=== PATIENT | male | born 1965 | race Caucasian/White ===

== ENCOUNTER → 2020-09-08 09:09 | Outpatient (BNVA) | payer OTHER, SELFPAY | PROVIDERS: PCP Family Medicine; Visit Provider Internal Medicine Cardiovascular Disease | DX: I95.9 Hypotension, unspecified (principal); I10 Essential (primary) hypertension; I25.118 Atherosclerotic heart disease of native coronary artery with other forms of angina pectoris | CPT/HCPCS: 93005; 99212 ==

== ENCOUNTER 2020-10-20 12:34 | Outpatient (REF) | payer OTHER, SELFPAY ==
--- NOTE | ~2020-10-20 | CT_ITS ---
EXAMINATION: CT LUMBAR SPINE WITHOUT CONTRAST CLINICAL INFORMATION: Low back pain. COMPARISON: Plain films of the lumbar spine 02/07/2018. MRI scan of the lumbar spine 10/19/2016. TECHNIQUE: A noncontrast axial CT scan of the lumbar spine was obtained. Coronal and sagittal reformatted images were generated at the acquisition workstation. This CT examination was performed using dose optimization techniques as appropriate, variously including the following: *Automated exposure control *Adjustment of mA and/or kV according to patient size (this includes techniques or standardized protocols for targeted exams where dose is matched to indication/reason for exam; i.e. extremities or head) *Use of iterative reconstruction technique DLP; 566 mGy-cm FINDINGS: There is a mild levoscoliosis. There has been interval decrease in the mild dextroscoliosis of L4 on L5. There are bilateral pedicular screws joined by vertical rods in L4 and L5 and there is an interbody device. These findings are new compared to the prior MRI scan, but were seen on the more recent plain films. There is sclerosis of the endplates of L4-L5 and there is suggestion of mild subsidence of the interbody device. Intervertebral disc heights are maintained at other levels. Vertebral bodies have normal height and contour no fractures are demonstrated. Overall, marrow signal is homogenous. The visualized retroperitoneal and pelvic structures are unremarkable. Spinal levels: T12-L1: The facet joints appear normal bilaterally. Disc contour is normal. There is no central stenosis or foraminal narrowing. L1-L2: There is moderate to severe bilateral facet arthropathy. Posterior disc contour is normal. There is no central stenosis or foraminal narrowing. L2-L3: There is moderate bilateral facet arthropathy. Disc contour is normal. There is no central stenosis or foraminal narrowing. L3-L4: There is moderate bilateral facet arthropathy. There is mild annular calcification, and there are small inferior foraminal disc protrusions bilaterally without exiting nerve root impingement. There is no central stenosis. L4-L5: There has been a instrumented posterior decompression and fusion. There is moderate to severe bilateral facet arthropathy. There is an osteophytic ridge off the inferior endplate of L4 centrally and toward the left, but there is no central stenosis. There may be small disc osteophytes in the inferior neural foramina. L5-S1: There is severe bilateral facet arthropathy. There is a left-sided facet osteophyte narrowing the left subarticular recess. There is a prominent posterior disc protrusion, which compresses the thecal sac and impinges on the traversing S1 nerve roots bilaterally. Small protrusions are noted in the inferior neural foramina bilaterally, more prominent on the left. There is mild to moderate central stenosis. CT/CT lumbar spine wo con IMPRESSION: 1. Since the prior MRI scan there has been an instrumented posterior decompression and fusion at L4-L5. The hardware appears intact. 2. There is a large posterior disc protrusion at L5-S1 which compresses the thecal sac and impinges on the traversing S1 nerve roots. There is mild to moderate central stenosis. There are bilateral foraminal protrusions. 3. At L4-L5 there is an osteophytic ridge off the inferior endplate of L4 centrally and toward the left. There may be small disc osteophytes in the inferior neural foramina. There is no central stenosis.
== END 2020-10-20 12:35 | disposition home or self-care (01) ==
LOC: HO.CT 12:34
PROVIDERS: Visit Provider Family Medicine
DX: M54.5 Low back pain (principal)
CPT/HCPCS: 72131

== ENCOUNTER 2021-04-24 10:00 | Outpatient (RCR) | payer OTHER, SELFPAY ==
[2021-04-21 10:07] VITALS: BP 114/69; PULSE 62
== END 2021-05-12 10:41 | disposition home or self-care (01) ==
LOC: HO.PT 10:00
PROVIDERS: PCP Family Medicine; Visit Provider Family Medicine
DX: M54.5 Low back pain (principal)
CPT/HCPCS: 97110; 97162; 97530

== ENCOUNTER → 2021-09-11 08:39 | Outpatient (BNVA) | payer OTHER, SELFPAY | PROVIDERS: PCP Family Medicine; Referring Provider Family Medicine; Visit Provider Internal Medicine Cardiovascular Disease | DX: I25.10 Atherosclerotic heart disease of native coronary artery without angina pectoris (principal); I10 Essential (primary) hypertension | CPT/HCPCS: 93005; 99212 ==

== ENCOUNTER → 2021-10-20 07:29 | Outpatient (REF) | payer OTHER, SELFPAY ==
--- NOTE | 2021-10-20 07:31 | CA_ITS ---
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 Study Quality: Fair ECG Rhythm: Sinus Conclusions: - 1. Normal LV systolic function with mild LVH with grade 1 diastolic dysfunction 2. Normal cardiac valvular Doppler 3. Normal RV systolic pressure 4. No pericardial effusion Findings Left Ventricle Normal left ventricular size and systolic function. There is mildly increased left ventricular wall thickness. The visually estimated ejection fraction is between 60-65%. Spectral Doppler is indicative of an impaired relaxation filling pattern. E/E prime ratio is <8, consistent with normal filling pressures. Evidence suggests grade I (mild) diastolic dysfunction. Right Ventricle Normal right ventricular cavity size and systolic function. Atria The left atrium is normal in size. There is lipomatous hypertrophy of the interatrial septum. There is no evidence of interatrial shunt. The right atrium is normal in size. Aortic Valve The aortic valve structure and function is likely normal. There is mild calcification of the aortic valve. There is no aortic valve stenosis. There is no aortic valve regurgitation. Mitral Valve Normal mitral valve structure and function. There is trace mitral valve regurgitation. There is no mitral valve stenosis. Pulmonic Valve The pulmonic valve was not well visualized. Tricuspid Valve Likely normal tricuspid valve structure and function. There is trace tricuspid valve regurgitation. The right ventricular systolic pressure is normal. There is no evidence of pulmonary hypertension. Great Vessels All visible segments of the aorta are normal in size. The pulmonary artery was not well visualized. Venous The inferior vena cava is normal in size and collapses greater than 50% with inspiration. Pericardium/Pleural There is no evidence of pericardial effusion. Measurements 2D Linear Measurements IVSd: 1.29 0.6-0.9/0.6-1.0 cm LVIDd: 3.59 3.9-5.3/4.2-5.9 cm LVIDd Index: 1.80 2.4-3.2/2.2-3.1 cm/m2 LVIDs: 2.40 2.0-3.6 cm LVPWd: 1.25 0.7-1.1 cm Ao Root: 3.10 2.1-3.5 cm LA Diam: 3.40 2.7-3.8/3.0-4.0 cm LAIDs Index: 1.71 1.5-2.3 cm/m2 LV Mass: 191.44 67-162/88-224 g LV Mass Index: 96.20 43-95/49-115 g/m2 LVOT Diam: 2.00 3.0+(-)1.3 cm Mitral Valve MV Pk E: 0.70 MV PK A: 0.75 MV Decel Time: 168.00 E/A: 0.90 E'Lateral: 8.70 E'Medial: 6.53 E/E' Med: 10.70 E/E' Lat: 8.00 PHT: 49.00 MVA PHT: 4.49 Decel [place]: 4.16 Aortic Valve AoV Pk Sagar: 1.54 AoV Mn Sagar: 1.02 AoV VTI: 0.32 AoV Pk Grad: 9.00 Aov Mn Grad: 5.00 LAUREN Cont.VTI: 2.53 LVOT LVOT Pk Sagar: 1.20 LVOT Mn Sagar: 0.74 LVOT VTI: 0.26 LVOT Pk Grad: 6.00 LVOT Mn Grad: 3.00 LVOT Diam: 2.00 LVOT Area: 3.14 Diastolic Function MV Pk E: 0.70 MV Pk A: 0.75 E/A: 0.90 E'Medial: 6.53 E/E' Med: 10.70 E' Laterial: 8.70 E/E' Lat: 8.00 Tricuspid Valve TR Pk Sagar: 1.67 TR Pk Grad: 11.00 RA Press: 3.00 RVSP: 14.00 Great Vessels Aorta Ao Root-2D: 3.10 2.0-3.7 cm Ao Asc: 3.10 2.1-3.4 cm Pulmonary Valve PV Pk Sagar: 1.14 Peak PV Grad: 5.00 Updated in Other Vendor System with Status of Final Meek Modi MD electronically signed on 10/20/2021 5:07:30 PM with status of Final
== END ==
LOC: HO.CARD 07:29
PROVIDERS: PCP Family Medicine; Visit Provider Internal Medicine Cardiovascular Disease
DX: I25.10 Atherosclerotic heart disease of native coronary artery without angina pectoris (principal)
CPT/HCPCS: 93306

== ENCOUNTER 2021-12-06 09:24 | Outpatient (REF) | payer OTHER, SELFPAY ==
--- NOTE | 2021-12-06 09:29 | EMG_ITS ---
This is a 56-year-old man with history of persistent numbness in the right 5th finger for more than 6 months. PHYSICAL EXAMINATION: He is alert and oriented with normal intellectual functions. Cranial nerves II through XII are normal. He has mild weakness of finger spread and numbness in the right 5th finger and the ulnar border of the 4th finger. IMPRESSION: Ulnar neuropathy. 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 EMG of the right C6-T1 innervated muscles, consistent with chronic denervation in the ulnar innervated intrinsic hand muscles. MD DON Nash/AALIYAH / [id number]
== END 2021-12-06 09:25 | disposition home or self-care (01) ==
LOC: HO.NEURO 09:24
PROVIDERS: PCP Family Medicine; Visit Provider Family Medicine
DX: R20.2 Paresthesia of skin (principal)
CPT/HCPCS: 95885; 95910

== ENCOUNTER → 2021-12-13 10:42 | Outpatient (BNVA) | payer OTHER, SELFPAY | PROVIDERS: PCP Family Medicine; Visit Provider Orthopaedic Surgery | DX: M65.351 Trigger finger, right little finger (principal); G56.21 Lesion of ulnar nerve, right upper limb | CPT/HCPCS: 99202 ==

== ENCOUNTER → 2022-02-01 13:24 | Outpatient (BNVA) | payer OTHER, SELFPAY | PROVIDERS: PCP Family Medicine; Referring Provider Family Medicine; Visit Provider Nurse Practitioner Family | DX: Z01.810 Encounter for preprocedural cardiovascular examination (principal); I25.118 Atherosclerotic heart disease of native coronary artery with other forms of angina pectoris; I10 Essential (primary) hypertension; E78.5 Hyperlipidemia, unspecified; E11.9 Type 2 diabetes mellitus without complications; Z79.899 Other long term (current) drug therapy | CPT/HCPCS: 93005; 99212; Q3014 ==

== ENCOUNTER → 2022-09-13 08:13 | Outpatient (BNVA) | payer OTHER, SELFPAY | PROVIDERS: PCP Family Medicine; Referring Provider Family Medicine; Visit Provider Internal Medicine Cardiovascular Disease | DX: I25.10 Atherosclerotic heart disease of native coronary artery without angina pectoris (principal); I10 Essential (primary) hypertension | CPT/HCPCS: 99212 ==

== ENCOUNTER 2023-04-04 08:47 | Outpatient (AMB) | payer OTHER, SELFPAY ==
[2023-04-04 08:50] VITALS: BP 115/60; PULSE 70; BMI 29.2
--- NOTE | 2023-04-04 08:50 | MHC.OFFVIS ---
Intake Vital Signs 04/04/23 08:50 Height 5 ft 6 in Weight 180 lb 12.465 oz BMI 29.2 BP 115/60 Blood Pressure Location Lt brachial Position Sitting Pulse 70 Intake Visit Reasons: 6 month f/u EKG Intake Note: 6 month f/u with ekg Academic Guidance Specialist Required: Yes Academic Guidance Specialist Name: robert eddy [id number] Allergies No Known Allergies [No Known Allergies*] Allergy (Verified 04/04/23 08:58) Medication List - Last Reconciled 04/04/23 by Maki Van NP-C albuterol sulfate 90 mcg/actuation 90 mcg inhalation Q4H PRN amitriptyline 10 mg PO BEDTIME aspirin 81 mg PO QAM atorvastatin 80 mg PO BEDTIME cetirizine 10 mg PO BEDTIME cholecalciferol (vitamin D3) 50 mcg PO DAILY dulaglutide (Trulicity) mg subcut QWEEK enalapril maleate 10 mg PO BID metoprolol succinate ER 100 mg PO QAM nitroglycerin 0.4 mg sublingual ONCE sertraline 100 mg PO DAILY HPI 6 month f/u EKG HPI Details Chino is a 58-year-old male with past medical history of hypertension, hyperlipidemia, diabetes, mild obesity, 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 Today he states that he has been doing well over the last 6 months. He does admit to having a discomfort in his left chest region and shortness of breath when he walks fast. He tells me he has had this symptom right along and it is not new. He also describes having problems with his left pleura which is causing pain at times with deep inspiration. Tells me this discomfort is different than the feeling he gets with walking. No shortness of breath or chest discomfort at rest or during the night. No PND, orthopnea or edema. No dizziness, presyncope, syncope, falls. He does normal ADLs but no routine exercise. He takes all meds as directed. 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 [facility] Medical History Coronary artery arteriosclerosis Diabetes mellitus Exertional angina HTN (hypertension) Hyperlipidemia Surgical History History of back surgery Hx of cardiac cath Hx of colonoscopy Family History Father No problems noted. Mother Breast cancer Social History Alcohol intake: current Alcohol intake frequency: holidays/special occasions only Patient Tobacco Use Status: Never used Tobacco Review of Systems Const All systems reviewed & are unremarkable except as noted in HPI and below ENT Reports dizziness Card Reports chest pain, Denies chest pain at rest, Denies chest pain with activity, Denies rapid heart rate, Denies pedal edema, Denies edema, Denies leg edema, Denies lightheadedness, Denies palpitations, Denies dyspnea, Reports dyspnea on exertion and Denies orthopnea Resp Denies cough, Denies dyspnea and Reports dyspnea on exertion GI Denies hematochezia and Denies change in stool character Musc Denies abnormal gait, Reports limited range of motion, Reports muscle cramps, Denies muscle weakness, Denies numbness, Denies radiating pain into limb, Denies stiffness and Denies tingling Neuro Denies abnormal gait, Reports dizziness, Denies numbness and Denies tingling Endo Denies palpitations Physical Exam Vital Signs: Last Vital Signs Pulse 70 04/04/23 08:50 BP 115/60 04/04/23 08:50 BMI result Body Mass Index 29.2 Const General: cooperative, healthy appearing, no acute distress, alert and awake Orientation/consciousness: patient oriented x3 HEENT Head: Yes normal to inspection Eyes Sclerae: sclerae normal Neck Neck: Yes normal visual inspection Carotids: normal carotid upstroke Chest Chest palpation & inspection: normal inspection of the chest Resp Effort & Inspection: normal respiratory effort, able to speak in complete sentences and not labored Auscultation: clear to auscultation bilaterally, no crackles, no rales, no rhonchi and no wheezes Cardio Jugular venous distension: no JVD Rate: regular rate Rhythm: regular rhythm Heart sounds: S1 normal heart sound present and S2 normal heart sound present Peripheral pulses: Peripheral pulses 2+ throughout GI Inspection: Yes normal to inspection Skin General skin exam: no rashes or lesions noted Neuro General: patient oriented x3 Extrem General: Yes normal to inspection and No edema Psych Appearance: grossly normal Mental Status: mental status grossly normal Speech and movement: Normal speech and movement present Office Procedures EKG Details: Today, read by me, normal sinus rhythm, no acute ST or T-wave abnormalities, no significant change from prior EKG, rate 70, QTC 408 millisecond [id number], Complete Assessment & Plan Assessment & Plan (1) Coronary artery arteriosclerosis: Comment: 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 He has chronic stable exertional angina which is unchanged according to him. He is maintained on triple antianginal therapy including metoprolol, isosorbide and Ranexa. EKG today showing normal sinus rhythm with no acute ST or T-wave abnormalities, rate 70. Last echocardiogram done 10/20/2021 showing EF 60-65%, grade 1 diastolic dysfunction, no reports of regional wall motion abnormalities. Signs and symptoms of worsening angina reviewed. Continue current medical management including dual antianginals, aspirin, high-dose atorvastatin. Will increase the dose of his Ranexa to tried to improve upon his exertional symptoms. EKG in the office in 2 weeks. Has sublingual nitroglycerin he can use if needed for chest discomfort not relieved with rest. Emergency care if warranted for symptoms. Will update echo prior to next visit to reassess EF and wall motion. Cardiology follow-up 6 months sooner if needed (2) Exertional angina: Comment: Stable Code(s): I20.8 - Other forms of angina pectoris (3) HTN (hypertension): Code(s): I10 - Essential (primary) hypertension Plan: Well controlled at this time. (4) Hyperlipidemia: Code(s): E78.5 - Hyperlipidemia, unspecified Plan: [place] LDL goal less than 70 in patient with diabetes and CAD. Labs done 10/20/2019 at [facility] showed LDL 67. He continues on high-dose atorvastatin. Labs have been checked by his PCP. Will reach out to [facility] to obtain (5) Diabetes mellitus: Code(s): E11.9 - Type 2 diabetes mellitus without complications Plan: Hemoglobin A1c goal less than 7. Managed by his PCP Orders: Orders CA echo transthoracic complete 5 Months I25.10 - Atherosclerotic heart disease of [place] coronary artery without angina pectoris Coding Level of Care Code Est Pt Level 4 (95657) Diagnoses Coronary artery arteriosclerosis I25.10 Exertional angina I20.8 HTN (hypertension) I10 Hyperlipidemia E78.5 Diabetes mellitus E11.9 CPT Codes EKG - CPT: [id number], Complete ([id number]) Time Spent (min) 24 Comment Chart review, documentation, interview, assessment
== END 2023-04-04 09:20 | disposition home or self-care (01) ==
PROVIDERS: PCP Family Medicine; Referring Provider Family Medicine; Visit Provider Nurse Practitioner Family
DX: I25.119 Atherosclerotic heart disease of native coronary artery with unspecified angina pectoris (principal); I10 Essential (primary) hypertension; E78.5 Hyperlipidemia, unspecified; E11.9 Type 2 diabetes mellitus without complications
CPT/HCPCS: 93010; 99214

== ENCOUNTER → 2023-04-04 08:47 | Outpatient (BNVA) | payer OTHER, SELFPAY | PROVIDERS: PCP Family Medicine; Referring Provider Family Medicine; Visit Provider Nurse Practitioner Family | DX: I25.10 Atherosclerotic heart disease of native coronary artery without angina pectoris (principal); I20.8 Other forms of angina pectoris; I10 Essential (primary) hypertension; E78.5 Hyperlipidemia, unspecified; E11.9 Type 2 diabetes mellitus without complications | CPT/HCPCS: 93005; 99212 ==

== ENCOUNTER 2023-04-29 08:27 | Outpatient (REF) | payer OTHER, SELFPAY ==
[2023-04-29 11:17] LABS: MANUAL DIFF FLAG NO
[2023-04-29 11:37] LABS: Basophils Percent Auto 0.4 % (0-2); Eosinophils Absolute Auto 0.2 X10*3/uL (0.0-0.4); Eosinophils Percent Auto 2.3 % (0-4); Hematocrit 41.3 % (42.0-52.0); Hemoglobin 13.5 g/dl (14.0-18.0); Imm Gran Abs Auto 0.05 X10*3/uL (0.00-0.03); Imm Gran Pct Auto 0.6 % (0.0-0.4); Lymphocytes Absolute Auto 2.1 X10*3/uL (1.2-4.9); Lymphocytes Percent Auto 24.6 % (20-40); Mean Corpuscular HGB Conc 32.7 g/dl (31.0-36.0); Mean Corpuscular Hemoglobin 30.7 pg (27.0-33.0); Mean Corpuscular Volume 93.9 fL (80.0-98.0); Mean Platelet Volume 12.5 fL (9.4-12.4); Monocytes Absolute Auto 0.7 X10*3/uL (0.1-1.2); Monocytes Percent Auto 8.8 % (2-11); Neutrophils Absolute Auto 5.4 x10*3/uL (2.0-8.3); Neutrophils Percent Auto 63.3 % (45-73); Platelet Count 164 X10*3/uL (160-400); Red Cell Distribution Width 13.2 % (11.0-16.0); White Blood Count 8.4 X10*3/uL (4.8-10.8)
[2023-04-29 12:12] LABS: Estimated Average Glucose 128 mg/dL; Hemoglobin A1c % 6.1 % (<6.0)
[2023-04-29 12:26] LABS: Alanine Aminotransferase 42 U/L (0-40); Alkaline Phosphatase 47 U/L (39-117); Anion Gap 10 (12-20); Aspartate Amino Transferase 29 U/L (5-37); Bilirubin Direct 0.3 mg/dL (0.0-0.5); Bilirubin Total 0.7 mg/dL (0.0-1.0); Blood Urea Nitrogen 10 mg/dL (9-16); Calcium 8.8 mg/dL (8.4-10.2); Carbon Dioxide 28 mmol/L (22-29); Chloride 107 mmol/L (96-108); Cholesterol 90 mg/dL (<200); Estimated Glomerular Filt Rate > 60; Glucose Random 113 mg/dL (60-115); HDL Cholesterol 27 mg/dL (>40); LDL Cholesterol Calculated 43 mg/dL (<100); Sodium 140 mmol/L (135-145); Triglycerides 100 mg/dL (<150)
[2023-04-29 12:34] LABS: Free T4 (Free Thyroxine) 0.78 ng/dL (0.71-1.85); Thyroid Stimulating Hormone 1.43 uIU/mL (0.32-4.0)
[2023-04-29 13:03] LABS: Microalbum/Creatinine Ratio Ur 3.8 ug/mg cr (<30)
[2023-04-29 13:09] LABS: CT PCR NOT DETECTED (Not Detect.); NG PCR NOT DETECTED (Not Detect.)
[2023-04-30 04:11] LABS: Syphilis Screen Nonreactive (Nonreactive)
[2023-04-30 04:23] LABS: HIV AB/AG Nonreactive (Nonreactive); HIV Num 1 0.05 S/CO (0.00-0.99)
[2023-04-30 04:24] LABS: ~HepC Num1 0.68 S/CO (0.00-0.79); ~Hepatitis C Antibody Nonreactive (Nonreactive)
== END 2023-04-29 08:28 | disposition home or self-care (01) ==
LOC: HO.HHCL 08:27
PROVIDERS: Visit Provider Family Medicine
DX: E11.9 Type 2 diabetes mellitus without complications (principal); Z20.2 Contact with and (suspected) exposure to infections with a predominantly sexual mode of transmission; E78.5 Hyperlipidemia, unspecified; M54.50 Low back pain, unspecified; R21 Rash and other nonspecific skin eruption; L40.9 Psoriasis, unspecified; G25.81 Restless legs syndrome
CPT/HCPCS: 0353U; 80048; 80061; 80076; 82043; 82306; 83036; 84439; 84443; 85025; 86780; 86803; 87389

== ENCOUNTER → 2023-10-14 14:27 | Outpatient (REF) | payer OTHER, SELFPAY ==
--- NOTE | 2023-10-14 14:34 | CA_ITS ---
Transthoracic Echocardiogram Patient (Last, First, Middle): Chino Bo, Gender: Male Date of : 1965 Age: 58 Procedure Date: 10/14/2023 Procedure Type: Transthoracic Echocardiogram Location: OP Height: 167. cm Weight: 82.1 kg BSA: 1.91 m2 Heart Rate: 65 bpm BP: 110 / 65 mmHg Veneer Matcher: CHUY Referring MD: Maki Van [facility] Symptoms: I25.10 - Atherosclerotic heart disease of [place] coronary artery without... Study Quality: Fair ECG Rhythm: Sinus Conclusions: - The left ventricular systolic function is normal. The calculated ejection fraction is 61% by biplane method. - No obvious valvular pathology seen on this study. Findings Left Ventricle Normal left ventricular cavity size. There is normal left ventricular wall thickness. The left ventricular systolic function is normal. The calculated ejection fraction is 61% by biplane method. There is no evidence of regional wall motion abnormalities. Diastolic function is normal for age. LV peak GLS -19.3%. Right Ventricle Normal right ventricular cavity size and systolic function. Atria Both atria are normal in size. Aortic Valve There is a normal trileaflet aortic valve. There is no aortic valve stenosis. There is no aortic valve regurgitation. Mitral Valve The mitral valve appears normal. There is no mitral valve regurgitation. There is no mitral valve stenosis. Pulmonic Valve The pulmonic valve is likely normal. Tricuspid Valve There is no tricuspid valve regurgitation. Tricuspid regurgitation envelope is inadequate for calculation of right ventricular systolic pressure. Great Vessels The asc aorta is normal in size. Venous The inferior vena cava is normal in size and collapses greater than 50% with inspiration. Pericardium/Pleural There is no evidence of pericardial effusion. Prior Study Comparison No significant change compared to prior study dated: 10/20/2021. Recommendations, Care & Conclusions No obvious valvular pathology seen on this study. Measurements 2D Linear Measurements IVSd: 0.94 0.6-0.9/0.6-1.0 cm LVIDd: 4.44 3.9-5.3/4.2-5.9 cm LVIDd Index: 2.32 2.4-3.2/2.2-3.1 cm/m2 LVIDs: 2.06 2.0-3.6 cm LVPWd: 0.96 0.7-1.1 cm LA Diam: 2.30 2.7-3.8/3.0-4.0 cm LAIDs Index: 1.20 1.5-2.3 cm/m2 LV Mass: 173.75 67-162/88-224 g LV Mass Index: 90.97 43-95/49-115 g/m2 LVOT Diam: 1.80 3.0+(-)1.3 cm 2D Systolic Function EF 4C: 60.50 >55% EF 2C: 60.10 >55% EF BiP: 60.50 >55% Mitral Valve MV Pk E: 0.87 MV PK A: 0.86 MV Decel Time: 194.00 E/A: 1.00 E'Lateral: 8.16 E'Medial: 6.53 E/E' Med: 13.40 E/E' Lat: 10.70 PHT: 57.00 MVA PHT: 3.86 Decel [place]: 4.51 Aortic Valve AoV Pk Sagar: 1.27 AoV Mn Sagar: 0.86 AoV VTI: 0.25 AoV Pk Grad: 6.00 Aov Mn Grad: 4.00 LAUREN Cont.VTI: 2.24 LVOT LVOT Pk Sagar: 1.05 LVOT Mn Sagar: 0.73 LVOT VTI: 0.22 LVOT Pk Grad: 4.00 LVOT Mn Grad: 2.00 LVOT Diam: 1.80 LVOT Area: 2.54 Diastolic Function MV Pk E: 0.87 MV Pk A: 0.86 E/A: 1.00 E'Medial: 6.53 E/E' Med: 13.40 E' Laterial: 8.16 E/E' Lat: 10.70 Right Ventricle TAPSE (mm): 19.90 TVS' Sagar: 9.79 Tricuspid Valve RA Press: 3.00 Great Vessels Aorta Sinus of Valsalva: 3.10 2.0-3.5 cm Ao Asc: 3.00 2.1-3.4 cm Pulmonary Valve PV Pk Sagar: 0.95 Peak PV Grad: 4.00 Updated in Other Vendor System with Status of Final Kirk Hou MD electronically signed on 10/15/2023 5:59:25 AM with status of Final
== END ==
LOC: HO.CARD 14:27
PROVIDERS: PCP Family Medicine; Visit Provider Nurse Practitioner Family
DX: I25.10 Atherosclerotic heart disease of native coronary artery without angina pectoris (principal)
CPT/HCPCS: 93306; 93356

== ENCOUNTER → 2023-10-14 14:34 | Outpatient (BNV) | payer OTHER, SELFPAY | PROVIDERS: PCP Family Medicine; Visit Provider Internal Medicine | DX: I25.10 Atherosclerotic heart disease of native coronary artery without angina pectoris (principal) | CPT/HCPCS: 93306 ==

== ENCOUNTER 2023-10-24 08:34 | Outpatient (AMB) | payer OTHER, SELFPAY ==
[2023-10-24 08:37] VITALS: BP 114/62; PULSE 68; BMI 30.3
--- NOTE | 2023-10-24 08:37 | A.OFFVIS_ITS ---
Intake Vital Signs 10/24/23 08:37 Height 5 ft 6 in Weight 187 lb 13.341 oz BMI 30.3 BP 114/62 Blood Pressure Location Lt brachial Position Sitting Pulse 68 Pulse Source Pulse Oximeter Intake Visit Reasons: f/u after echo Marine Engine Driver Required: Yes Marine Engine Driver Language: Supply Chain Systems Manager Name: robert elena [id number] Allergies No Known Allergies [No Known Allergies*] Allergy (Verified 10/24/23 08:39) Medication List - Last Reconciled 10/24/23 by Maki Van NP-C amitriptyline 10 mg PO BEDTIME aspirin 81 mg PO QAM cetirizine 10 mg PO BEDTIME cholecalciferol (vitamin D3) 50 mcg PO DAILY dulaglutide (Trulicity) mg subcut QWEEK enalapril maleate 10 mg PO BID metoprolol succinate ER 100 mg PO QAM nitroglycerin 0.4 mg sublingual ONCE oxycodone 5 mg PO Q6H PRN ranolazine ER 500 mg PO BID 90 days HPI f/u after echo HPI Details Chino is a 58-year-old male with past medical history of hypertension, hyperlipidemia, diabetes, mild obesity, 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 Today he reports he has been doing well since his last visit in April. He denies any chest discomfort at rest or with activity. He has not been brought bothered by the prior left chest discomfort that he reported in the past. He has no concerning shortness of breath, PND, orthopnea or edema. No palpitations, lightheadedness, CP, syncope, falls. 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 Taking all meds as directed. He walks routinely for exercise. 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 [facility] Medical History Exertional angina Diabetes mellitus Hyperlipidemia HTN (hypertension) Coronary artery arteriosclerosis Surgical History Hx of colonoscopy History of back surgery Hx of cardiac cath Family History Father No problems noted. Mother Breast cancer Social History Alcohol intake: current Alcohol intake frequency: holidays/special occasions only Patient Tobacco Use Status: Never used Tobacco Review of Systems Const All systems reviewed & are unremarkable except as noted in HPI and below ENT Denies dizziness Card Denies chest pain, Denies chest pain at rest, Denies chest pain with activity, Denies rapid heart rate, Denies pedal edema, Denies edema, Denies leg edema, Denies lightheadedness, Denies palpitations, Denies dyspnea, Denies dyspnea on exertion and Denies orthopnea Resp Denies cough, Denies dyspnea and Denies dyspnea on exertion GI Denies hematochezia and Denies change in stool character Musc Denies abnormal gait, Denies limited range of motion, Denies muscle cramps, Denies muscle weakness, Denies numbness, Denies radiating pain into limb, Denies stiffness and Denies tingling Neuro Denies abnormal gait, Denies dizziness, Denies numbness and Denies tingling Endo Denies palpitations Physical Exam Vital Signs: Last Vital Signs Pulse 68 10/24/23 08:37 BP 114/62 10/24/23 08:37 BMI result Body Mass Index 30.3 Const General: cooperative, healthy appearing, comfortable and no acute distress Orientation/consciousness: patient oriented x3 Neck Neck: Yes normal visual inspection and Yes no JVD Carotids: normal carotid upstroke Chest Chest palpation & inspection: normal inspection of the chest Resp Effort & Inspection: normal respiratory effort Auscultation: clear to auscultation bilaterally, no rales, no rhonchi and no wheezes Cardio Jugular venous distension: no JVD Rate: regular rate Rhythm: regular rhythm Heart sounds: S1 normal heart sound present, S2 normal heart sound present, no murmurs and no rubs Neuro General: patient oriented x3 Extrem General: Yes normal to inspection, No no pedal edema and No calf tenderness Psych Appearance: grossly normal Mental Status: mental status grossly normal Speech and movement: Normal speech and movement present Assessment & Plan Assessment & Plan (1) Coronary artery arteriosclerosis: Comment: 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 He had chronic stable exertional angina which is now controlled with triple antianginal therapy including metoprolol, isosorbide and Ranexa. EKG last visit showing normal sinus rhythm with no acute ST or T-wave abnormalities, rate 70. Echocardiogram done 10/14/2023 showing EF 61%, no evidence of regional wall motion abnormalities. Condition stable at present. Signs and symptoms of worsening angina reviewed. Continue current medical management including antianginals, aspirin, high-dose atorvastatin. Has sublingual nitroglycerin he can use if needed for chest discomfort not relieved with rest. Emergency care if ever needed for symptoms. Cardiology follow-up 6 months sooner if needed (2) HTN (hypertension): Code(s): I10 - Essential (primary) hypertension Plan: Well controlled at this time. No med changes made (3) Hyperlipidemia: Code(s): E78.5 - Hyperlipidemia, unspecified Plan: [place] LDL goal less than 70 in patient with diabetes and CAD. Labs done 04/29/2023 showed LDL 43. Continue atorvastatin (4) Diabetes mellitus: Code(s): E11.9 - Type 2 diabetes mellitus without complications Plan: Hemoglobin A1c goal less than 7. Managed by his PCP Plan Time spent on chart review, documentation, interview and assessment Coding Level of Care Code Est Pt Level 3 (47367) Diagnoses Coronary artery arteriosclerosis I25.10 HTN (hypertension) I10 Hyperlipidemia E78.5 Diabetes mellitus E11.9 Time Spent (min) 24
== END 2023-10-24 09:09 | disposition home or self-care (01) ==
PROVIDERS: PCP Family Medicine; Visit Provider Nurse Practitioner Family
DX: I25.10 Atherosclerotic heart disease of native coronary artery without angina pectoris (principal); I10 Essential (primary) hypertension; E78.5 Hyperlipidemia, unspecified; E11.9 Type 2 diabetes mellitus without complications
CPT/HCPCS: 99213

== ENCOUNTER → 2023-10-24 08:34 | Outpatient (BNVA) | payer OTHER, SELFPAY | PROVIDERS: PCP Family Medicine; Visit Provider Nurse Practitioner Family | DX: I25.10 Atherosclerotic heart disease of native coronary artery without angina pectoris (principal); I10 Essential (primary) hypertension; E78.5 Hyperlipidemia, unspecified; E11.9 Type 2 diabetes mellitus without complications | CPT/HCPCS: 99212 ==

== ENCOUNTER 2024-02-18 12:40 | Outpatient (AMB) | payer OTHER, SELFPAY ==
[2024-02-18 12:55] VITALS: BP 102/60; PULSE 70; BMI 29.7
--- NOTE | 2024-02-18 12:55 | MHC.OFFVIS ---
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 Returner Name: michael laboy [id number] Allergies No Known Allergies [No Known Allergies*] Allergy (Verified 02/18/24 12:57) Medication List - Last Reconciled 02/18/24 by Maki Van, YO-C albuterol sulfate 90 mcg/actuation (Ventolin HFA) inhalation amitriptyline 10 mg PO BEDTIME aspirin 81 mg PO QAM cetirizine 10 mg PO BEDTIME cholecalciferol (vitamin D3) 50 mcg PO DAILY dulaglutide (Trulicity) mg subcut QWEEK enalapril maleate 10 mg PO BID khgruzaohjt-hiyuzpxxy-hyulrlol 100-62.5-25 mcg (Trelegy Ellipta) 1 ea inhalation DAILY metoprolol succinate ER 100 mg PO QAM nitroglycerin 0.4 mg sublingual ONCE oxycodone 5 mg PO Q6H PRN ranolazine ER 500 mg PO BID 90 days HPI HPI 6 month follow up: Details: Chino is a 58-year-old male with past medical history of hypertension, hyperlipidemia, diabetes, mild obesity, 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 Today he reports that for the last 2 months he has been noticing left lateral and posterior thorax discomfort with deep inspiration. He does not notice anterior chest discomfort. He has no exertional symptoms, again only with deep breath. He has not had any recent illness. He denies having fever or cough. He has no shortness of breath, PND, orthopnea or edema. No palpitations, lightheadedness, CP, syncope, falls. 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 Taking all meds as directed. He walks routinely for exercise. 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 [facility] Medical History Exertional angina Diabetes mellitus Hyperlipidemia HTN (hypertension) Coronary artery arteriosclerosis Surgical History Hx of colonoscopy History of back surgery Hx of cardiac cath Family History Father No problems noted. Mother Breast cancer Social History Alcohol intake: current Alcohol intake frequency: holidays/special occasions only Patient Tobacco Use Status: Never used Tobacco Review of Systems Const All systems reviewed & are unremarkable except as noted in HPI and below ENT Reports dizziness Card Reports chest pain, Reports chest pain at rest, Denies chest pain with activity, Denies rapid heart rate, Denies pedal edema, Denies edema, Denies leg edema, Denies lightheadedness, Denies palpitations, Denies dyspnea, Denies dyspnea on exertion and Denies orthopnea Resp Denies cough, Denies dyspnea and Denies dyspnea on exertion GI Denies hematochezia and Denies change in stool character Musc Denies abnormal gait, Denies limited range of motion, Denies muscle cramps, Denies muscle weakness, Denies numbness, Denies radiating pain into limb, Denies stiffness and Denies tingling Neuro Denies abnormal gait, Reports dizziness, Denies numbness and Denies tingling Endo Denies palpitations Physical Exam Vital Signs: BMI result Body Mass Index 29.7 Const General: cooperative, healthy appearing, comfortable and no acute distress Orientation/consciousness: patient oriented x3 Neck Neck: Yes normal visual inspection and Yes no JVD Carotids: normal carotid upstroke Chest Chest palpation & inspection: normal inspection of the chest Resp Effort & Inspection: normal respiratory effort Auscultation: clear to auscultation bilaterally, no rales, no rhonchi and no wheezes Cardio Jugular venous distension: no JVD Rate: regular rate Rhythm: regular rhythm Heart sounds: S1 normal heart sound present, S2 normal heart sound present, no murmurs and no rubs Neuro General: patient oriented x3 Extrem General: Yes normal to inspection, No no pedal edema and No calf tenderness Psych Appearance: grossly normal Mental Status: mental status grossly normal Speech and movement: Normal speech and movement present Assessment & Plan Assessment & Plan (1) Coronary artery arteriosclerosis: Comment: 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 History of chronic stable exertional angina which is controlled with antianginal therapy. On last visit he was on isosorbide however I do not see that on his list today. He is still on metoprolol and Ranexa. He is reporting pleuritic type left lateral thorax discomfort. This sounds atypical for angina. EKG done today showing normal sinus rhythm with no acute ST or T-wave abnormalities, rate 65, QTC 4 3 milliseconds. Echocardiogram done 10/14/2023 showing EF 61%, no evidence of regional wall motion abnormalities. On exam today he does have some fine rales in his left base. Will send him for a chest x-ray to evaluate for any pneumonia. Lab work ordered by his PCP, instructed to obtain. He still may need a stress test going forward. Will determine this after chest x-ray results reviewed. Signs and symptoms of worsening angina reviewed. Continue current medical management including antianginals, aspirin, high-dose atorvastatin. Emergency care if ever needed for symptoms. Cardiology follow-up to be determined. (2) HTN (hypertension): Code(s): I10 - Essential (primary) hypertension Category: Medical Plan: Well controlled at this time. No med changes made (3) Hyperlipidemia: Code(s): E78.5 - Hyperlipidemia, unspecified Category: Medical Plan: [place] LDL goal less than 70 in patient with diabetes and CAD. Labs done 04/29/2023 showed LDL 43. Continue atorvastatin (4) Diabetes mellitus: Code(s): E11.9 - Type 2 diabetes mellitus without complications Category: Medical Plan: Hemoglobin A1c goal less than 7. Managed by his PCP (5) Pleuritic pain: Code(s): R07.81 - Pleurodynia Category: Medical Plan: As above Plan Time spent on chart review, documentation, interview and assessment Orders: Orders XR chest 2V Today R07.81 - Pleurodynia Coding Level of Care Code Est Pt Level 4 (37048) Diagnoses Coronary artery arteriosclerosis I25.10 HTN (hypertension) I10 Hyperlipidemia E78.5 Diabetes mellitus E11.9 Pleuritic pain R07.81 Time Spent (min) 30
== END 2024-02-18 13:25 | disposition home or self-care (01) ==
PROVIDERS: PCP Family Medicine; Visit Provider Nurse Practitioner Family
DX: I25.10 Atherosclerotic heart disease of native coronary artery without angina pectoris (principal); I10 Essential (primary) hypertension; E78.5 Hyperlipidemia, unspecified; E11.9 Type 2 diabetes mellitus without complications; R07.81 Pleurodynia
CPT/HCPCS: 99214

== ENCOUNTER 2024-02-18 12:40 | Outpatient (REF) | payer OTHER, SELFPAY ==
--- NOTE | ~2024-02-18 | XR_ITS ---
EXAMINATION: XR CHEST CLINICAL INFORMATION: Pleurodynia. Left lateral thorax pleuritic pain, faint rales in left base. COMPARISON: Chest radiographs of 10/17/2016, 12/09/2014. TECHNIQUE: 2 views of the chest were obtained. FINDINGS: Cardiomediastinal silhouette is stable. S-shaped thoracolumbar scoliosis with multilevel degenerative changes. Redemonstration of asymmetric volume loss in the left hemithorax with left lateral pleural thickening with subjacent linear and hazy opacities throughout the left lung, lower lung predominant. Stable blunting of the left costophrenic angle. There has been overall increase in appearance of hazy opacities in the jvq-lq-tzzze left lung compared with most recent available exams of 10/17/2016 and 12/09/2014, concerning for superimposed infectious/inflammatory process. There is no gross pneumothorax. No significant right pleural effusion. XR/XR chest 2V IMPRESSION: 1. Redemonstration of asymmetric volume loss in the left hemithorax with left lateral pleural thickening with subjacent linear and hazy opacities throughout the left lung, lower lung predominant. Stable blunting of the left costophrenic angle. There has been overall increase in appearance of hazy opacities in the mid to lower left lung compared with most recent available exams of 10/17/2016 and 12/09/2014, concerning for superimposed infectious/inflammatory process. 2. CT scan could be considered for further evaluation. This study was presented today 02/19/2024 for interpretation. Stat results provided at this time as requested by referring provider.
== END 2024-02-18 12:41 | disposition home or self-care (01) ==
LOC: HO.XRAY 12:40
PROVIDERS: PCP Family Medicine; Visit Provider Nurse Practitioner Family
DX: R07.81 Pleurodynia (principal); I25.10 Atherosclerotic heart disease of native coronary artery without angina pectoris; I10 Essential (primary) hypertension; E78.5 Hyperlipidemia, unspecified; E11.9 Type 2 diabetes mellitus without complications
CPT/HCPCS: 71046; 99212

== ENCOUNTER 2024-02-28 15:33 | Outpatient (REF) | payer OTHER, SELFPAY ==
--- NOTE | ~2024-02-28 | CT_ITS ---
EXAMINATION: CT CHEST WITHOUT CONTRAST CLINICAL INFORMATION: Follow-up left lower lobe opacities. COMPARISON: Chest radiograph dated 02/18/2024; CT chest dated 12/15/2013. TECHNIQUE: Multidetector volumetric CT imaging of the chest was done. Axial MIP volume rendering provided. Sagittal and coronal reformatted images were obtained. This CT examination was performed using dose optimization techniques as appropriate, variously including the following: *Automated exposure control *Adjustment of mA and/or kV according to patient size (this includes techniques or standardized protocols for targeted exams where dose is matched to indication/reason for exam; i.e. extremities or head) *Use of iterative reconstruction technique DLP: 268 mGy-cm FINDINGS: AUTOMATIC THREAD WINDER: Lateral left pleural calcifications and pleural and parenchymal scarring are redemonstrated. The right lung is relatively clear. There is blunting of the left lateral costophrenic angle. LUNGS: Again, there is left pleural calcification and pleural thickening. There is left peripheral parenchymal scarring. At the posterior right base (4:315), there is a stable 2.2 x 1.3 cm focus of round atelectasis. There is a stable right upper lobe calcified granuloma. No new nodule, mass, infiltrate or groundglass opacity is seen. There is no generalized increase in peripheral interlobular septal markings. No small airway thickening is seen. The central airways appear patent. MEDIASTINUM: The mediastinum is normal. CORONARY ARTERY CALCIFICATION: Mild. PLEURA: There is no pleural effusion. There are left pleural calcifications and pleural thickening. AXILLA: No lymphadenopathy. UPPER ABDOMEN: Unremarkable. OSSEOUS STRUCTURES: There is multi-level thoracolumbar spondylosis. A mild T12 anterior wedge compression fracture is again seen. There is no acute or aggressive osseous finding. CT/CT chest wo IV con IMPRESSION: There is a continued stable appearance of left pleural thickening and calcifications and adjacent parenchymal scarring and round atelectasis. Again, there are findings consistent with chronic granulomatous lung disease. Fleischner guidelines were followed.
== END 2024-02-28 15:34 | disposition home or self-care (01) ==
LOC: HO.CT 15:33
PROVIDERS: PCP Family Medicine; Visit Provider Nurse Practitioner Family
DX: R07.81 Pleurodynia (principal); R93.89 Abnormal findings on diagnostic imaging of other specified body structures
CPT/HCPCS: 71250

== ENCOUNTER 2024-07-15 08:31 | Outpatient (REF) | payer OTHER, SELFPAY ==
[2024-07-15 11:02] LABS: Hematocrit 42.4 % (42.0-52.0); Hemoglobin 13.8 g/dl (14.0-18.0); Mean Corpuscular HGB Conc 32.5 g/dl (31.0-36.0); Mean Corpuscular Hemoglobin 30.7 pg (27.0-33.0); Mean Corpuscular Volume 94.4 fL (80.0-98.0); Platelet Count 172 X10*3/uL (160-400); Red Blood Count 4.49 X10*6/uL (4.60-5.80); Red Cell Distribution Width 13.1 % (11.0-16.0); White Blood Count 7.7 X10*3/uL (4.8-10.8)
[2024-07-15 11:27] LABS: Alanine Aminotransferase 54 U/L (0-40); Albumin Level 4.1 g/dL (3.5-5.0); Alkaline Phosphatase 58 U/L (39-117); Anion Gap 11 (12-20); Aspartate Amino Transferase 33 U/L (5-37); Bilirubin Direct 0.2 mg/dL (0.0-0.5); Bilirubin Total 0.8 mg/dL (0.0-1.0); Blood Urea Nitrogen 10 mg/dL (9-16); Calcium 8.8 mg/dL (8.4-10.2); Carbon Dioxide 29 mmol/L (22-29); Chloride 107 mmol/L (96-108); Cholesterol 110 mg/dL (<200); Estimated Glomerular Filt Rate > 60; Glucose Random 130 mg/dL (60-115); HDL Cholesterol 31 mg/dL (>40); LDL Cholesterol Calculated 48 mg/dL (<100); Potassium 4.7 mmol/L (3.3-5.1); Sodium 142 mmol/L (135-145); Total Protein 7.3 g/dL (6.5-8.0); Triglycerides 159 mg/dL (<150)
[2024-07-15 11:32] LABS: HBS Num1 396.21 mIU/mL (0-7.99); HBsAGNum1 0.31 S/CO (0.00-0.99); HIV AB/AG Nonreactive (Nonreactive); HIV Num 1 0.06 S/CO (0.00-0.99); Hepatitis B Surface Antigen Negative (Negative); ~HepC Num1 0.77 S/CO (0.00-0.79); ~Hepatitis B Surface Antibody REACTIVE (Nonreactive); ~Hepatitis C Antibody Nonreactive (Nonreactive)
[2024-07-15 11:40] LABS: Estimated Average Glucose 131 mg/dL; Hemoglobin A1C 198.6829 umol/L; Hemoglobin A1c % 6.2 % (<6.0); Total Hemoglobin (HGBA1C) 4477.5823 umol/L
[2024-07-15 11:51] LABS: Creatinine Urine 181.01 mg/dL; Free T4 (Free Thyroxine) 0.84 ng/dL (0.71-1.85); Microalbum/Creatinine Ratio Ur 4.4 ug/mg cr (<30); Thyroid Stimulating Hormone 1.22 uIU/mL (0.32-4.0); Vitamin D 25-OH Total 40.7 ng/mL (>30)
[2024-07-15 13:33] LABS: CT PCR NOT DETECTED (Not Detect.); NG PCR NOT DETECTED (Not Detect.)
[2024-07-17 07:28] LABS: RPR Rapid Plasma Reagin NON-REACTIVE (NON-REACTIVE)
== END 2024-07-15 08:32 | disposition home or self-care (01) ==
LOC: HO.HHCL 08:31
PROVIDERS: Visit Provider Family Medicine
DX: Z00.00 Encounter for general adult medical examination without abnormal findings (principal); E11.9 Type 2 diabetes mellitus without complications
CPT/HCPCS: 36415; 80048; 80061; 80076; 82043; 82306; 82570; 83036; 84439; 84443; 85027; 86592; 86706; 86803; 87340; 87389; 87491; 87591

== ENCOUNTER 2024-08-10 08:14 | Outpatient (AMB) | payer OTHER, SELFPAY ==
[2024-08-10 08:16] VITALS: BP 106/60; PULSE 68; O2SAT 98; BMI 29.7
--- NOTE | 2024-08-10 08:16 | MHC.OFFVIS ---
Vital Signs 08/10/24 08:16 Height 5 ft 6 in Weight 183 lb 13.848 oz BMI 29.7 BP 106/60 Blood Pressure Location Rt brachial Position Sitting Pulse 68 Pulse Source Pulse Oximeter Pulse Oximetry (%) 98 Oxygen Delivery Method Room Air Intake Visit Reasons: Colonoscopy screening Intake Note: NEW PATIENT Chino presents in office today for a scheduled colo scrn Prior hx of colo/egd? Yes 2013 w/ Dr. Monroe Glass reviewed? Y Allergies reviewed? Y Any significant concerns or questions? None per pt. Pharmacy verified? [facility] Pharmacy Global Category Manager Required: Yes Global Category Manager Services: Global Category Manager Present Global Category Manager Name: Heather [id number] Allergies No Known Allergies [No Known Allergies*] Allergy (Verified 08/10/24 08:17) HPI HPI Colonoscopy screening: Details: 59 year old? male with past medical history of diabetes, depression, psoriasis, RENEE, COPD, CAD, hypertension, hyperlipidemia is here today for pre colonoscopy screening.? Patient was sent to us by his PCP. Last colonoscopy December 2013 1 hyperplastic polyp found.? Patient denies any gastrointestinal symptoms in the past or at present.? Denies any personal or family history of gastrointestinal disease, colon polyps, or CRC.? Denies history of difficulty with sedation or anesthesia in the past.? History of sleep apnea.? Denies any history of renal or hepatic disease.??Patient sees cardiology last appointment in January. Denies any shortness of breath or chest pain with activity. No history of infectious? diseases like hepatitis A, B, C, HIV or tuberculosis.? Patient is on low-dose aspirin PFSH Medical History Exertional angina Diabetes mellitus Hyperlipidemia HTN (hypertension) Coronary artery arteriosclerosis Surgical History Hx of colonoscopy History of back surgery Hx of cardiac cath Family History Father No problems noted. Mother Breast cancer Social History Alcohol intake: current Alcohol intake frequency: holidays/special occasions only Patient Tobacco Use Status: Never used Tobacco Review of Systems Const Denies weight gain and Denies weight loss ENT Reports no additional complaints, Denies dysphagia and Denies odynophagia Card Reports no additional complaints Resp Reports no additional complaints GI Denies abdominal pain, Denies belching, Denies melena, Denies bloating, Denies change in bowel habits, Denies dysphagia, Denies excessive flatus, Denies dyspepsia, Denies heartburn, Denies diarrhea, Denies loose stools, Denies nausea, Denies odynophagia and Denies vomiting Reports no additional complaints Musc Reports no additional complaints Neuro Reports no additional complaints Psych Reports no additional complaints Endo Reports no additional complaints Physical Exam Vital Signs: Last Vital Signs Pulse 68 08/10/24 08:16 BP 106/60 08/10/24 08:16 Pulse Ox 98 08/10/24 08:16 Oxygen Delivery Method Room Air 08/10/24 08:16 BMI result Body Mass Index 29.7 Const General: healthy appearing and no acute distress Nutritional Appearance: obese Orientation/consciousness: patient oriented x3 Resp Effort & Inspection: normal respiratory effort, able to speak in complete sentences, no tracheal deviation and symmetric chest movement Auscultation: clear to auscultation bilaterally Cardio Rate: regular rate GI Inspection: Yes normal to inspection and No distended Palpation (GI): Soft to palpation, not firm, nontender and No hepatosplenomegaly present Auscultation: normal bowel sounds General: Yes no CVA tenderness Back/Spine/Pelvis Back: no CVA tenderness Skin General skin exam: elasticity normal, turgor normal and dry skin Neuro General: patient oriented x3 Psych Appearance: grossly normal Mental Status: mental status grossly normal Assessment & Plan Assessment & Plan (1) Screen for colon cancer: Code(s): Z12.11 - Encounter for screening for malignant neoplasm of colon Plan Patient denies any GI, cardiac or respiratory symptoms.? Denies any issues with anesthesia in the past.?No history infectious diseases in the past or present.? Patient is on low-dose aspirin.? No family or personal history of colon cancer or polyps.? Patient denies melena, hematochezia, unintentional weight loss or ribbon like stools.? Will ask Cardiology for risk stratification before sending patient for procedure. Currently patient denies any chest pain or shortness of breath with or without exertion. History of sleep apnea Discussed at length the pre-procedure,? prep, diet & medications as well as what to expect prior, during and after the procedure.?? Stressed the importance of good bowel prep.? Recommended the use of Vaseline or Calmoseptine OTC & baby wipes with bowel movements to promote comfort.? ?Patient verbalizes understanding and agrees to plan of care.? He was given the opportunity to ask questions and all questions answered.? We will see him after the procedure.? Medications: New bisacodyl (Dulcolax (bisacodyl)) take 4 tabs at noon the day before your colonoscopy 20 mg (4 x 5 mg) PO ONCE 1 day 4 tabs 0RF Z12.11 - Encounter for screening for malignant neoplasm of colon polyethylene glycol 3350 (Miralax) As directed by gastroenterology department at [facility] 238 grams PO ONCE 238 grams 0RF Z12.11 - Encounter for screening for malignant neoplasm of colon Coding Level of Care Code New Pt Level 3 (98058) Diagnoses Screen for colon cancer Z12.11 Time Spent (min) 40 Comment 30 minutes spent with patient and additional 10 minutes spent reviewing his records
== END 2024-08-10 09:08 | disposition home or self-care (01) ==
PROVIDERS: PCP Family Medicine; Visit Provider Nurse Practitioner Family
DX: Z01.818 Encounter for other preprocedural examination (principal); Z12.11 Encounter for screening for malignant neoplasm of colon
CPT/HCPCS: 99024

== ENCOUNTER → 2024-08-10 08:14 | Outpatient (BNVA) | payer OTHER, SELFPAY | PROVIDERS: PCP Family Medicine; Visit Provider Nurse Practitioner Family | DX: Z12.11 Encounter for screening for malignant neoplasm of colon (principal) | CPT/HCPCS: 99212 ==

== ENCOUNTER 2024-09-04 09:43 | Outpatient (AMB) | payer OTHER, SELFPAY ==
--- NOTE | 2024-09-04 10:03 | A.OFFVIS_ITS ---
Vital Signs 09/04/24 10:04 Height 5 ft 6 in Weight 180 lb 12.465 oz BMI 29.2 BP 130/68 Blood Pressure Location Lt brachial Position Sitting Pulse 66 Pulse Source Monitor Intake Visit Reasons: sooner f/up per DC Store Protection Specialist Required: Yes Store Protection Specialist Name: BYRON [id number] Allergies No Known Allergies [No Known Allergies*] Allergy (Verified 08/10/24 08:17) Medication List - Last Reconciled 09/04/24 by KATELYNN [employer] albuterol sulfate 90 mcg/actuation (Ventolin HFA) inhalation amitriptyline 10 mg PO BEDTIME aspirin 81 mg PO QAM bisacodyl (Dulcolax (bisacodyl)) 20 mg (4 x 5 mg) PO ONCE 1 day cetirizine 10 mg PO BEDTIME cholecalciferol (vitamin D3) 50 mcg PO DAILY dulaglutide (Trulicity) mg subcut QWEEK enalapril maleate 10 mg PO BID lyziovyzgxb-pcjvdtjat-ifgsazvu 100-62.5-25 mcg (Trelegy Ellipta) 1 ea inhalation DAILY metoprolol succinate ER 100 mg PO QAM 90 days nitroglycerin 0.4 mg sublingual ONCE oxycodone 5 mg PO Q6H PRN polyethylene glycol 3350 (Miralax) 238 grams PO ONCE ranolazine ER 500 mg PO BID 90 days HPI HPI sooner f/up per DC: Details: Chino is a 59-year-old male with past medical history of hypertension, hyperlipidemia, diabetes, mild obesity, 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 Today he reports that he continues to have some left lateral thorax discomfort with deep inspiration and when over exerting. He now follows with pulmonology. Today he also admits to some anterior chest discomfort when he over exerts light climbing more than 2 flights of stairs. He tells me this symptom is not new for him and is unchanged in the last year. On prior visits a concrete polisher was used yet he did not admit to this symptom. No shortness of breath, PND, orthopnea or edema. No palpitations, lightheadedness, CP, syncope, falls. 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 Taking all meds as directed. He says he walks routinely for exercise. Certified concrete polisher used. PFSH Medical History Exertional angina Diabetes mellitus Hyperlipidemia HTN (hypertension) Coronary artery arteriosclerosis Surgical History Hx of colonoscopy History of back surgery Hx of cardiac cath Family History Father No problems noted. Mother Breast cancer Social History Alcohol intake: current Alcohol intake frequency: holidays/special occasions only Patient Tobacco Use Status: Never used Tobacco Review of Systems Const All systems reviewed & are unremarkable except as noted in HPI and below Denies weakness ENT Denies dizziness Card Details: Discomfort left lateral thorax with activity (lung pain per him) Denies chest pain, Denies chest pain at rest, Reports chest pain with activity (Mid chest discomfort at times with activity like stair climbing), Denies syncope, Denies rapid heart rate, Denies pedal edema, Denies edema, Denies leg edema, Denies lightheadedness, Denies palpitations, Denies dyspnea, Reports dyspnea on exertion and Denies orthopnea Resp Denies cough, Denies dyspnea and Reports dyspnea on exertion GI Denies hematochezia and Denies change in stool character Musc Denies abnormal gait, Denies muscle cramps, Denies muscle weakness, Denies numbness, Denies radiating pain into limb and Denies tingling Neuro Denies abnormal gait, Denies dizziness, Denies syncope, Denies numbness, Denies tingling and Denies weakness Endo Denies palpitations Physical Exam Vital Signs: Last Vital Signs Pulse 66 09/04/24 10:04 BP 130/68 09/04/24 10:04 BMI result Body Mass Index 29.2 Const General: cooperative, healthy appearing, comfortable and no acute distress Orientation/consciousness: patient oriented x3 Neck Neck: Yes normal visual inspection and Yes no JVD Carotids: normal carotid upstroke Chest Chest palpation & inspection: normal inspection of the chest Resp Effort & Inspection: normal respiratory effort Auscultation: clear to auscultation bilaterally, no rales, no rhonchi and no wheezes Cardio Jugular venous distension: no JVD Rate: regular rate Rhythm: regular rhythm Heart sounds: S1 normal heart sound present, S2 normal heart sound present, no murmurs and no rubs Neuro General: patient oriented x3 Extrem General: Yes normal to inspection, No no pedal edema and No calf tenderness Psych Appearance: grossly normal Mental Status: mental status grossly normal Speech and movement: Normal speech and movement present Office Procedures EKG Details: Today, read by me, normal sinus rhythm, right axis, nonspecific ST and T-wave abnormality inferior far lateral leads, rate 66, QTC 385 milliseconds [id number], Complete Assessment & Plan Assessment & Plan (1) Coronary artery arteriosclerosis: Comment: 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 History of chronic stable exertional angina which is controlled with antianginal therapy. On prior visits he was denying chest discomfort however today he does report having some mid chest discomfort if he over exerts. EKG today is showing sinus rhythm with nonspecific ST abnormalities in the inferior lateral leads. Echocardiogram done 10/14/2023 showing EF 61%, no evidence of regional wall motion abnormal ities. He is still on metoprolol and Ranexa. Will increase his Ranexa up to 1000 mg b.i.d.. Will further review with his primary arabic professor to determine if stress test is needed. Continue dual antianginals, aspirin, high-dose atorvastatin. Emergency care if ever needed for symptoms. Cardiology follow-up 3 mo to reassess symptoms and response to increased ranexa dose. (2) HTN (hypertension): Code(s): I10 - Essential (primary) hypertension Category: Medical Plan: Well controlled at this time. No med changes made (3) Hyperlipidemia: Code(s): E78.5 - Hyperlipidemia, unspecified Category: Medical Plan: [place] LDL goal less than 70 in patient with diabetes and CAD. Labs done 07/15/24 showed LDL 48. Continue atorvastatin (4) Diabetes mellitus: Code(s): E11.9 - Type 2 diabetes mellitus without complications Category: Medical Plan: Hemoglobin A1c goal less than 7. Managed by his PCP (5) Pleuritic pain: Code(s): R07.81 - Pleurodynia Category: Medical Plan: Noted on last visit. He has since undergone a chest x-ray and a CT scan of the chest which does show findings of chronic granulomatous lung disease, left base. On exam today he continues to have some rales in the left base. He tells me his condition has been stable any now follows with pulmonology. (6) Preop cardiovascular exam: Code(s): Z01.810 - Encounter for preprocedural cardiovascular examination Category: Medical Plan: Preop for colonoscopy in the near future. 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 He is reporting some stable angina. Ranexa dose being increased. Will check with his primary arabic professor regarding need for stress test prior to the procedure. Plan Time spent on chart review, documentation, interview and assessment Medications: New ranolazine ER dose increased 1,000 mg PO BID 90 days 180 tabs 1RF Discontinued ranolazine ER Discontinued Reason: Doctor's Order 500 mg PO BID 90 days 180 tabs 3RF Coding Level of Care Code Est Pt Level 4 (88450) Complex EM visit Add On G2211 Diagnoses Coronary artery arteriosclerosis I25.10 HTN (hypertension) I10 Hyperlipidemia E78.5 Diabetes mellitus E11.9 Pleuritic pain R07.81 Preop cardiovascular exam Z01.810 CPT Codes EKG - CPT: 81123-[id number], Complete ([id number]) Time Spent (min) 32
[2024-09-04 10:04] VITALS: BP 130/68; PULSE 66; BMI 29.2
== END 2024-09-04 10:45 | disposition home or self-care (01) ==
PROVIDERS: PCP Family Medicine; Visit Provider Nurse Practitioner Family
DX: I25.10 Atherosclerotic heart disease of native coronary artery without angina pectoris (principal); I10 Essential (primary) hypertension; E78.5 Hyperlipidemia, unspecified; E11.9 Type 2 diabetes mellitus without complications; R07.81 Pleurodynia; Z01.810 Encounter for preprocedural cardiovascular examination
CPT/HCPCS: 93010; 99214; G2211

== ENCOUNTER → 2024-09-04 09:43 | Outpatient (BNVA) | payer OTHER, SELFPAY | PROVIDERS: PCP Family Medicine; Visit Provider Nurse Practitioner Family | DX: Z01.810 Encounter for preprocedural cardiovascular examination (principal); I25.10 Atherosclerotic heart disease of native coronary artery without angina pectoris; I10 Essential (primary) hypertension; R07.81 Pleurodynia; E78.5 Hyperlipidemia, unspecified; E11.9 Type 2 diabetes mellitus without complications | CPT/HCPCS: 93005; 99212 ==

== ENCOUNTER 2025-02-22 08:47 | Outpatient (AMB) | payer OTHER, SELFPAY ==
[2025-02-22 08:49] VITALS: BP 106/62; PULSE 64; BMI 29.5
--- NOTE | 2025-02-22 08:49 | A.OFFVIS_ITS ---
Vital Signs 02/22/25 08:49 Height 5 ft 6 in Weight 182 lb 8.684 oz BMI 29.5 BP 106/62 Blood Pressure Location Lt brachial Position Sitting Pulse 64 Pulse Source Pulse Oximeter Intake Visit Reasons: 3m follow up Electrical And Instrument Technician Required: Yes Electrical And Instrument Technician Language: Market Research Assistant Name: voice delgado [id number] Allergies No Known Allergies (No Known Allergies*) Allergy (Verified 02/22/25 08:52) Medication List - Last Reconciled 02/22/25 by Maki Van FISH CONSERVATIONIST-C albuterol sulfate 90 mcg/actuation (Ventolin HFA) inhalation amitriptyline 10 mg PO BEDTIME aspirin 81 mg PO QAM bisacodyl (Dulcolax (bisacodyl)) 20 mg (4 x 5 mg) PO ONCE 1 day cetirizine 10 mg PO BEDTIME cholecalciferol (vitamin D3) 50 mcg PO DAILY dulaglutide (Trulicity) mg subcut QWEEK enalapril maleate 10 mg PO BID cejkivyqcwu-vhyhkyhih-bjkqcpxe 100-62.5-25 mcg (Trelegy Ellipta) 1 ea inhalation DAILY metoprolol succinate ER 100 mg PO QAM 90 days nitroglycerin 0.4 mg sublingual ONCE oxycodone 5 mg PO Q6H PRN polyethylene glycol 3350 (Miralax) 238 grams PO ONCE ranolazine ER 1,000 mg PO BID HPI HPI 3m follow up: Details: Chino is a 59-year-old male with past medical history of hypertension, hyperlipidemia, diabetes, mild obesity, CAD with CRYSTALLOGRAPHER of the RCA with collaterals who reported exertional chest discomfort on last visit and Ranexa dose increased. He now presents for follow up. Today he reports that he has some shortness of breath with over exertion but denies chest discomfort. He has been active with care of his grandchildren and he climbs 2 flights of stairs and tolerates well. He is currently pleased with how he is feeling. No shortness of breath at rest, PND, orthopnea or edema. No palpitations, lightheadedness, syncope, falls. 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 Taking all meds as directed. Certified automotive parts interpreter used. [facility] Medical History Exertional angina Diabetes mellitus Hyperlipidemia HTN (hypertension) Coronary artery arteriosclerosis Surgical History Hx of colonoscopy History of back surgery Hx of cardiac cath Family History Father No problems noted. Mother Breast cancer Social History Alcohol intake: current Alcohol intake frequency: holidays/special occasions only Patient Tobacco Use Status: Never used Tobacco Review of Systems Const All systems reviewed & are unremarkable except as noted in HPI and below ENT Denies dizziness Card Denies chest pain, Denies chest pain at rest, Denies chest pain with activity, Denies rapid heart rate, Denies pedal edema, Denies edema, Denies leg edema, Denies lightheadedness, Denies palpitations, Denies dyspnea, Reports dyspnea on exertion and Denies orthopnea Resp Denies cough, Denies dyspnea and Reports dyspnea on exertion GI Denies hematochezia and Denies change in stool character Musc Denies abnormal gait, Denies limited range of motion, Denies muscle cramps, Denies muscle weakness, Denies numbness, Denies radiating pain into limb, Denies stiffness and Denies tingling Neuro Denies abnormal gait, Denies dizziness, Denies numbness and Denies tingling Endo Denies palpitations Physical Exam Vital Signs: Last Vital Signs Pulse 64 02/22/25 08:49 BP 106/62 02/22/25 08:49 BMI result Body Mass Index 29.5 Const General: cooperative, healthy appearing, comfortable and no acute distress Orientation/consciousness: patient oriented x3 Neck Neck: Yes normal visual inspection and Yes no JVD Carotids: normal carotid upstroke Chest Chest palpation & inspection: normal inspection of the chest Resp Effort & Inspection: normal respiratory effort Auscultation: clear to auscultation bilaterally, no rales, no rhonchi and no wheezes Cardio Jugular venous distension: no JVD Rate: regular rate Rhythm: regular rhythm Heart sounds: S1 normal heart sound present, S2 normal heart sound present, no murmurs and no rubs Neuro General: patient oriented x3 Extrem General: Yes normal to inspection, No no pedal edema and No calf tenderness Psych Appearance: grossly normal Mental Status: mental status grossly normal Speech and movement: Normal speech and movement present Assessment & Plan Assessment & Plan (1) Coronary artery arteriosclerosis: Comment: 09/24/2012 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 History of chronic stable exertional angina. On last visit his Ranexa was increased to 1000 mg b.i.d. for reports of increasing symptoms. At this time he only has some shortness of breath with exertion, no longer reporting chest discomfort. EKG last visit showing sinus rhythm with nonspecific ST abnormalities in the inferior lateral leads. Echocardiogram done 10/14/2023 showing EF 61%, no evidence of regional wall motion abnormalities. Continue dual antianginals with metoprolol and Ranexa. Continue aspirin indefinitely, high-dose atorvastatin with ideal LDL goal less than 70. Emergency care if ever needed for symptoms. Cardiology follow-up 6 mo, sooner if needed. (2) HTN (hypertension): Code(s): I10 - Essential (primary) hypertension Category: Medical Plan: Blood pressure goal less than 130/80. Well controlled at this time. Labs 07/15/2024 showed potassium 4.7, creatinine 0.92. Continue metoprolol and enalapril. (3) Hyperlipidemia: Code(s): E78.5 - Hyperlipidemia, unspecified Category: Medical Plan: [place] LDL goal less than 70 in patient with diabetes and CAD. Labs done 07/15/24 showed LDL 48. Continue atorvastatin - not on his med list today for unknown reason, will reorder. (4) Diabetes mellitus: Code(s): E11.9 - Type 2 diabetes mellitus without complications Category: Medical Plan: Hemoglobin A1c goal less than 7. Managed by his PCP (5) Pleuritic pain: Code(s): R07.81 - Pleurodynia Category: Medical Plan: Chronic rales in left lung base. Has cause pleuritic pain in the past. He has undergone a chest x-ray and a CT scan of the chest which does show findings of chronic granulomatous lung disease, left base. He follows with pulmonology. Plan I discussed with the patient the importance of continuing his current medications and reintroducing atorvastatin to manage his cholesterol levels. We reviewed the use of nitroglycerin for chest discomfort and the need to seek emergency care if symptoms do not resolve. Follow-up was scheduled for six months, with instructions to return sooner if symptoms worsen. Medications: New aspirin 81 mg PO QAM 90 tabs 3RF Refilled atorvastatin Cholesterol lowering medication 80 mg PO BEDTIME 90 tabs 3RF Patient Instructions: - Continue taking Ranexa, metoprolol, and aspirin as prescribed. - Start taking atorvastatin again; check with pharmacy for availability. - Use nitroglycerin if you experience chest discomfort. - Go to the ER if chest discomfort does not go away. - Follow up in six months or sooner if symptoms get worse. Patient was informed and verbally consented to the use of an ambient scribe for clinic note documentation during this visit. Visit time spent on chart review, interview, assessment, orders, documentation. Coding Level of Care Code Est Pt Level 4 (61407) Complex EM visit Add On G2211 Diagnoses Coronary artery arteriosclerosis I25.10 HTN (hypertension) I10 Hyperlipidemia E78.5 Diabetes mellitus E11.9 Pleuritic pain R07.81 Time Spent (min) 28
--- OUTSIDE RECORDS SUMMARY | 2025-02-22 09:13 | XMS_ITS | Encounter Summary ---
Author Organization [employer] Address [address] [place] [address] Care Team Providers Care Hospice Clinical Manager Name Role Phone Shira Miramontes DO Primary Care Provider Allison Johns PharmD Unavailable [phone] Reason for Visit * Reason Comments Med Refill Encounter Details Date Type Department Care Team ([facility] st Contact Info) Description 02/24/2024 Refill [facility] [address] [place] [address] Shira Miramontes DO [address] [place] [address] Insomnia, unspecified type Social History Tobacco Use Types Packs/Day Years Used Date Smoking Tobacco: Former Cigarettes Passive Smoke Exposure: Past Smokeless Tobacco: Never Alcohol Use Standard Drinks/Week Comments Never 0 (1 standard drink = 0.6 oz pur e alcohol) Depression Answer Date Recorded Patient Health Questionnaire-9 Score 1 02/12/2024 Patient Health Questionnaire-9 Score 1 02/12/2024 Last PHQ-9: Questionnaire Data Not on file 0 02/12/2024 Housing Stability Answer Date Recorded What is your housing situation today? I have edie borrero 02/12/[address] you li ve. Do you have problems with any of the following? None of the above 02/12/2024 Food Insecurity Answer Date Recorded Within the past 12 months, y ou worried that your food would run out before you got money to buy more: Never True 02/12/2024 Within the past 12 months,th e food you bought just didn't last and you didn't have enough money to get more: Never True 08/2024 Transportation Answer Date Recorded In the past 12 months, has l ack of transportation kept you from medical appts, meetings, work or from getting things needed for daily living? No 02/12/2024 Utilities Answer Date Recorded In the past 12 months, has t he electric, gas, oil or water company threatened to shut off services in your home? No 02/12/2024 Depression Answer Date Recorded Patient Health Questionnaire-2 Score 0 02/12/2024 Sex and Gender Information Value Date Recorded Sex Assigned at Male 07/02/2022 10:22 AM EDT Legal Sex Male 10:22 AM EDT Gender Identity Male 07/02/2022 10:22 AM EDT Sexual Orientation Straight 07/02/2022 10 :22 AM EDT documented as of this encounter Plan of Treatment Upcoming Encounters Date Type Department Care Team (Late st Contact Info) Description 03/09/2025 9:45 AM EDT Office Visit [facility] [address] [place] [address] documented as of this encounter Goals Goal Patient Goal Type Associated Problems Recent Progress Patient-Stated? Author Hemoglobin A1c < 7 Result Component 6.2(07/15/2024 8:33 AM EST) No Jim May PharmD documented as of this encounter Visit Diagnoses Diagnosis Insomnia, unspecified type documented in this encounter Additional Health Concerns Assessment Noted Time PHQ-9 Depression Total Score: 1 02/12/20 24 9:59 AM EDT documented as of this encounter Care Teams Hospice Clinical Manager Relationship Specialty Start Date End Date Shira Miramontes DO [address] [place] [id number] PCP - General Family Medicine 01/30/12 Allison Johns PharmD [address] [place] [id number] Pharmacist Internal Medicine 04/19/23 01/11/25 documented as of this encounter
== END 2025-02-22 09:13 | disposition home or self-care (01) ==
LOC: HO.HCS 08:48
PROVIDERS: PCP Family Medicine; Visit Provider Nurse Practitioner Family
DX: I25.10 Atherosclerotic heart disease of native coronary artery without angina pectoris (principal); I10 Essential (primary) hypertension; E78.5 Hyperlipidemia, unspecified; E11.9 Type 2 diabetes mellitus without complications; R07.81 Pleurodynia
CPT/HCPCS: 99214; G2211

== ENCOUNTER → 2025-02-22 08:47 | Outpatient (BNVA) | payer OTHER, SELFPAY | PROVIDERS: PCP Family Medicine; Visit Provider Nurse Practitioner Family | DX: I10 Essential (primary) hypertension (principal); E78.5 Hyperlipidemia, unspecified; E11.9 Type 2 diabetes mellitus without complications; I25.118 Atherosclerotic heart disease of native coronary artery with other forms of angina pectoris; R07.81 Pleurodynia | CPT/HCPCS: 99212 ==

== ENCOUNTER 2025-05-11 11:30 | Outpatient (REF) | payer OTHER, SELFPAY ==
--- NOTE | ~2025-05-11 | XR_ITS ---
EXAMINATION: XR HAND 3 OR MORE VIEWS LEFT HISTORY: pain at base of 5th digit COMPARISON: There are no prior studies available for comparison. FINDINGS: Three views of the left hand are submitted. Osseous mineralization is normal. There is an old healed fracture deformity of the 5th metacarpal neck. No acute fracture or dislocation is seen. The joint spaces are preserved. The soft tissues are unremarkable. XR/XR hand LT min 3V IMPRESSION: Old healed fracture deformity of the 5th metacarpal neck. Otherwise unremarkable examination of the left hand. Electronically signed by: Mustapha Plummer MD 05/11/2025 01:10 PM EDT
--- OUTSIDE RECORDS SUMMARY | 2025-05-11 09:45 | XMS_ITS | Encounter Summary ---
Author Organization [employer] Address [address] [facility] [address] [place] [address] Care Team Providers Care Cripple Worker Name Role Phone Shira Miramontes DO Primary Care Provider + [phone] Reason for Referral * Imaging (Routine) - Pending Review Specialty Diagnoses / Procedures Referred By Contac t Referred To Contact Radiology Diagnoses Chronic low back pain, unspecified back pain laterality, unspecified whether sciatica present Procedures CT Lumber Spine w/ Contrast Shira Miramontes DO [address] [place] [address] Phone: tel: fax: [address] Phone: tel: fax: Referral ID Status Reason Start Date Expiration Date V isits Requested Visits Authorized [id number] Pending Review 05/11/2025 05/11/2026 1 1 * Consultation (Urgent) - Pending Review Specialty Diagnoses / Procedures Referred By Contac t Referred To Contact Orthopaedic Surgery Diagnoses Trigger little finger of left hand Shira Miramontes DO [address] [place] [address] Phone: tel: fax: Referral ID Status Reason Start Date Expiration Date Visits Requested Visits Authorized [id number] Pending Review Specialty Services Required 05/11/2025 05/11/2026 1 1 Encounter Details Date Type Department Care Team (Late st Contact Info) Description 05/11/2025 9:45 AM EDT Office Visit [facility] [address] [place] [address] Shira Miramontes DO [address] [place] [address] Type 2 diabetes mellitus without complication, without long-term current use of insulin (CMS/HCC) (Primary Dx); Essential hypertension; Other hyperlipidemia; Major depression, recurrent, chronic (CMS/HCC); Coronary artery disease involving [place] coronary artery of [place] heart, unspecified whether angina present; Chronic obstructive pulmonary disease, unspecified COPD type (CMS/HCC); Obstructive sleep apnea; Chronic low back pain, unspecified back pain laterality, unspecified whether sciatica present; Lung nodule; Psoriasis; Trigger little finger of left hand; Healthcare maintenance; Dietary counseling; Exercise counseling Social History Tobacco Use Types Packs/Day Years Used Date Smoking Tobacco: Former Cigarettes Passive Smoke Exposure: Past Smokeless Tobacco: Never Alcohol Use Standard Drinks/Week Comments Never 0 (1 standard drink = 0.6 oz pur e alcohol) Alcohol Answer Date Recorded Frequency of Alcohol Consumption Not on file 07/10/2024 Average Number of Drinks Not on file 024 Frequency of Binge Drinking Not on file 04/2024 Score 0 07/10/2024 Depression Answer Date Recorded Patient Health Questionnaire-9 Score 10 05/11/2025 Patient Health Questionnaire-9 Score 10 05/11/2025 Last PHQ-9: Questionnaire Data Not on file 0 05/11/2025 Housing Stability Answer Date Recorded What is your housing situation today? I have edie borrero 04/30/[address] you li ve. Do you have problems with any of the following? None of the above 04/30/2025 Food Insecurity Answer Date Recorded Within the past 12 months, y ou worried that your food would run out before you got money to buy more: Never True 04/30/2025 Within the past 12 months,th e food you bought just didn't last and you didn't have enough money to get more: Never True Transportation Answer Date Recorded In the past 12 months, has l ack of transportation kept you from medical appts, meetings, work or from getting things needed for daily living? No 04/30/2025 Utilities Answer Date Recorded In the past 12 months, has t he electric, gas, oil or water company threatened to shut off services in your home? No 04/30/2025 Depression Answer Date Recorded Patient Health Questionnaire-2 Score 4 05/11/2025 Internet Access Answer Date Recorded Internet Access Q1 Yes 04/30/2025 Internet Access Q2 Not on file 04/30/2025 Sex and Gender Information Value Date Recorded Sex Assigned at Male 07/02/2022 10:22 AM EDT Legal Sex Male 10:22 AM EDT Gender Identity Male 07/02/2022 10:22 AM EDT Sexual Orientation Straight 07/02/2022 10 :22 AM EDT documented as of this encounter Last Filed Vital Signs Vital Sign Reading Time Taken Comments Blood Pressure 124/70 05/11/2025 10:03 AM EDT Pulse 65 05/11/2025 10:03 AM EDT Temperature 36.8 C (98.3 F) 05/11/2025 10:03 AM EDT Respiratory Rate 19 05/11/2025 10:03 AM EDT Oxygen Saturation 98% 05/11/2025 10:03 AM EDT Inhaled Oxygen Concentration - - Weight 84.4 kg (186 lb) 05/11/2025 10:03 AM EDT Height 165.1 cm (5' 5 ) 05/11/2025 10:03 AM EDT Body Mass Index 30.95 05/11/2025 10:03 AM EDT documented in this encounter Functional Status * Over the past 2 weeks, how often have you been bothered by any of the following problems? Question Answer Date of Assessment Author Patient Health Questionnaire -2 Score 4 05/11/2025 11:25 AM EDT Divina Villalta [place] * Little interest or pleasure in doing things Answer Date of Assessment Author More than half the days 05/11/2025 11:25 AM EDT Divina Villalta [place] * Feeling down, depressed, or hopeless Answer Date of Assessment Author More than half the days 05/11/2025 11:25 AM EDT Divina Villalta [place] * Trouble falling or staying asleep, or sleeping too much Answer Date of Assessment Author Several days 05/11/2025 11:25 AM Divina Vee [place] * Feeling tired or having little energy Answer Date of Assessment Author Several days 05/11/2025 11:25 AM Divina Vee [place] * Poor appetite or overeating Answer Date of Assessment Author Several days 05/11/2025 11:25 AM Divina Vee [place] * Feeling bad about yourself - or that you are a failure or have let yourself or your family down Answer Date of Assessment Author More than half the days 05/11/2025 11:25 AM Divina Vee [place] * Trouble concentrating on things, such as reading the newspaper or watching television Answer Date of Assessment Author Several days 05/11/2025 11:25 AM Divina Vee [place] * Moving or speaking so slowly that other people could have noticed? Or the opposite - being so fidgety or restless that you have been moving around a lot more than usual. Answer Date of Assessment Author Not at all 05/11/2025 11:25 AM Divina Vee [place] * Thoughts that you would be better off or hurting yourself in some way Answer Date of Assessment Author Not at all 05/11/2025 11:25 AM Divina Vee [place] * Patient Health Questionnaire-9 Score Answer Date of Assessment Author 10 05/11/2025 11:25 AM Divina Vee [place] * How difficult have these problems made it for you to do your work, take care of things at home, or get along with other people? Answer Date of Assessment Author Very difficult 05/11/2025 11:25 AM Divina Vee [place] * Over the last 2 weeks, how often have you been bothered by any of the following problems? Question Answer Date of Assessment Author Feeling nervous, anxious, or on edge 3 05/11/2025 11:25 AM Divina Vee [place] Not being able to stop or co ntrol worrying 2 05/11/2025 11:25 AM Divina Vee [place] Worrying too much about diff erent things 2 05/11/2025 11:25 AM EDT Divina Villalta [place] Trouble relaxing 1 05/11/2025 11:25 AM EDT Divina Villalta [place] Being so restless that it is hard to sit still 1 05/11/2025 11:25 AM EDT Divina Villalta MA Becoming easily annoyed or irritable 0 05/11/2025 11:25 AM EDT Divina Villalta [place] Feeling afraid as if somethi ng awful might happen 0 05/11/2025 11:25 AM EDT Divina Villalta MA KIMBERLEE-7 Total Score 9 05/11/2025 11:25 AM EDT Divina Villalta MA documented as of this encounter Plan of Treatment Upcoming Encounters Date Type Department Care Team (Late st Contact Info) Description 05/25/2025 11:00 AM EDT Office Visit [facility] [address] [place] [address] Scheduled Orders Name Type Priority Associated Diagnoses Orde r Schedule T4, Free Lab Routine Type 2 diabetes mellitus without complication, without long-term current use of insulin (CMS/HCC) Essential hypertension Other hyperlipidemia Major depression, recurrent, chronic (CMS/HCC) Coronary artery disease involving [place] coronary artery of [place] heart, unspecified whether angina present Chronic obstructive pulmonary disease, unspecified COPD type (CMS/HCC) Obstructive sleep apnea Chronic low back pain, unspecified back pain laterality, unspecified whether sciatica present Lung nodule Psoriasis Trigger little finger of left hand Healthcare maintenance Dietary counseling Exercise counseling Expected: 05/11/2025 (Approximate), Expires: 05/11/2026 Vitamin D, 25-Hydroxy, Total, Immunoassay Lab Routine Type 2 diabetes mellitus without complication, without long-term current use of insulin (CMS/HCC) Essential hypertension Other hyperlipidemia Major depression, recurrent, chronic (CMS/HCC) Coronary artery disease involving [place] coronary artery of [place] heart, unspecified whether angina present Chronic obstructive pulmonary disease, unspecified COPD type (CMS/HCC) Obstructive sleep apnea Chronic low back pain, unspecified back pain laterality, unspecified whether sciatica present Lung nodule Psoriasis Trigger little finger of left hand Healthcare maintenance Dietary counseling Exercise counseling Expected: 05/11/2025 (Approximate), Expires: 05/11/2026 Lipid Panel, Standard Lab Routine Type 2 diabetes mellitus without complication, without long-term current use of insulin (CMS/HCC) Essential hypertension Other hyperlipidemia Major depression, recurrent, chronic (CMS/HCC) Coronary artery disease involving [place] coronary artery of [place] heart, unspecified whether angina present Chronic obstructive pulmonary disease, unspecified COPD type (CMS/HCC) Obstructive sleep apnea Chronic low back pain, unspecified back pain laterality, unspecified whether sciatica present Lung nodule Psoriasis Trigger little finger of left hand Healthcare maintenance Dietary counseling Exercise counseling Expected: 05/11/2025 (Approximate), Expires: 05/11/2026 TSH Lab Routine Type 2 diabetes mellitus without complication, without long-term current use of insulin (CMS/HCC) Essential hypertension Other hyperlipidemia Major depression, recurrent, chronic (CMS/HCC) Coronary artery disease involving [place] coronary artery of [place] heart, unspecified whether angina present Chronic obstructive pulmonary disease, unspecified COPD type (CMS/HCC) Obstructive sleep apnea Chronic low back pain, unspecified back pain laterality, unspecified whether sciatica present Lung nodule Psoriasis Trigger little finger of left hand Healthcare maintenance Dietary counseling Exercise counseling Expected: 05/11/2025 (Approximate), Expires: 05/11/2026 Hepatic Function Panel Lab Routine Type 2 diabetes mellitus without complication, without long-term current use of insulin (CMS/HCC) Essential hypertension Other hyperlipidemia Major depression, recurrent, chronic (CMS/HCC) Coronary artery disease involving [place] coronary artery of [place] heart, unspecified whether angina present Chronic obstructive pulmonary disease, unspecified COPD type (CMS/HCC) Obstructive sleep apnea Chronic low back pain, unspecified back pain laterality, unspecified whether sciatica present Lung nodule Psoriasis Trigger little finger of left hand Healthcare maintenance Dietary counseling Exercise counseling Expected: 05/11/2025 (Approximate), Expires: 05/11/2026 Hemoglobin A1c Lab Routine Type 2 diabetes mellitus without complication, without long-term current use of insulin (CMS/HCC) Essential hypertension Other hyperlipidemia Major depression, recurrent, chronic (CMS/HCC) Coronary artery disease involving [place] coronary artery of [place] heart, unspecified whether angina present Chronic obstructive pulmonary disease, unspecified COPD type (CMS/HCC) Obstructive sleep apnea Chronic low back pain, unspecified back pain laterality, unspecified whether sciatica present Lung nodule Psoriasis Trigger little finger of left hand Healthcare maintenance Dietary counseling Exercise counseling Expected: 05/11/2025 (Approximate), Expires: 05/11/2026 Basic Metabolic Panel Lab Routine Type 2 diabetes mellitus without complication, without long-term current use of insulin (CMS/HCC) Essential hypertension Other hyperlipidemia Major depression, recurrent, chronic (CMS/HCC) Coronary artery disease involving [place] coronary artery of [place] heart, unspecified whether angina present Chronic obstructive pulmonary disease, unspecified COPD type (CMS/HCC) Obstructive sleep apnea Chronic low back pain, unspecified back pain laterality, unspecified whether sciatica present Lung nodule Psoriasis Trigger little finger of left hand Healthcare maintenance Dietary counseling Exercise counseling Expected: 05/11/2025 (Approximate), Expires: 05/11/2026 CBC Lab Routine Type 2 diabetes mellitus without complication, without long-term current use of insulin (CMS/HCC) Essential hypertension Other hyperlipidemia Major depression, recurrent, chronic (CMS/HCC) Coronary artery disease involving [place] coronary artery of [place] heart, unspecified whether angina present Chronic obstructive pulmonary disease, unspecified COPD type (CMS/HCC) Obstructive sleep apnea Chronic low back pain, unspecified back pain laterality, unspecified whether sciatica present Lung nodule Psoriasis Trigger little finger of left hand Healthcare maintenance Dietary counseling Exercise counseling Expected: 05/11/2025, Expires: 05/11/2026 Albumin, Random Urine W/Creatinine Lab Routine Type 2 diabetes mellitus without complication, without long-term current use of insulin (CMS/HCC) Essential hypertension Other hyperlipidemia Major depression, recurrent, chronic (CMS/HCC) Coronary artery disease involving [place] coronary artery of [place] heart, unspecified whether angina present Chronic obstructive pulmonary disease, unspecified COPD type (CMS/HCC) Obstructive sleep apnea Chronic low back pain, unspecified back pain laterality, unspecified whether sciatica present Lung nodule Psoriasis Trigger little finger of left hand Healthcare maintenance Dietary counseling Exercise counseling Expected: 05/11/2025 (Approximate), Expires: 05/11/2026 Hepatitis B surface antigen, EIA Lab Routine Type 2 diabetes mellitus without complication, without long-term current use of insulin (CMS/HCC) Essential hypertension Other hyperlipidemia Major depression, recurrent, chronic (CMS/HCC) Coronary artery disease involving [place] coronary artery of [place] heart, unspecified whether angina present Chronic obstructive pulmonary disease, unspecified COPD type (CMS/HCC) Obstructive sleep apnea Chronic low back pain, unspecified back pain laterality, unspecified whether sciatica present Lung nodule Psoriasis Trigger little finger of left hand Healthcare maintenance Dietary counseling Exercise counseling Expected: 05/11/2025 (Approximate), Expires: 05/11/2026 Chlamydia/N. Gonorrhoeae RNA, TMA, Urogenitial Microbiology Routine Type 2 diabetes mellitus without complication, without long-term current use of insulin (CMS/HCC) Essential hypertension Other hyperlipidemia Major depression, recurrent, chronic (CMS/HCC) Coronary artery disease involving [place] coronary artery of [place] heart, unspecified whether angina present Chronic obstructive pulmonary disease, unspecified COPD type (CMS/HCC) Obstructive sleep apnea Chronic low back pain, unspecified back pain laterality, unspecified whether sciatica present Lung nodule Psoriasis Trigger little finger of left hand Healthcare maintenance Dietary counseling Exercise counseling Ordered: 05/11/2025 HIV-1/2 Antigen and Antibodies, Fourth Generation, with Reflexes Lab Routine Type 2 diabetes mellitus without complication, without long-term current use of insulin (CMS/HCC) Essential hypertension Other hyperlipidemia Major depression, recurrent, chronic (CMS/HCC) Coronary artery disease involving [place] coronary artery of [place] heart, unspecified whether angina present Chronic obstructive pulmonary disease, unspecified COPD type (CMS/HCC) Obstructive sleep apnea Chronic low back pain, unspecified back pain laterality, unspecified whether sciatica present Lung nodule Psoriasis Trigger little finger of left hand Healthcare maintenance Dietary counseling Exercise counseling Expected: 05/11/2025 (Approximate), Expires: 05/11/2026 Hepatitis C Antibody with Reflex to HCV, RNA, Quantitative, Real-Time PCR Lab Routine Type 2 diabetes mellitus without complication, without long-term current use of insulin (CMS/HCC) Essential hypertension Other hyperlipidemia Major depression, recurrent, chronic (CMS/HCC) Coronary artery disease involving [place] coronary artery of [place] heart, unspecified whether angina present Chronic obstructive pulmonary disease, unspecified COPD type (CMS/HCC) Obstructive sleep apnea Chronic low back pain, unspecified back pain laterality, unspecified whether sciatica present Lung nodule Psoriasis Trigger little finger of left hand Healthcare maintenance Dietary counseling Exercise counseling Expected: 05/11/2025, Expires: 05/11/2026 RPR (Monitor) with Reflex to Titer Lab Routine Type 2 diabetes mellitus without complication, without long-term current use of insulin (CMS/HCC) Essential hypertension Other hyperlipidemia Major depression, recurrent, chronic (CMS/HCC) Coronary artery disease involving [place] coronary artery of [place] heart, unspecified whether angina present Chronic obstructive pulmonary disease, unspecified COPD type (CMS/HCC) Obstructive sleep apnea Chronic low back pain, unspecified back pain laterality, unspecified whether sciatica present Lung nodule Psoriasis Trigger little finger of left hand Healthcare maintenance Dietary counseling Exercise counseling Expected: 05/11/2025, Expires: 05/11/2026 Hepatitis B Surface Antibody, Qualitative Lab Routine Type 2 diabetes mellitus without complication, without long-term current use of insulin (CMS/HCC) Essential hypertension Other hyperlipidemia Major depression, recurrent, chronic (CMS/HCC) Coronary artery disease involving [place] coronary artery of [place] heart, unspecified whether angina present Chronic obstructive pulmonary disease, unspecified COPD type (CMS/HCC) Obstructive sleep apnea Chronic low back pain, unspecified back pain laterality, unspecified whether sciatica present Lung nodule Psoriasis Trigger little finger of left hand Healthcare maintenance Dietary counseling Exercise counseling Expected: 05/11/2025 (Approximate), Expires: 05/11/2026 CT Lumber Spine w/ Contrast Imaging Routine Chronic low back pain, unspecified back pain laterality, unspecified whether sciatica present Expected: 05/11/2025, Expires: 05/11/2026 Scheduled Referrals Name Type Priority Associated Diagnoses Order Schedule Referral to Orthopaedic Surgery Outpatient Referral Urgent Trigger little finger of left hand Expected: 05/11/2025 (Approximate), Expires: 05/11/2026 documented as of this encounter Goals Goal Patient Goal Type Associated Problems Recent Progress Patient-Stated? Author Hemoglobin A1c < 7 Result Component 6.3(05/11/2025 10:07 AM EDT) No Jim May, PharmD documented as of this encounter Procedures Procedure Name Priority Date/Time Associated Diagnosis Comments XR HAND 3+ VIEWS LEFT Routine 05/11/2025 12:23 PM EDT Trigger little finger of left hand POCT GLYCATED HEMOGLOBIN, TOTAL Routine 05/11/2025 10:07 AM EDT Type 2 diabetes mellitus without complication, without long-term current use of insulin (CMS/HCC) POCT GLUCOSE Routine 05/11/2025 10:05 AM EDT Type 2 diabetes mellitus without complication, without long-term current use of insulin (CMS/HCC) documented in this encounter Results * XR Hand 3+ Views Left (05/11/2025 12:23 PM EDT) Anatomical Region Laterality Modality Upper Extremities, Hand Left Radiogra phic Imaging 05/11/2025 12:2 3 PM EDT Narrative 05/11/2025 1:12 PM EDT [address] [address] XRay Report Signed Patient: Chino Bo MR#: [id number] : 1965 Acct:[id number] Age/Sex: 60 / M ADM Date: 05/11/25 Loc: HO.HHCX Attending Dr: Shira Miramontes DO Ordering Physician: Shira Miramontes DO Date of Service: 05/11/25 Procedure(s): XR hand LT min 3V Accession Number(s): [id number] cc: Shira Miramontes DO Reason for Exam: pain at base of 5th digit EXAMINATION: XR HAND 3 OR MORE VIEWS LEFT HISTORY: pain at base of 5th digit COMPARISON: There are no prior studies available for comparison. FINDINGS: Three views of the left hand are submitted. Osseous mineralization is normal. There is an old healed fracture deformity of the 5th metacarpal neck. No acute fracture or dislocation is seen. The joint spaces are preserved. The soft tissues are unremarkable. XR/XR hand LT min 3V IMPRESSION: Old healed fracture deformity of the 5th metacarpal neck. Otherwise unremarkable examination of the left hand. 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 FINDINGS: Three views of the left hand are submitted. Osseous mineralization is normal. There is an old healed fracture deformity of the 5th metacarpal neck. No acute fracture or dislocation is seen. The joint spaces are preserved. The soft tissues are unremarkable. XR/XR hand LT min 3V IMPRESSION: Old healed fracture deformity of the 5th metacarpal neck. Otherwise unremarkable examination of the left hand. Electronically signed by: Mustapha Plummer MD 05/11/2025 01:10 PM EDT RP Dictated By: Mustapha Plummer MD Signed By: <Electronically signed by Mustapha Plummer MD in [place]> 05/11/25 1310 DD/ 1223 TD/TT: 05/11/25 1230 Occupancy Specialist: Shira Miramontes DO IMG XR PROCEDURES Final Resu lt * (ABNORMAL) POCT Hgb A1c (05/11/2025 10:07 AM EDT) Hemoglobin A1C 6.3(A) 4.0 - 5.7 % QC Media Lot # [id number] Lot# Expiration Date Blood 05/11/2025 10:0 7 AM EDT Shira Miramontes DO POINT OF CARE TEST ENTER/ROSARIO T ORDERABLES Final Result * (ABNORMAL) POCT Glucose (05/11/2025 10:05 AM EDT) Glucose Blood, POC 88(A) 60 - 200 mg/dL QC Media Lot # [id number] Lot# Expiration Date [id number] Blood Capillary blood specimen / Unknown 05/11/2025 10:05 AM EDT Shira Miramontes DO POINT OF CARE TEST ENTER/ROSARIO T ORDERABLES Final Result documented in this encounter Visit Diagnoses Diagnosis Type 2 diabetes mellitus without complication, without long-term current use of insulin (CMS/[facility])- Primary Essential hypertension Unspecified essential hypertension Other hyperlipidemia Major depression, recurrent, chronic (CMS/HCC) Coronary artery disease involving [place] coronary artery of [place] heart, unspecified whether angina present Chronic obstructive pulmonary disease, unspecified COPD type (CMS/HCC) Obstructive sleep apnea Obstructive sleep apnea (adult) (pediatric) Chronic low back pain, unspecified back pain laterality, unspecified whether sciatica present Lung nodule Other diseases of lung, not elsewhere classified Psoriasis Other psoriasis Trigger little finger of left hand Healthcare maintenance Dietary counseling Dietary surveillance and counseling Exercise counseling documented in this encounter Additional Health Concerns Assessment Noted Time PHQ-9 Depression Total Score: 10 025 11:25 AM EDT documented as of this encounter Care Teams Cripple Worker Relationship Specialty Start Date End Date Shira Miramontes DO [address] [place] [address] PCP - General Family Medicine 01/30/12 documented as of this encounter
--- OUTSIDE RECORDS SUMMARY | 2025-05-11 14:00 | XMS_ITS | Encounter Summary ---
Author Organization [employer] Address [address] [facility] 7t [place] [address] Care Team Providers Care Conservation Science Teacher Name Role Phone Shira Miramontes DO Primary Care Provider + [phone] Reason for Visit * Reason Onset Date Comments Chart Prep 05/06/2025 Encounter Details Date Type Department Care Team ([facility] st Contact Info) Description 05/06/2025 Telephone [facility] [address] [place], [place] [phone] Shira Miramontes DO [address] [place] [address] Chart Prep Social History Tobacco Use Types Packs/Day Years [...] Recorded Patient Health Questionnaire-2 Score 0 02/12/2024 Internet Access Answer Date Recorded Internet Access Q1 Yes 04/30/2025 Internet Access Q2 Not on file 04/30/2025 Sex and Gender Information Value Date Recorded Sex Assigned at Male 07/02/2022 10:22 AM EDT Legal Sex Male 10:22 AM EDT Gender Identity Male 07/02/2022 10:22 AM EDT Sexual Orientation Straight 07/02/2022 10 :22 AM EDT documented as of this encounter Miscellaneous Notes * Telephone Encounter - Divina Villalta MA - 05/06/2025 7:53 AM EDT Chart Prep Labs: done Images: not done Referrals: appointment pending Vaccines due: Flu Screenings: colonoscopy, eye exam, and foot exam Overdue care gaps: A1c, Glucose, SBIRT, PHQ-9, KIMBERLEE-7, Oral health screening, and Disability screen documented in this encounter Plan of Treatment Upcoming Encounters Date Type Department Care Team (Late st Contact Info) Description 05/25/2025 11:00 AM EDT Office Visit [facility] [address] [place], [place] [id number] documented as of this encounter Goals Goal Patient Goal Type Associated Problems Recent Progress Patient-Stated? Author Hemoglobin A1c < 7 Result Component 6.3(05/11/2025 10:07 AM EDT) No DellogJim ellsworth, PharmD documented as of this encounter Visit Diagnoses Not on filedocumented in this encounter Additional Health Concerns Assessment Noted Time PHQ-9 Depression Total Score: 1 06/12/20 24 9:59 AM EDT documented as of this encounter Care Teams Conservation Science Teacher Relationship Specialty Start Date End Date Shira Miramontes DO [address] [place] [address] PCP - General Family Medicine 01/30/12 documented as of this encounter
--- OUTSIDE RECORDS SUMMARY | 2025-05-11 14:00 | XMS_ITS | Clinical Summary ---
Author Organization [facility] Address [address] [place] [address] Care Team Providers Care Acid Patroller Name Role Phone Shira Miramontes DO Primary Care Provider Social History Tobacco Use Types Packs/Day Years Used Date Smoking Tobacco: Never Assessed Sex and Gender Information Value Date Recorded Sex Assigned at Not on file Gender Identity Not on file Sexual Orientation Not on file Plan of Treatment Health Maintenance Due Date Last Done Comments Hepatitis C Screening 1965 COVID-19 Vaccine (#1) 1963 Depression Screening 1975 Preventative Health Evaluation 1981 Colon Cancer Screening (Colonoscopy) 2008 Shingrix-Zoster Vaccine (1 of 2) 2013 DTap / Tdap / Td (2 - Td or Tdap) 12/31/2021 012 Influenza Vaccine (#1) 2025 06/02/2016 RSV Adult > 60+ Yrs or Pregn ant (1 - 1-dose 75+ series) 2038 Pneumococcal Vaccine Aged Out 01/31/2015 No long er eligible based on patient's age to complete this topic Hepatitis B Vaccines Aged Out No long er eligible based on patient's age to complete this topic RSV Ped < 20 months Aged Out No longe r eligible based on patient's age to complete this topic Care Teams Acid Patroller Relationship Specialty Start Date End Date Shira Miramontes DO [address] [place] [address] PCP - General Family Medicine 05/10/17
--- OUTSIDE RECORDS SUMMARY | 2025-05-11 14:00 | XMS_ITS | Encounter Summary ---
Author Organization [facility] Address [address] [place] [address] Care Team Providers Care Work Checker Name Role Phone Fe Shira Primary Care Provider Unava ilable Reason for Visit * Reason Comments E-prescribe Rx Request Encounter Details Date Type Department Care Team Description 07/13/2020 Refill Pulmonology - [place] [address] [facility] [address] [place] [address] Joselito Yoo PA-C [address] [facility] [address] [place] [address] E-prescribe Rx Request Social History Tobacco Use Types Packs/Day Years Used Date Smoking Tobacco: Former Cigarettes 1 30 Smokeless Tobacco: Never Alcohol Use Standard Drinks/Week Comments No 0 (1 standard drink = 0.6 oz pur e alcohol) Sex Assigned at Date Recorded Not on file Job Start Date Occupation Industry Not on file Not on file Not on file documented as of this encounter Miscellaneous Notes * Telephone Encounter - Cynthia Veliz - 07/27/2020 1:58 PM EST Patient would like script to be: E-PRESCRIBED/FAXED TO PHARMACY WHEN WAS THE PATIENT'S LAST APPOINTMENT WITH THE PRESCRIBING PROVIDER? 12/18/19 Does patient have an upcoming appointment? No-[facility] to [facility]ill request. Appt due 06/2020 (THE MEDICATION REQUESTED IS ON THE MED LIST ABOVE) All of the medications requested were on the CURRENT MEDS list Did you check the Pharmacy information above?: YES Patient wants: 90 -day supply Is this a mail order prescription request ? NO Patients current insurance carrier is: Payor: [facility] MCR / Plan: [facility] / Product Type: HMO [id number] documented in this encounter Plan of Treatment Not on file documented as of this encounter Visit Diagnoses Diagnosis Chronic obstructive pulmonary disease, unspecified COPD type (HCC) RENEE (obstructive sleep apnea) Obstructive sleep apnea (adult) (pediatric) Pulmonary asbestosis (HCC) Asbestosis Pulmonary nodules Other nonspecific abnormal finding of lung field Class 1 obesity due to excess calories with serious comorbidity and body mass index (BMI) of 30.0 to 30.9 in adult documented in this encounter Care Teams Work Checker Relationship Specialty Start Date End Date Shira Miramontes DO PCP - General Internal Medicine 07/13/17 documented as of this encounter
--- OUTSIDE RECORDS SUMMARY | 2025-05-11 14:00 | XMS_ITS | Encounter Summary ---
Author Organization [employer] Address [address] [facility] 7t [place] [address] Care Team Providers Care Transit Worker Name Role Phone Shira Miramontes DO Primary Care Provider [phone] Allison Johns PharmD Unavailable [phone] Reason for Visit * Reason Comments Med Refill Encounter Details Date Type Department Care Team ([facility] st Contact Info) Description 02/24/2024 Refill [facility] [address] [place] [address] Shira Miramontes DO [address] [place] [address] Insomnia, unspecified type Social History Tobacco Use [...] Description 05/25/2025 11:00 AM EDT Office Visit [facility] [address] [place] [address] documented as of this encounter Goals Goal Patient Goal Type Associated Problems Recent Progress Patient-Stated? Author Hemoglobin A1c < 7 Result Component 6.3(05/11/2025 10:07 AM EDT) No Jim May PharmD documented as of this encounter Visit Diagnoses Diagnosis Insomnia, unspecified type documented in this encounter Additional Health Concerns Assessment Noted Time PHQ-9 Depression Total Score: 1 02/12/20 24 9:59 AM EDT documented as of this encounter Care Teams Transit Worker Relationship Specialty Start Date End Date Shira Miramontes DO [address] [place] [address] PCP - General Family Medicine 01/30/12 Allison Johns PharmD [address] [place] [address] Pharmacist Internal Medicine 04/19/23 01/11/25 documented as of this encounter
--- OUTSIDE RECORDS SUMMARY | 2025-05-11 14:00 | XMS_ITS | Encounter Summary ---
Author Organization [employer] Address [address] [facility] 7t [place] [address] Care Team Providers Care Gemologist Name Role Phone Shira Miramontes DO Primary Care Provider [phone] Allison Johns PharmD Unavailable [phone] Reason for Visit * Reason Comments Med Refill Encounter Details Date Type Department Care Team ([facility] st Contact Info) Description 03/02/2024 Refill [facility] [address] [place], [place] [phone] Shira Miramontes DO [address] [facility] [place] [address] Chronic bilateral low back pain, unspecified whether sciatica present Social History Tobacco Use Types Packs/Day Years [...] Description 05/25/2025 11:00 AM EDT Office Visit [facility] [address] [place] [address] documented as of this encounter Goals Goal Patient Goal Type Associated Problems Recent Progress Patient-Stated? Author Hemoglobin A1c < 7 Result Component 6.3(05/11/2025 10:07 AM EDT) No Jim May, JanaD documented as of this encounter Visit Diagnoses Diagnosis Chronic bilateral low back pain, unspecified whether sciatica present documented in this encounter Additional Health Concerns Assessment Noted Time PHQ-9 Depression Total Score: 1 02/12/20 24 9:59 AM EDT documented as of this encounter Care Teams Gemologist Relationship Specialty Start Date End Date Shira Miramontes DO [address] [place] [address] PCP - General Family Medicine 01/30/12 Allison Johns PharmD [address] [place] [address] Pharmacist Internal Medicine 04/19/23 01/11/25 documented as of this encounter
--- OUTSIDE RECORDS SUMMARY | 2025-05-11 14:00 | XMS_ITS | Encounter Summary ---
Author Organization [employer] Address [address] [facility] 7t [place] [address] Care Team Providers Care Compensation And Benefits Advisor Name Role Phone FredericShira jones Primary Care Provider + [phone] Encounter Details Date Type Department Care Team (Latest Contact Info) Description 05/11/2025 Travel Social History Tobacco Use Types Packs/Day Years [...] AM EDT documented as of this encounter Functional Status * Over the [...] Assessment Author Several days 05/11/2025 11:25 AM TIMBOT Divina Villalta MA * Feeling tired or having little energy Answer Date of Assessment Author Several days 05/11/2025 11:25 AM EDT Divina Villalta MA * Poor appetite or overeating Answer Date of Assessment Author Several days 05/11/2025 11:25 AM EDT Divina Villalta MA * Feeling bad about yourself - or that you are a failure or have let yourself or your family down Answer Date of Assessment Author More than half the days 05/11/2025 11:25 AM EDT Divina Villalta MA * Trouble concentrating on things, such [...] or on edge 3 05/11/2025 11:25 AM Divian Vee MA Not being able to stop or co ntrol worrying 2 05/11/2025 11:25 AM Divina Vee MA Worrying too much about diff erent things 2 05/11/2025 11:25 AM Divina Vee MA Trouble relaxing 1 05/11/2025 11:25 AM Divina Vee MA Being so restless that it is hard to sit still 1 05/11/2025 11:25 AM Divina Vee MA Becoming easily annoyed or irritable 0 05/11/2025 11:25 AM Divina Vee MA Feeling afraid as if somethi ng awful might happen 0 05/11/2025 11:25 AM Divina Vee [place] KIMBERLEE-7 Total Score 9 05/11/2025 11:25 AM Divina Vee [place] documented as of this encounter Plan of Treatment Upcoming Encounters Date Type Department Care Team (Late st Contact Info) Description 05/25/2025 11:00 AM EDT Office Visit [facility] [address] [place] [address] documented as of this encounter Goals Goal Patient Goal Type Associated Problems Recent Progress Patient-Stated? Author Hemoglobin A1c < 7 Result Component 6.3(05/11/2025 10:07 AM EDT) No Jim May, PharmD documented as of this encounter Visit Diagnoses Not on filedocumented in this encounter Additional Health Concerns Assessment Noted Time PHQ-9 Depression Total Score: 10 025 11:25 AM EDT documented as of this encounter Care Teams Compensation And Benefits Advisor Relationship Specialty Start Date End Date Shira Miramontes DO [address] [place] [address] PCP - General Family Medicine 01/30/12 documented as of this encounter
--- OUTSIDE RECORDS SUMMARY | 2025-05-11 14:00 | XMS_ITS | Encounter Summary ---
Author Organization [facility] Address [address] [place] [address] Care Team Providers Care Nutrition Faculty Member Name Role Phone Shira Miramontes DO Primary Care Provider Unava ilable Encounter Details Date Type Department Care Team Description 08/21/2019 Project Controls Specialist Report Medical Records [address] [place] [id number] [place] [address] Social History Tobacco Use Types Packs/Day Years Used Date Smoking Tobacco: Former Cigarettes 1 30 Smokeless Tobacco: Never Alcohol Use Standard Drinks/Week Comments No 0 (1 standard drink = 0.6 oz pur e alcohol) Sex Assigned at Date Recorded Not on file Job Start Date Occupation Industry Not on file Not on file Not on file documented as of this encounter Plan of Treatment Not on file documented as of this encounter Visit Diagnoses Not on filedocumented in this encounter Care Teams Nutrition Faculty Member Relationship Specialty Start Date End Date Shira Miramontes DO PCP - General Internal Medicine 07/13/17 documented as of this encounter
--- OUTSIDE RECORDS SUMMARY | 2025-05-11 14:00 | XMS_ITS | Encounter Summary ---
Author Organization [facility] Address [address] [place] [address] Care Team Providers Care Geographical Historian Name Role Phone FeShira Primary Care Provider Unava ilable Reason for Visit * Reason Comments E-prescribe Rx Request Encounter Details Date Type Department Care Team Description 11/21/2022 Refill Pulmonology - [place] [address] [facility] [address] [place] [phone] Dougie Clark MD [address] [place] [address] E-prescribe Rx Request Social History [...] encounter Miscellaneous Notes * Telephone Encounter - Javier Garcia CMA - 11/22/2022 8:08 AM EDT [place] 12/18/19 NOV 02/22/23 * Telephone Encounter - Evette Crockett - 11/21/2022 4:11 PM EDT Patient would like script to be: E-PRESCRIBED/FAXED TO PHARMACY WHEN WAS THE PATIENT'S LAST APPOINTMENT IN ADULT MEDICINE? *12/17/22 WHEN WAS THE LAST TIME THE PATIENT SAW THEIR PCP? Same as above Does patient have an upcoming appointment? Yes 02/22/23 (THE MEDICATION REQUESTED IS ON THE MED LIST ABOVE) All of the medications requested were on the CURRENT MEDS list Did you check the Pharmacy information above?: YES Patient wants: 30 -day supply Is this a mail order prescription request ? NO If the refill is from a FAXED refill request what is the RX # listed on the fax? N/A Patients current insurance carrier is: Payor: [employer] MCR / Plan: [facility] / Product Type: HMO [id number] documented in this encounter Plan of Treatment [...] adult documented in this encounter Care Teams Geographical Historian Relationship Specialty Start Date End Date Shira Miramontes DO PCP - General Internal Medicine 07/13/17 documented as of this encounter
--- OUTSIDE RECORDS SUMMARY | 2025-05-11 14:01 | XMS_ITS | Clinical Summary ---
Author Organization [facility] Address [address] [place] [address] Phone Care Team Providers Care Aoc Director Intelligence Officer Name Role Phone FeShira Mario MILAN Primary Care Provider [phone] Medications Trelegy Ellipta 100-62.5-25 mcg inhalerIndicatio ns:Obstructive sleep apnea (adult) (pediatric),Occupational Therapist hudson obstructive pulmonary disease, unspecified ([facility] V24, [facility] V28) INHALE 1 PUFF EVERY DAY AT THE SAME TIME 60 each 11 08/12/2024 Active Encounters Date Type Department Care Team Description 03/04[facility] [address] [facility] [address] [place] [address] Dougie Clark MD from Last 3 Months Surgical History Surgery Date Site/Laterality Comments COLONOSCOPY 12/2013 PROCEDURE: HISTORICAL COLONOSCOPY; COMMENT: Hyperplastic Polyp BACK SURGERY 2016 PROCEDURE: HISTORICAL BACK SURGERY Medical History Medical History Date Comments COPD (chronic obstructive pu lmonary disease) ([facility] V24, [facility] V28) 07/09/2017 DX:COPD (chronic o bstructive pulmonary disease) ([facility]) RENEE (obstructive sleep apnea) 07/09/2017 DX :RENEE (obstructive sleep apnea); COMMENT: CPAP Hyperlipidemia 07/09/2017 DX:Hyperlipidemi a Hypertension 07/09/2017 DX:Hypertension CAD (coronary artery disease) 07/09/2017 DX :CAD (coronary artery disease); COMMENT: 11/2015 Nuclr. Strss Tst- Inferior Ischemia Pulmonary asbestosis ([facility] V24, [facility] V28) 07/09/2017 DX:Pulmonary asbestosis ([facility] ) Depression 07/09/2017 DX:Depression Protrusion of lumbar interve rtebral disc 07/09/2017 DX:Protrusion of lumbar intervertebral disc; COMMENT: Scheduled for L4-5 discectomy & fusion April 2017 Diabetes mellitus type 2, uncomplicated ([facility] V24, [facility] V28) 07/09/2017 DX:Diabetes mellitus type 2, uncomplicated ([facility]) Hyperplastic colon polyp 07/09/2017 DX:Hype rplastic colon polyp; COMMENT: 12/2013 Allergic rhinitis 07/09/2017 DX:Allergic rh initis Social History Tobacco Use Types Packs/Day Years Used Date Smoking Tobacco: Former Cigarettes Smokeless Tobacco: Never Alcohol Use Standard Drinks/Week Comments No 0 (1 standard drink = 0.6 oz pur e alcohol) Sex and Gender Information Value Date Recorded Sex Assigned at Not on file Legal Sex Male 6:35 AM EST Gender Identity Not on file Sexual Orientation Not on file Obstetrics History Last Filed Vital Signs Vital Sign Reading Time Taken Comments Blood Pressure 110/62 02/24/2024 8:19 AM EDT Sitting L Arm Pulse 73 02/24/2024 8:19 AM EDT Temperature - - Respiratory Rate - - Oxygen Saturation - - Inhaled Oxygen Concentration - - Weight 84.1 kg (185 lb 6.4 oz) 02/24/2024 8:19 AM EDT Height 167.6 cm (5' 6 ) 02/24/2024 8:19 AM EDT Body Mass Index 29.92 02/24/2024 8:19 AM EDT Plan of Treatment Health Maintenance Due Date Last Done Comments Diabetes: Annual Foot Exam 1973 Diabetes: Annual Retina Eye Exam 1973 Colorectal Cancer Screening: Colonoscopy 08/05/2022 Medicare Annual Wellness Visit 08/05/2022 Social Influencers of Health Screening 08/05/2022 Diabetes: Annual Urine Albumin-Creatinine Ratio (uACR) 08/17/2022 Depression Screening 09/02/2024 Diabetes: Blood Sugar Control Test (HGBA1C) 01/12/2025 07/15/2024 Influenza Vaccine (#1) 2025 , 07/18/2023, 07/10/2022, Additional history exists Diabetes: Annual GFR (Glomerular Filtration Rate) 07/15/2025 07/15/2024 Hypertension/CHF/CAD Annual BMP Blood Test 07/15/2025 07/15/2024 Cholesterol Screening (Lipid Panel) 07/15/2029 07/15/2024 DTaP,Tdap,and Td Vaccines (4 - Td or Tdap) 05/02/2032 05/02/2022, 01/30/2012, 01/01/2012 Hepatitis B Vaccines Completed 02/07/2016, 05/30/2015, 01/27/2015 Zoster Vaccines Completed 11/07/2020, 09/07/2020 Pneumococcal Vaccine: 50+ Years Completed 04/19/2023, 03/01/2015, 01/31/2015, Additional history exists RSV Immunization Adult Patients Completed 10/28/2023 COVID-19 Vaccine Completed 06/29/2024, 07/2023, 01/30/2022, Additional history exists HIV Screening Completed 07/15/2024 Hepatitis C Screening Completed 07/15/2024 HIB Vaccines Aged Out No longer eligi ble based on patient's age to complete this topic HPV Vaccines Aged Out No longer eligi ble based on patient's age to complete this topic Hepatitis A Vaccines Aged Out No long er eligible based on patient's age to complete this topic IPV Vaccines Aged Out No longer eligi ble based on patient's age to complete this topic MMR Vaccines Aged Out No longer eligi ble based on patient's age to complete this topic Meningococcal ACWY Vaccine Aged Out N o longer eligible based on patient's age to complete this topic Meningococcal B Vaccine Aged Out No l onger eligible based on patient's age to complete this topic RSV Immunization Patients Under 20 months Aged Out No longer eligible based on patient's age to complete this topic Varicella Vaccines Aged Out No longer eligible based on patient's age to complete this [place] [address] [place] [address] MEDICARE Member Subscriber Plan / Payer (Ef fective 2019-Present) Name:[place] Bo Relation to Subscriber:Self Name:Chino Bo Payer ID:[id number] Group ID:[id number] Type:Not on file Address: [address] [place] [phone] Care Teams Aoc Director Intelligence Officer Relationship Specialty Start Date End Date Shira Miramontes DO [address] [place] [address] PCP - General Internal Medicine 07/13/17
--- OUTSIDE RECORDS SUMMARY | 2025-05-11 14:01 | XMS_ITS | Encounter Summary ---
Author Organization [employer] Address [address] [facility] 7t [place] [address] Care Team Providers Care Template Inspector Name Role Phone Shira Miramontes DO Primary Care Provider [phone] Allison Johns PharmD Unavailable [phone] Encounter Details Date Type Department Care Team (Late st Contact Info) Description 10/06/2024 Orders Only [facility] [address] [place] [address] Provider, MD Lu Social History Tobacco Use Types Packs/Day Years [...] Description 05/25/2025 11:00 AM EDT Office Visit [facility] [address] [place] [address] documented as of this encounter Goals Goal Patient Goal Type Associated Problems Recent Progress Patient-Stated? Author Hemoglobin A1c < 7 Result Component 6.3(05/11/2025 10:07 AM EDT) No Jim May, PharmD documented as of this encounter Procedures Procedure Name Priority Date/Time Associated Diagnosis Comments CT LUNG SCREENING Routine 10/01/2024 1:29 PM EST documented in this encounter Results * CT Lung Screening Low dose (10/01/2024 1:29 PM EST) Anatomical Region Laterality Modality Lung Computed Tomogra phy us Historical Provider MD ABDUL CT PROCEDURES Final R esult documented in this encounter Visit Diagnoses Not on filedocumented in this encounter Additional Health Concerns Assessment Noted Time PHQ-9 Depression Total Score: 1 02/12/20 24 9:59 AM EDT documented as of this encounter Care Teams Template Inspector Relationship Specialty Start Date End Date Shira Miramontes DO [address] [place] [address] PCP - General Family Medicine 01/30/12 Allison Johns, PharmD [address] [place] [address] Pharmacist Internal Medicine 04/19/23 01/11/25 documented as of this encounter
--- OUTSIDE RECORDS SUMMARY | 2025-05-11 14:01 | XMS_ITS | Encounter Summary ---
Author Organization [facility] Address [address] [place] [address] Care Team Providers Care Air Traffic Coordinator Name Role Phone Shira Miramontes DO Primary Care Provider Unava ilable Reason for Visit * Reason Onset Date Comments TEST RESULTS 03/03/2024 Encounter Details Date Type Department Care Team Description 03/03/2024 Telephone Pulmonology - [place] 175 [facility] [address] [place] [phone] Dougie Clark MD [address] [place] [address] TEST RESULTS Social History Tobacco Use Types Packs/Day Years [...] encounter Miscellaneous Notes * Telephone Encounter - Yolis Sharma - 03/03/2024 10:15 AM EDT Fax received from [facility] cardio with ct scan report . Placed in providers folder documented in this encounter Plan of Treatment Not on file documented as of this encounter Visit Diagnoses Not on filedocumented in this encounter Care Teams Air Traffic Coordinator Relationship Specialty Start Date End Date Shira Miramontes DO PCP - General Internal Medicine 07/13/17 documented as of this encounter
--- OUTSIDE RECORDS SUMMARY | 2025-05-11 14:01 | XMS_ITS | Encounter Summary ---
Author Organization [employer] Address [address] [facility] [address] [place] [address] Care Team Providers Care Fiction And Nonfiction Prose Writer Name Role Phone Shira Miramontes DO Primary Care Provider [phone] iJm May PharmD Unavailable Unavail able Allison Johns PharmD Unavailable [phone] Reason for Visit * Reason Comments Med Refill Encounter Details Date Type Department Care Team (Late st Contact Info) Description 01/17/[address] [facility] [address] [place] [address] Shira Miramontes DO [address] [place], [place] [phone] Chronic bilateral low back pain, unspecified whether sciatica present Social History Tobacco Use Types Packs/Day Years Used Date Smoking Tobacco: Former Cigarettes Passive Smoke Exposure: Never Alcohol Use Standard Drinks/Week Comments Never 0 (1 standard drink = 0.6 oz pur e alcohol) Depression Answer Date Recorded Patient Health Questionnaire-9 Score 9 09/28/2022 Depression Answer Date Recorded Patient Health Questionnaire-2 Score 2 09/28/2022 Sex and Gender Information Value Date Recorded Sex Assigned at Male 07/02/2022 10:22 AM EDT Legal Sex Male 10:22 AM EDT Gender Identity Male 07/02/2022 10:22 AM EDT Sexual Orientation Straight 07/02/2022 10 :22 AM EDT COVID-19 Exposure Response Date Recorded In the last 10 days, have yo u been in contact with someone who was confirmed or suspected to have Coronavirus/COVID-19? No / Unsure 01/17/2023 10:27 AM EDT documented as of this encounter Plan of Treatment Upcoming Encounters Date Type Department Care Team (Late st Contact Info) Description 05/25/2025 11:00 AM EDT Office Visit [facility] [address] [place] [address] documented as of this encounter Goals Goal Patient Goal Type Associated Problems Recent Progress Patient-Stated? Author Hemoglobin A1c < 7 Result Component 6.3(05/11/2025 10:07 AM EDT) No Jim May, PharmD documented as of this encounter Visit Diagnoses Diagnosis Chronic bilateral low back pain, unspecified whether sciatica present documented in this encounter Additional Health Concerns Assessment Noted Time PHQ-9 Depression Total Score: 9 09/28/19 9:13 AM EST documented as of this encounter Care Teams Fiction And Nonfiction Prose Writer Relationship Specialty Start Date End Date Shira Miramontes DO [address] [place] [id number] PCP - General Family Medicine 01/30/12 Jim May, PharmD [address] [place] [id number] Pharmacist Internal Medicine 09/12/22 04/18/23 Allison Johns PharmD [address] [place] [id number] Pharmacist Internal Medicine 04/19/23 01/11/25 documented as of this encounter
--- OUTSIDE RECORDS SUMMARY | 2025-05-11 14:01 | XMS_ITS | Encounter Summary ---
Author Organization [employer] Address [address] [facility] [address] [place] [address] Care Team Providers Care Atlassian Administrator Name Role Phone FeShira Primary Care Provider [phone] Allison Johns PharmD Unavailable [phone] Reason for Visit * Reason Comments Med Refill Encounter Details Date Type Department Care Team ([facility] st Contact Info) Description 06/28/2023 Refill [facility] [address] [place] [address] Keren Carty MD [address] [place] [address] Chronic bilateral low back pain, unspecified whether sciatica present Social History Tobacco Use Types Packs/Day Years Used Date Smoking Tobacco: Former Cigarettes Passive Smoke Exposure: Never Alcohol Use Standard Drinks/Week Comments Never 0 (1 standard drink = 0.6 oz pur e alcohol) Depression Answer Date Recorded Patient Health Questionnaire-9 Score 9 09/28/2022 Housing Stability Answer Date Recorded What is your housing situation today? I have edie borrero 06/17/[address] you li ve. Do you have problems with any of the following? None of the above 06/17/2023 Food Insecurity Answer Date Recorded Within the past 12 months, y ou worried that your food would run out before you got money to buy more: Never True 06/17/2023 Within the past 12 months,th e food you bought just didn't last and you didn't have enough money to get more: Never True Transportation Answer Date Recorded In the past 12 months, has l ack of transportation kept you from medical appts, meetings, work or from getting things needed for daily living? No 06/17/2023 Utilities Answer Date Recorded In the past 12 months, has t he electric, gas, oil or water company threatened to shut off services in your home? No 06/17/2023 Depression Answer Date Recorded Patient Health Questionnaire-2 [...] 11:00 AM EDT Office Visit [facility] [address] [place] [address] documented as of this encounter Goals Goal Patient Goal Type Associated Problems Recent Progress Patient-Stated? Author Hemoglobin A1c < 7 Result Component 6.3(05/11/2025 10:07 AM EDT) No Jim May, PharmD documented as of this encounter Visit Diagnoses Diagnosis Chronic bilateral low back pain, unspecified whether sciatica present documented in this encounter Additional Health Concerns Assessment Noted Time PHQ-9 Depression Total Score: 9 09/28/19 23 9:13 AM EST documented as of this encounter Care Teams Atlassian Administrator Relationship Specialty Start Date End Date Shira Miramontes DO [address] [place] [address] PCP - General Family Medicine 01/30/12 Allison Johns PharmD [address] [place] [address] Pharmacist Internal Medicine 04/19/23 01/11/25 documented as of this encounter
--- OUTSIDE RECORDS SUMMARY | 2025-05-11 14:01 | XMS_ITS | Clinical Summary ---
Author Organization [employer] Address [address] [facility] [address] [place] [address] Care Team Providers Care Rn Allergy Name Role Phone FeZahraShira Primary Care Provider + [phone] Allergies No known active allergies Medications * This document contains information received from the source organization and may not represent a complete record from that organization. Fluticasone-Umec lidin-Vilant (Trelegy Ellipta) 100-62.5-25 MCG/ACT aerosol powder Inhale 1 puff 1 (one) time each day. At the same time each daily Active enalapril (Vasotec) 10 MG tablet Take 10 mg by mouth in the morning. Active metoprolol succinate XL (Toprol-XL) 100 MG 24 hr tablet Take by mouth in the morning. Do not crush or chew. Active fluticasone (Flonase) 50 MCG/ACT nasal sprayIndications :Seasonal allergic rhinitis, unspecified trigger USE 2 SPRAYS IN EACH NOSTRIL EVERY DAY 48 g 1 024 Active naloxone (Narcan) 4 mg/0.1 mL nasal sprayIndications :Chronic low back pain, unspecified back pain laterality, unspecified whether sciatica present Administer 1 spray (4 mg) into affected nostril(s) if needed for opioid reversal. spray 0.1 milliliter by intranasal route in 1 nostril may repeat dose every 2-3 minutes as needed alternating nostrils with each dose 2 each 2 024 Active Alcohol Swabs (Alcohol Prep) 70 % padsIndications: Type 2 diabetes mellitus without complication, without long-term current use of insulin ([facility]) USE TO TEST BLOOD SUGAR TWICE DAILY 100 each 11 2 024 Active glucose blood (FREESTYLE LITE) test stripIndications :Type 2 diabetes mellitus without complication, without long-term current use of insulin ([facility]) USE TO TEST BLOOD SUGAR TWICE DAILY 100 strip Active TRUEplus Lancets 33G miscIndications: Type 2 diabetes mellitus without complication, without long-term current use of insulin ([facility]) USE TO TEST BLOOD SUGAR TWICE DAILY 100 each Active baclofen (Lioresal) 10 MG tablet Take 1 tablet (10 mg) by mouth if needed in the morning, at noon, and at bedtime for muscle spasms. 60 tablet 3 024 2024 Active Diclofenac Sodium 1 % gel Apply 2 g topically if needed in the morning, at noon, in the evening, and at bedtime (pain). 150 g 3 Active atorvastatin (Lipitor) 80 MG tabletIndication s:Other hyperlipidemia TAKE 1 TABLET BY MOUTH AT BEDTIME 90 tablet 1 Active ranolazine (Ranexa) 1000 MG 12 hr tablet Take 1,000 mg by mouth 2 times daily. Active nitroglycerin (Nitrostat) 0.[address] 1 tablet (0.4 mg) under the tongue every 5 (five) minutes if needed for chest pain. place 1 tablet by sublingual route at the 1st sign of attack 90 tablet 1 Active Aspirin EC Adult Low Dose 81 MG EC tablet TAKE 1 TABLET BY MOUTH EVERY MORNING 90 tablet 1 025 Active cetirizine (ZyrTEC) 10 MG tablet TAKE 1 TABLET BY MOUTH EVERY EVENING 90 tablet Active sertraline (Zoloft) 100 MG tabletIndication s:Depression, unspecified depression type TAKE 2 TABLETS BY MOUTH ONCE DAILY IN THE MORNING 180 tablet Active Trulicity 1.5 MG/0.5ML solution auto-injectorInd ications:Type 2 diabetes mellitus without complication, without long-term current use of insulin ([facility]) INJECT ONE PEN (=1.5MG) SUBCUTANEOUSLY ONCE A WEEK DIRECTED 2 mL Active amitriptyline (Elavil) 10 MG tabletIndication s:Chronic bilateral low back pain, unspecified whether sciatica present TAKE 1 TABLET BY MOUTH AT BEDTIME 30 tablet 5 025 Active capsaicin (Capzasin-HP) 0.1 % creamIndications :Chronic low back pain, unspecified back pain laterality, unspecified whether sciatica present Apply thin layer by topical route up to 4 times daily for pain. 45 g 3 025 Active D3 Super Strength 50 MCG (2000 UT) capsule TAKE 1 CAPSULE BY MOUTH EVERY MORNING 90 capsule 3 025 Active traZODone (Desyrel) 50 MG tabletIndication s:Insomnia, unspecified type TAKE 1 TABLET BY MOUTH AT BEDTIME 90 tablet 3 025 Active albuterol (Ventolin HFA) 108 (90 Base) MCG/ACT inhaler INHALE 2 PUFFS BY MOUTH EVERY 4 HOURS NEEDED FOR WHEEZING OR SHORTNESS OF BREATH 18 g 2 025 Active rOPINIRole (Requip) 1 MG tablet TAKE 1 TABLET BY MOUTH AT BEDTIME 90 tablet 1 025 Active oxyCODONE-acetam inophen (Percocet) 5-325 MG tabletIndication s:Chronic low back pain, unspecified back pain laterality, unspecified whether sciatica present Take 1 tablet by mouth every 6 (six) hours if needed for severe pain for up to 28 days. 112 tablet 025 2024 Active rOPINIRole (Requip) 1 MG tablet TAKE 1 TABLET BY MOUTH AT BEDTIME 90 tablet 1 025 2024 Discontinued oxyCODONE-acetam inophen (Percocet) 5-325 MG tabletIndication s:Chronic low back pain, unspecified back pain laterality, unspecified whether sciatica present Take 1 tablet by mouth every 6 (six) hours if needed for severe pain for up to 7 days. 28 tablet 025 2024 Discontinued oxyCODONE-acetam inophen (Percocet) 5-325 MG tabletIndication s:Chronic low back pain, unspecified back pain laterality, unspecified whether sciatica present TAKE 1 TABLET BY MOUTH EVERY 6 HOURS NEEDED FOR SEVERE PAIN FOR UP TO 7 DAYS 28 tablet 025 2024 Discontinued(R eorder (will not trigger notification to Pharmacy)) Active Problems Problem Noted Date Diagnosed Date Long-term current use of opiate analgesic 2024 Overview (02/11/2025): Medication: Percocet 5-325mg Q6H PRN Indication: chronic low back s/p L4-5 decompression/fusion, lumbar disc herniation Last SUPPLY ASSISTANT Agreement: 02/09/25 Assessment & Plan (04/27/2025 2:15 PM EDT): Timeline: - 11/24/24: Group - utox/pill count as expected - 02/09/25: Group - utox/pill count as expected - 04/27/25: Group - utox/pill count as expected Assessment & Plan (02/11/2025 2:03 PM EDT): Timeline: - 11/24/24: Group - utox/pill count as expected - 02/09/25: Group - utox/pill count as expected Assessment & Plan (11/25/2024 6:50 AM EDT): Timeline: - 11/24/24: Group - utox/pill count as expected Healthcare maintenance 02/12/2024 Rash and nonspecific skin eruption 05/15/2023 Psoriasis 03/18/2023 Restless leg syndrome 03/18/2023 Essential hypertension 09/28/2022 Hyperlipidemia 09/28/2022 Major depression, recurrent, chronic 09/28/2022 Chronic low back pain 09/28/2022 Assessment & Plan (04/27/2025 2:15 PM EDT): -Good engagement and participation with Group Medical Visit model -Encouraged multifactorial approach to pain control including pharm and non- pharm modalities -Pill count and utox as expected Assessment & Plan (02/11/2025 2:04 PM EDT): -Good engagement and participation with Group Medical Visit model -Encouraged multifactorial approach to pain control including pharm and non- pharm modalities -Pill count and utox as expected Assessment & Plan (11/25/2024 6:48 AM EDT): -Good engagement and participation with Group Medical Visit model -Encouraged multifactorial approach to pain control including pharm and non- pharm modalities -Pill count and utox as expected Assessment & Plan (03/24/2024 5:32 PM EDT): -Good engagement and participation with Group Medical Visit model, today was first visit. -Encouraged multifactorial approach to pain control including pharm and non- pharm modalities -UTOX as expected. Pill count abnormal. See rn clinical documentation, message sent to PCP by RN. Obstructive sleep apnea 09/28/2022 Pulmonary nodule 09/28/2022 Coronary arteriosclerosis 09/30/2015 Type 2 diabetes mellitus 09/30/2015 Pulmonary asbestosis 09/30/2015 COPD (chronic obstructive pulmonary disease) Resolved Problems Problem Noted Date Diagnosed Date Resolved Date Low back pain radiating to left leg 06/19/2016 09/28/2022 Benign essential hypertension 09/30/2015 09/28/2022 Hypertriglyceridemia 09/30/2015 023 Encounters * This document contains information received from the source organization and may not represent a complete record from that organization. Date Type Department Care Team Description 05/11/2025 9:45 AM EDT Office Visit [facility] [address] [place] [phone] Shira Miramontes DO Type 2 diabetes mellitus without complication, without long-term current use of insulin (CMS/HCC) (Primary Dx); Essential hypertension; Other hyperlipidemia; Major depression, recurrent, chronic (CMS/HCC); Coronary artery disease involving mi'kmaq coronary artery of mi'kmaq heart, unspecified whether angina present; Chronic obstructive pulmonary disease, unspecified COPD type (CMS/HCC); Obstructive sleep apnea; Chronic low back pain, unspecified back pain laterality, unspecified whether sciatica present; Lung nodule; Psoriasis; Trigger little finger of left hand; Healthcare maintenance; Dietary counseling; Exercise counseling 05/11/2025 Travel 05/06/2025 Telephone [facility] [address] [place] [phone] Shira Miramontes DO Chart Prep 05/04/2025 Travel 05/04/2025 Refill [facility] [address] [place] [address] Shira Miramontes DO 04/30/2025 Patient Outreach [facility] [address] [place] [phone] Shira Miramontes DO Pre-visit Planning (SDOH screening negative and tobacco screening negative) 04/27/2025 11:00 AM EDT Office Visit [address] [address] Phalen, Antoinette, JUICE TESTER Chronic low back pain, unspecified back pain laterality, unspecified whether sciatica present (Primary Dx); Long-term current use of opiate analgesic 04/27/2025 Travel 04/22/2025 Refill [facility] [address] [place] [address] Shira Miramontes DO Chronic low back pain, unspecified back pain laterality, unspecified whether sciatica present 04/12/[address] [address] Shira Miramontes DO No Show 04/08/[address] [address] Shira Miramontes DO Chart Prep 03/23/2025 Refill [facility] [address] [place] [address] Shira Miramontes DO Chronic low back pain, unspecified back pain laterality, unspecified whether sciatica present 02/25/[address] [address] Bijal Nation, ZIGGY Recommend SUPPLY ASSISTANT Tier 2 02/10/[address] [address] Shira Miramontes DO Insomnia, unspecified type 02/09/2025 9:45 AM EDT Office Visit [address] [address] Phalen, Antoinette, JUICE TESTER Chronic low back pain, unspecified back pain laterality, unspecified whether sciatica present (Primary Dx); Long-term current use of opiate analgesic 02/09/[address] [place] [address] Bijal Nation, RN SUPPLY ASSISTANT Renewal today 02/09/2025 Travel 02/08/2025 Telephone [facility] [address] [place] [address] Neena Holt, ZIGGY from Last 3 Months Immunizations Immunization Administration Dates Next Due Hep B, adult 02/07/2016,05/30/2015,01/27/2015 Influenza Injectable Quadriv alant Preservative Free IIV4 MDCK 07/10/2022 Influenza injectable quadriv alent IIV4 with preservative 07/14/2018,06/08/2016,05/30/2015 Influenza injectable quadriv alent preservative free 07/18/2023,05/30/2021,08/15/2020,07/13,06/06/2017 Influenza, IIV3, injectable 06/02/2016, 4 Influenza, Split (incl. ayad fied surface antigen) 06/22/2013 Influenza, live, intranasal 06/26/2012 Influenza, seasonal, injecta ble, preservative free 06/29/2024 Moderna Covid-19 Vaccine 12+ 01/30/2022, 08/23/2021,12/20/2020,11/22 Moderna Covid-19 Vaccine 6+ Bivalent 09/12/2022 PPD Test 02/01/2016 Pfizer Covid-19 Vaccine 12+ 06/29/2024 Pneumococcal Conjugate PCV 13 03/01/2015, 015 Pneumococcal Conjugate PCV 20 04/19/2023 Pneumococcal Polysaccharide PPSV23 01/30/2012 RSV Bivalent 10/28/2023 TD (adult), 2 Lf tetanus tox oid, preservative free, adsorbed 05/02/2022 Tdap 01/30/2012,01/01/2012 Zoster, Recombinant 11/07/2020,09/07/2020 Social History Tobacco Use Types Packs/Day Years Used Date Smoking Tobacco: Former Cigarettes Passive Smoke Exposure: Past Smokeless Tobacco: Never Tobacco Cessation:Counseling Given: Not Answered Alcohol Use Standard Drinks/Week Comments Never 0 [...] Orientation Straight 07/02/2022 10 :22 AM EDT Last Filed Vital Signs Vital Sign Reading [...] Mass Index 30.95 05/11/2025 10:03 AM EDT Plan of Treatment Upcoming Encounters Date Type Department Care Team (Late st Contact Info) Description 05/25/2025 11:00 AM EDT Office Visit [facility] [address] [place] [phone] Health Maintenance Due Date Last Done Comments CT Colonography 1965 FIT DNA/Cologuard 1965 FIT 1965 FOBT 1965 Sigmoidoscopy 1965 Diabetes: Foot Exam 1973 Eye Exam 1973 Colonoscopy 01/05/2024 01/04/2014 Colorectal Cancer Screening 01/05/2024 Influenza Vaccine (#1) 2025 , 07/18/2023, 07/10/2022, Additional history exists Diabetes: Urine Protein Screening 07/15/2025 07/15/2024, 04/29/2023, 07/10/2022, Additional history exists Lipid Panel 07/15/2025 07/15/2024, 04/03, 07/10/2022, Additional history exists Depression Monitoring 11/08/2025 05/11/2025, 025 Diabetes: Hemoglobin A1C 11/08/2025 025, 07/15/2024, 06/29/2024, Additional history exists SDOH Screening 04/30/2026 04/30/2025 Alcohol/Substance Use Screening 05/11/2026 05/11/2025 Disability Screening 05/11/2026 05/11/2025 Tobacco Screening 05/11/2026 05/11/2025 DTaP/Tdap/Td Vaccines (4 - Td or Tdap) 05/02/2032 05/02/2022, 01/30/2012, 01/01/2012 Hepatitis B Vaccines Completed 02/07/2016, 05/30/2015, 01/27/2015 Zoster Vaccines Completed 11/07/2020, 09/07/2020 Pneumococcal Vaccine: 50+ Years Completed 04/19/2023, 03/01/2015, 01/31/2015, Additional history exists RSV Patients and Patients Aged 60 years or older Completed 10/28/2023 COVID-19 Vaccine Completed 06/29/2024, 07/2023, 01/30/2022, Additional history exists HIV Screening Completed 07/15/2024, 04/03, 07/10/2022, Additional history exists Hepatitis C Screening Completed 07/15/2024 , 04/29/2023, 07/10/2022, Additional history exists HIB Vaccines Aged Out No longer eligi [...] patient's age to complete this topic Meningococcal Vaccine Aged Out No curtis lynn eligible based on patient's age to complete this topic RSV under 20 months Aged Out No longe r eligible based on patient's age to complete this topic Rotavirus Vaccines Aged Out No longer eligible based on patient's age to complete this topic Goals Goal Patient Goal Type Associated Problems Recent Progress Patient-Stated? Author Hemoglobin A1c < 7 Result Component 6.3(05/11/2025 10:07 AM EDT) No Dellogseng, Jim, PharmD Procedures Procedure Name Priority Date/Time Associated Diagnosis Comments XR HAND 3+ VIEWS LEFT Routine 05/11/2025 12:23 PM EDT Trigger little finger of left hand POCT GLYCATED HEMOGLOBIN, TOTAL Routine 05/11/2025 10:07 AM EDT Type 2 diabetes mellitus without complication, without long-term current use of insulin ([facility]) POCT GLUCOSE Routine 05/11/2025 10:05 AM EDT Type 2 diabetes mellitus without complication, without long-term current use of insulin ([facility]) POCT DESTINEY-14 URINE DRUG SCREEN Routine 04/27/2025 11:34 AM EDT Chronic low back pain, unspecified back pain laterality, unspecified whether sciatica present POCT DESTINEY-14 URINE DRUG SCREEN Routine 02/09/2025 10:12 AM EDT Long-term current use of opiate analgesic Chronic low back pain, unspecified back pain laterality, unspecified whether sciatica present HEPATITIS C AB W/REFL TO HCV RNA, QN, PCR Routine 07/15/2024 8:33 AM EST Healthcare maintenance HIV 1/2 ANTIGEN/ANTIBODY, FOURTH GENERATION W/RFL Routine 07/15/2024 8:33 AM EST Healthcare maintenance ALBUMIN, RANDOM URINE W/CREATININE Routine 07/15/2024 8:33 AM EST Type 2 diabetes mellitus without complication, without long-term current use of insulin (CMS/HCC) LIPID PANEL, STANDARD Routine 07/15/2024 8:33 AM EST Type 2 diabetes mellitus without complication, without long-term current use of insulin (CMS/HCC) HM COLONOSCOPY Routine 01/04/2014 11:42 AM EDT from Last 3 Months or Most Recently Relevant to Health Maintenance Results * XR Hand 3+ Views Left (05/11/2025 12:23 PM EDT) Anatomical Region Laterality Modality Upper Extremities, Hand Left Radiogra phic Imaging 05/11/2025 12:2 3 PM EDT Narrative 05/11/2025 1:12 [id number] [id number] XRay Report Signed Patient: Chino Bo MR#: [id number] : 1965 Acct:[id number] Age/Sex: 60 / M ADM Date: 05/11/25 Loc: HO.HHCX Attending Dr: Shira Miramontes DO Ordering Physician: Shira Miramontes DO Date of Service: 05/11/25 Procedure(s): XR hand LT min 3V Accession Number(s): [id number] cc: Shira Miramontes DO Reason for Exam: [...] 05/11/25 1310 DD/ 1223 TD/TT: 05/11/25 1230 Student Support Counselor: Procedure Note Donotuseinterpreter, Image - 05/11/[address] [address] XRay Report Signed Patient: Jose Bo#: [id number] : 1965Acct:[id number] Age/Sex: 60 / MADM Date: 05/11/25 Loc: HO.HHCX Attending Dr: Shira Miramontes DO Ordering Physician: Shira Miramontes DO Date of Service: 05/11/25 Procedure(s): XR hand LT min 3V Accession Number(s): [id number] cc: Shira Miramontes DO Reason for Exam: [...] 05/11/25 1310 DD/ 1223 TD/TT: 05/11/25 1230 Student Support Counselor: Shira Miramontes DO IMG XR PROCEDURES Final Resu lt * (ABNORMAL) POCT Hgb A1c (05/11/2025 10:07 AM EDT) Pathologist [facility] Hemoglobin A1C 6.3(A) 4.0 - 5.7 % QC Media Lot # [id number] Lot# Expiration Date Blood 05/11/2025 10:0 7 AM EDT Shira Miramontes DO POINT OF CARE TEST ENTER/ROSARIO T ORDERABLES Final Result * (ABNORMAL) POCT Glucose (05/11/2025 10:05 AM EDT) Pathologist [facility] Glucose Blood, POC 88(A) 60 - 200 mg/dL QC Media Lot # [id number] Lot# Expiration Date 958 Blood Capillary blood specimen / Unknown 05/11/2025 10:05 AM EDT Shira Jurwaleska DO POINT OF CARE TEST ENTER/ROSARIO T ORDERABLES Final Result * (ABNORMAL) POCT DESTINEY-14 Urine Drug Screen (04/27/2025 11:34 AM EDT) Only the most recent of2 resultswithin the time period is included. THC Negative Negative Cocaine Screen, Urine Negative Negative Opiate Screen, Urine Negative Negative Methamphetamine Screen Urine Negative Negative Amphetamine Screen, Urine Negative Negative Benzodiazepines Screen, Urine Negative Negative Barbiturate Screen, Urine Negative Negative Methadone Screen, Urine Negative Negative Buprenophine Screen, Urine Negative Negative TCA, Urine Positive(A) Negative MDMA Urine Negative Negative ng/mL Oxycodone Screen, Urine Positive(A) Negative Phencyclidine (PCP), Urine Negative Negative Propoxyphene, Urine Negative Negative Fentanyl, Urine Negative Negative Urine Urine specimen obtained by clean catch procedure / Unknown 04/27/2025 11:34 AM EDT Narrative Neena Holt RN - 04/27/2025 11:34 AM EDT .UTOX cup Lot#[id number] Exp. 06/08/26 Internal Pass Control Antoinette Gabriel JUICE TESTER POINT OF CARE TEST ENTER/EDIT ORDERABLES Final Result * Albumin, Random Urine W/Creatinine (07/15/2024 8:33 AM EST) Creatinine, Urine 181.01 mg/dL [facility] Microalbumin Urine 8.0 mg/L [facility] Microalbum Creatinine Ratio Ur 4.4 <30 ug/mg cr [facility] Comment:Albumin/Creatinine R atio Reference Ranges: Normal: < 30 ug/mg creatinine Microalbuminuria: 30 - 300 ug/mg creatinineClinical Albuminuria: > 300 ug/mg creatinine Urine (Urine, Random) 07/15/2024 8:33 AM EST 07/15/2024 10:47 AM EST Shira Miramontes DO LAB URINE ORDERABLES Final R esult [facility] [address] [place] [address] [phone] * Hepatitis C Antibody with Reflex to HCV, RNA, Quantitative, Real-Time PCR (07/15/2024 8:33 AM EST) Hepatitis C Antibody Nonreactive Nonreactive [facility] Comment:Antibodies to HCV no t detected; does not exclude early acuteHCV infection. Blood Venous blood specimen / Unknown 07/15/2024 8:33 AM EST 07/15/2024 10:51 AM EST Shira Burtonpinkykaren DO LAB BLOOD ORDERABLES Final R esult Performing Organization Address City/[facility] Co de Phone Number [facility] [address] [place] [phone] * HIV-1/2 Antigen and Antibodies, Fourth Generation, with Reflexes (07/15/2024 8:33 AM EST) HIV AB/AG Nonreactive Nonreactive [facility] Comment:HIV-1 p24 Ag and/or HIV-1/HIV-2 Ab not detected.A test result that is nonreactive does not exclude thepossibility of exposure to or infection with HIV-1 and/orHIV-2. Nonreactive results in this assay for individualswith prior exposure to HIV-1 and/or HIV-2 may be due toantigen and antibody levels that are below the limit ofdetection of this assay.The [employer] HIV Ag/Ab Combo assay result andsupplemental assay results should be interpreted inconjunction with the patient's clinical presentation,history and other laboratory results. If the results areinconsistent with clinical evidence, additional testing issuggested to confirm the result. Blood Venous blood specimen / Unknown 07/15/2024 8:33 AM EST 07/15/2024 10:51 AM EST Shira Fe DO LAB BLOOD ORDERABLES Final R derekult Performing Organization Address City/[facility]/ZIP Co de Phone Number [facility] [address] [place] [phone] * (ABNORMAL) Lipid Panel, Standard (07/15/2024 8:33 AM EST) Triglycerides 159(H) <150 mg/dL [facility] Comment:Desirable Triglyceri de: less than 150 mg/dLBorderline High Triglyceride 150-199 mg/dLHigh Triglyceride: 200-499 mg/dLVery High Triglyceride: greater than or equal to 5OO mg/dL Cholesterol 110 <200 mg/dL [facility] Comment:Desirable Cholestero l: less than 200 mg/dLBorderline High Cholesterol: 200-239 mg/dLHigh Cholesterol: greater than 239 mg/dL LDL Cholesterol Calculated 48 <100 mg/dL [facility] Comment:Desirable LDL: less than 100 mg/dLNear Optimal/Above Optimal LDL: 110- 129 mg/dLBorderline High LDL: 130-159 mg/dLHigh LDL: 160-189 mg/dLVery High LDL: greater than or equal to 190 mg/dL HDL Cholesterol 31(L) >40 mg/dL [facility] Comment:Desirable HDL: great er than 40 mg/dL Note: This HDL assay may give artificially low results in patients with liver disease. Blood Venous blood specimen / Unknown 07/15/2024 8:33 AM EST 07/15/2024 10:51 AM EST Shira Miramontes DO LAB BLOOD ORDERABLES Final R esult [facility] [address] [place] [phone] * Hm Colonoscopy (01/04/2014 11:42 AM EDT) Historical Provider HEALTH MAINTENANCE Final Result from Last 3 Months or Most Recently Relevant to Health Maintenance Insurance [facility] ST[facility] CARE < [address] [place] [id number] Care Teams Rn Allergy Relationship Specialty Start Date End Date Shira Miramontes DO [address] [place] [phone] PCP - General Family Medicine 01/30/12
--- OUTSIDE RECORDS SUMMARY | 2025-05-11 14:01 | XMS_ITS | Encounter Summary ---
Author Organization [employer] Address [address] [facility] [address] [place] [address] Care Team Providers Care Solar Development Engineer Name Role Phone Shira Miramontes DO Primary Care Provider [phone] Allison Johns PharmD Unavailable [phone] Reason for Visit * Reason Comments Med Refill Encounter Details Date Type Department Care Team ([facility] st Contact Info) Description 02/22/2024 Refill [facility] [address] [place] [address] Shira Miramontes DO [address] [place] [address] Social History Tobacco Use Types Packs/Day Years [...] Description 05/25/2025 11:00 AM EDT Office Visit [facility] [address] [place] [address] documented as of this encounter Goals Goal [...] documented as of this encounter Care Teams Solar Development Engineer Relationship Specialty Start Date End Date Shira Miramontes DO [address] [place] [phone] PCP - General Family Medicine 01/30/12 Allison Johns PharmD [address] [place] [address] Pharmacist Internal Medicine 04/19/23 01/11/25 documented as of this encounter
--- OUTSIDE RECORDS SUMMARY | 2025-05-11 14:01 | XMS_ITS | Encounter Summary ---
Author Organization [employer] Address [address] [place] [address] 7t [place] [address] Care Team Providers Care Ex Assistant/Program Director Name Role Phone Shira Miramontes DO Primary Care Provider [phone] Jim May PharmD Unavailable Unavail able Allison Johns PharmD Unavailable Reason for Visit * Reason Comments Med Refill Encounter Details Date Type Department Care Team (Late Contact Info) Description 02/21/2023 Refill [facility] MEDICINE [address] [place] [address] Shira Miramontes DO [address] [place] [address] Social History Tobacco Use Types Packs/Day Years [...] Description 05/25/2025 11:00 AM EDT Office Visit [facility] MED[facility]INE [address] [place] [address] documented as of this encounter Goals Goal [...] documented as of this encounter Care Teams Ex Assistant/Program Director Relationship Specialty Start Date End Date Shira Miramontes DO [address] [place] [address] PCP - General Family Medicine 01/30/12 Jim May, PharmD [address] [place] [address] Pharmacist Internal Medicine 09/12/22 04/18/23 Allison Johns PharmD [address] [place] [address] Pharmacist Internal Medicine 04/19/23 01/11/25 documented as of this encounter
--- OUTSIDE RECORDS SUMMARY | 2025-05-11 14:01 | XMS_ITS | Encounter Summary ---
Author Organization [employer] Address [address] [place] [address] 7t [place] [address] Care Team Providers Care Bath Steward/Stewardess Name Role Phone JosephineShira galeano Primary Care Provider [phone] PuAllison ochoa PharmD Unavailable [phone] Encounter Details Date Type Department Care Team (Late st Contact Info) Description 04/19/2023 Abstract [facility] MEDICINE [address] [place] [address] PuiaCodyAllison, PharmD [address] [place] [address] Social History Tobacco Use Types Packs/Day Years [...] Description 05/25/2025 11:00 AM EDT Office Visit [facility] MEDICINE [address] [place] [address] documented as of this encounter Goals Goal [...] documented as of this encounter Care Teams Bath Steward/Stewardess Relationship Specialty Start Date End Date Shira Miramontes DO [address] [place] [address] PCP - General Family Medicine 01/30/12 Allison Johns PharmD [address] [place] [address] Pharmacist Internal Medicine 04/19/23 01/11/25 documented as of this encounter
--- OUTSIDE RECORDS SUMMARY | 2025-05-11 14:01 | XMS_ITS | Encounter Summary ---
Author Organization [employer] Address [address] [facility] 7t [place] [address] Care Team Providers Care Platform Man Name Role Phone FeShira Primary Care Provider [phone] Allison Johns PharmD Unavailable [phone] Reason for Visit * Reason Comments Med Refill Encounter Details Date Type Department Care Team ([facility] st Contact Info) Description 07/03/2023 Refill [facility] MEDICINE [address] [place] [address] Keren Carty MD [address] [place] [address] Chronic bilateral low back pain, unspecified whether [...] Description 05/25/2025 11:00 AM EDT Office Visit [facility] MEDICINE [address] [place] [address] documented as of this encounter Goals Goal [...] documented as of this encounter Care Teams Platform Man Relationship Specialty Start Date End Date Shira Miramontes DO [address] [place] [address] PCP - General Family Medicine 01/30/12 Allison Johns PharmD [address] [place] [address] Pharmacist Internal Medicine 04/19/23 01/11/25 documented as of this encounter
--- OUTSIDE RECORDS SUMMARY | 2025-05-11 14:01 | XMS_ITS | Encounter Summary ---
Author Organization [employer] Address [address] [facility] 7t [place] [address] Care Team Providers Care Bell Staff Name Role Phone Shira Miramontes DO Primary Care Provider [phone] Allison Johns PharmD Unavailable [phone] Reason for Visit * Reason Comments Med Refill Encounter Details Date Type Department Care Team ([facility] st Contact Info) Description 12/21/2024 Refill [facility] MEDICINE [address] [place] [address] Shira Miramontes DO [address] [place] [address] Social History Tobacco Use Types Packs/Day Years [...] the past 12 months, has t he [employer] gas, oil or water company threatened to [...] 11:00 AM EDT Office Visit [facility] MEDICINE [address] [place] [address] documented as of this encounter Goals Goal [...] documented as of this encounter Care Teams Bell Staff Relationship Specialty Start Date End Date Shira Miramontes DO [address] [place] [address] PCP - General Family Medicine 01/30/12 Allison Johns PharmD [address] [place] [address] Pharmacist Internal Medicine 04/19/23 01/11/25 documented as of this encounter
--- OUTSIDE RECORDS SUMMARY | 2025-05-11 14:01 | XMS_ITS | Encounter Summary ---
Author Organization [employer] Address [address] [facility] 7t [place] [address] Care Team Providers Care Waiter/Waitress Buffet Name Role Phone Shira Miramontes DO Primary Care Provider [phone] Allison Johns PharmD Unavailable [phone] Encounter Details Date Type Department Care Team (Late st Contact Info) Description 12/11/2023 Orders Only [facility] MEDICINE [address] [place] [address] ProviderLu MD Social History Tobacco Use Types Packs/Day Years [...] Description 05/25/2025 11:00 AM EDT Office Visit [facility] MEDICINE [address] [place] [address] documented as of this encounter Goals Goal Patient Goal Type Associated Problems Recent Progress Patient-Stated? Author Hemoglobin A1c < 7 Result Component 6.3(05/11/2025 10:07 AM EDT) No Jim May, JanaD documented as of this encounter Procedures Procedure Name Priority Date/Time Associated Diagnosis Comments HM COLONOSCOPY Routine 01/04/2014 11:42 AM EDT documented in this encounter Results * Hm Colonoscopy (01/04/2014 11:42 AM EDT) us Historical Provider HEALTH MAINTENANCE Final Result documented in this encounter Visit Diagnoses Not on filedocumented in this encounter Additional Health Concerns Assessment Noted Time PHQ-9 Depression Total Score: 9 09/28/19 23 9:13 AM EST documented as of this encounter Care Teams Waiter/Waitress Buffet Relationship Specialty Start Date End Date Shira Miramontes DO [address] [place] [address] PCP - General Family Medicine 01/30/12 Allison Johsn PharmD [address] [place] [address] Pharmacist Internal Medicine 04/19/23 01/11/25 documented as of this encounter
--- OUTSIDE RECORDS SUMMARY | 2025-05-11 14:01 | XMS_ITS | Encounter Summary ---
Author Organization [facility] Address [facility] [place] [address] Care Team Providers Care Car Framer Name Role Phone Shira Miramontes DO Primary Care Provider Unava ilable Encounter Details Date Type Department Care Team Description 08/07/2017 Transfer Records Medical Records [address] [place] [address] Abstract, Provider Social History Tobacco Use Types Packs/Day [...] on filedocumented in this encounter Care Teams Car Framer Relationship Specialty Start Date End Date Shira Miramontes DO PCP - General Internal Medicine 07/13/17 documented as of this encounter
--- OUTSIDE RECORDS SUMMARY | 2025-05-11 14:01 | XMS_ITS | Encounter Summary ---
Author Organization [employer] Address [address] [place] [address] 7t [place] [address] Care Team Providers Care Glass Setter Name Role Phone Shira Miramontes DO Primary Care Provider [phone] Jim May PharmD Unavailable Unavail able Allison Johns PharmD Unavailable Reason for Visit * Reason Comments Med Refill Encounter Details Date Type Department Care Team (Late st Contact Info) Description 08/10/2022 Refill [facility] MEDICINE [address] [place] [address] Shira Miramontes DO [address] [place], [place] [phone] Social History Tobacco Use Types Packs/Day Years [...] Description 05/25/2025 11:00 AM EDT Office Visit [facility] MEDICINE [address] [place] [address] documented as of this encounter Visit Diagnoses Not on filedocumented in this encounter Care Teams Glass Setter Relationship Specialty Start Date End Date Shira Miramontes DO [address] [place] [address] PCP - General Family Medicine 01/30/12 Jim May, PharmD [address] [place] [address] Pharmacist Internal Medicine 09/12/22 04/18/23 Allison Johns, PharmD [address] [place] [address] Pharmacist Internal Medicine 04/19/23 01/11/25 documented as of this encounter
--- OUTSIDE RECORDS SUMMARY | 2025-05-11 14:01 | XMS_ITS | Encounter Summary ---
Author Organization [facility] Address [address] [place] [address] Care Team Providers Care Crystal Grower Name Role Phone Shira Miramontes DO Primary Care Provider Unava ilable Encounter Details Date Type Department Care Team Description 01/05/2019 Revenue Field Agent Report Medical Records [address] [place] [id number] [place] [address] Social History Tobacco Use Types Packs/Day Years [...] on filedocumented in this encounter Care Teams Crystal Grower Relationship Specialty Start Date End Date Shira Miramontes DO PCP - General Internal Medicine 07/13/17 documented as of this encounter
--- OUTSIDE RECORDS SUMMARY | 2025-05-11 14:01 | XMS_ITS | Encounter Summary ---
Author Organization [employer] Address [address] [facility] 7t [place] [address] Care Team Providers Care Production Mechanic Tin Cans Name Role Phone Shira Miramontes DO Primary Care Provider [phone] Allison Johns PharmD Unavailable [phone] Reason for Visit * Reason Comments Med Refill Encounter Details Date Type Department Care Team ([facility] st Contact Info) Description 07/10/2024 Refill [facility] [address] [place] [address] Shira Miramontes DO [address] [place] [address] Chronic low back pain, unspecified back pain laterality, unspecified whether sciatica present Social History Tobacco [...] Description 05/25/2025 11:00 AM EDT Office Visit [facility] MEDICINE [address] [place] [address] documented as of this encounter Goals Goal Patient Goal Type Associated Problems Recent Progress Patient-Stated? Author Hemoglobin A1c < 7 Result Component 6.3(05/11/2025 10:07 AM EDT) No Jim May, PharmD documented as of this encounter Visit Diagnoses Diagnosis Chronic low back pain, unspecified back pain laterality, unspecified whether sciatica present documented in this encounter Additional Health Concerns Assessment Noted Time PHQ-9 Depression Total Score: 1 02/12/20 24 9:59 AM EDT documented as of this encounter Care Teams Production Mechanic Tin Cans Relationship Specialty Start Date End Date Shira Miramontes DO [address] [place] [address] PCP - General Family Medicine 01/30/12 Allison Johns PharmD [address] [place] [address] Pharmacist Internal Medicine 04/19/23 01/11/25 documented as of this encounter
--- OUTSIDE RECORDS SUMMARY | 2025-05-11 14:01 | XMS_ITS | Clinical Summary ---
Author Organization [facility] Address [address] [place] [address] Care Team Providers Care Masonry Installer Name Role Phone Shira Miramontes DO Primary Care Provider Unava ilable Allergies Active Allergy Reactions Severity Noted Date Comments No Known Drug Allergies 08/01/2017 Medications Medication Sig Dispensed Refills Start Date End Date Status isosorbide mononitrate (IMDUR) 120 MG 24 hr tablet Take 1 Tab by mouth daily. In the morning 0 Active metoprolol (TOPROL-XL) 100 MG 24 hr tablet Take 1 Tab by mouth daily. 0 Active nitroGLYCERIN (NITROSTAT) 0.[address] 1 Tab under the tongue. at the first sign of symptoms; may repeat every 5 minutes x 3 doses. Call 911 if symptoms do not resolve. 0 Active fluticasone 50 MCG/ACT nasal spray 2 Sprays by Each Nare route daily. 0 Active enalapril (VASOTEC) 20 MG tablet Take 1 Tab by mouth 2 times daily. 0 Active atorvastatin (LIPITOR) 80 MG tablet Take 1 Tab by mouth at bedtime. 0 Active [facility]-3 Fatty Acids (FISH OIL OR) Take 2 Caps by mouth 2 times daily. 340 mg - 1000mg capsule. 0 Active cetirizine (ZYRTEC) 10 MG tablet Take 1 Tab by mouth daily. 0 Active fenofibrate micronized (LOFIBRA) 200 MG capsule Take 1 Cap by mouth. Every day with food 0 Active aspirin 81 MG tablet Take 1 Tab by mouth daily. 0 Active Cholecalciferol (VITAMIN D3) 2000 UNITS Cap Take 1 Cap by mouth daily. 0 Active sertraline (ZOLOFT) 100 MG tablet Take 2 Tabs by mouth daily. 0 Active oxycodone-acetamino phen (PERCOCET) 2.5-325 MG per tablet Take 1 tablet by mouth every 6 hours as needed. 0 Active baclofen (LIORESAL) 10 MG tablet Take 1 Tab by mouth 3 times daily. 0 Active hydrOXYzine (VISTARIL) 50 MG capsule Take 1 Cap by mouth 4 times daily. 0 Active ALBUTEROL SULFATE (VENTOLIN HFA) 108 (90 BASE) MCG/ACT Aero SolnIndications:RENEE (obstructive sleep apnea),Chronic obstructive pulmonary disease, unspecified COPD type (HCC),History of tobacco abuse Inhale 2 Puffs into the lungs 4 times daily as needed for Wheezing or Shortness of Breath. 1 Inhaler 11 12/25/2017 Active CPAP Historical (HISTORICAL CPAP)Indications:Ch ronic obstructive pulmonary disease, unspecified COPD type (HCC),RENEE (obstructive sleep apnea),Pulmonary asbestosis (HCC) Inhale into the lungs. [employer] 0 Active albuterol (PROVENTIL) (2.5 MG/3ML) 0.083% nebulizer solutionIndications :Chronic obstructive pulmonary disease, unspecified COPD type (HCC),RENEE (obstructive sleep apnea),Pulmonary asbestosis (HCC) Take 1 Vial by nebulization every 4 hours as needed for Wheezing for up to 180 days. 50 Vial 6 06/27/2018 Active Fluticasone-Umeclid in-Vilant 200-62.5-25 MCG/ACT AEROSOL POWDER,BREATH ACTIVATEDIndication s:Chronic obstructive pulmonary disease, unspecified COPD type (HCC) Inhale into the lungs. 0 Active Active Problems Problem Noted Date Pulmonary nodules 06/19/2019 Obese 06/19/2019 COPD (chronic obstructive pulmonary dise ase) 07/09/2017 RENEE (obstructive sleep apnea) 07/09/2017 Overview: CPAP Hyperlipidemia 07/09/2017 Hypertension 07/09/2017 CAD (coronary artery disease) 07/09/2017 Overview: 11/2015 Nuclr. Strss Tst- Inferior Ischemia Pulmonary asbestosis 07/09/2017 Depression 07/09/2017 Protrusion of lumbar intervertebral disc 07/09/2017 Overview: Scheduled for L4-5 discectomy & fusion April 2017 Diabetes mellitus type 2, uncomplicated 07/09/2017 Hyperplastic colon polyp 07/09/2017 Overview: 12/2013 Allergic rhinitis 07/09/2017 Immunizations Name Administration Dates Next Due Influenza (> 6 Months) 06/02/2016 PPD-Negative Response(External) 02/01/2016 Pneumococcal Conjugate PCV-13 01/31/2015 Pneumovax Adult(PT Reported) 01/01/2012 Tdap 01/01/2012 Social History Tobacco Use Types Packs/Day Years Used Date Smoking Tobacco: Former Cigarettes 1 30 Smokeless Tobacco: Never Alcohol Use Standard Drinks/Week Comments No 0 (1 standard drink = 0.6 oz pur e alcohol) Sex Assigned at Date Recorded Not on file Job Start Date Occupation Industry Not on file Not on file Not on file Last Filed Vital Signs Vital Sign Reading Time Taken Comments Blood Pressure 110/62 02/24/2024 8:19 AM EDT Pulse 73 02/24/2024 8:19 AM EDT Temperature 36.2 C (97.1 F) 02/24/2024 8:19 AM EDT Respiratory Rate 20 02/24/2024 8:19 AM EDT Oxygen Saturation 98% 02/24/2024 8:19 AM EDT Inhaled Oxygen Concentration - - Weight 84.1 kg (185 lb 6.4 oz) 02/24/2024 8:19 A M EDT Height 167.6 cm (5' 6 ) 02/24/2024 8:19 AM EDT Body Mass Index 29.92 02/24/2024 8:19 AM EDT Plan of Treatment Health Maintenance Due Date Last Done Comments Covid-19 Vaccine (#1) 1965 DIABETES/HEART DISEASE: ASHLEY AL CHOLESTEROL (LDL) 1981 DIABETES: ANNUAL FOOT EXAM 1981 DIABETES: ANNUAL URINE PROTE IN TEST (MICROALBUMIN) 1981 DIABETES: BLOOD SUGAR CONTRO L TEST (HGBA1C) 1981 HEPATITIS C SCREENING 1981 BASELINE HEALTH EXAM 40-64 2003 COLON CANCER SCREENING 2013 SHINGLES VACCINE (1 of 2) 2013 DIABETES: ANNUAL EYE EXAM 12/31/20162015 (External Completion) DTAP/TDAP/TD (2 - Td or Tdap) 12/31/2021 01/01/2012 BMI CHECK/ADVISE 09/02/2024 12/18/2019, , 06/25/2018 INFLUENZA (#1) 2025 06/02/2016 PNEUMOCOCCAL VACCINE FOR HIG H RISK PATIENTS (#2) 2028 01/31/2015, 01/01/2012 Care Teams Masonry Installer Relationship Specialty Start Date End Date Shira Miramontes DO PCP - General Internal Medicine 07/13/17
--- OUTSIDE RECORDS SUMMARY | 2025-05-11 14:01 | XMS_ITS | Encounter Summary ---
Author Organization [facility] Address [address] [place] [address] Care Team Providers Care Frame Opener Name Role Phone Shira Miramontes DO Primary Care Provider Unava ilable Encounter Details Date Type Department Care Team Description 09/30/2018 Curriculum And Assessment Director Report Medical Records [address] [place] [address] Marino Garcia PA [address] [place] [address] Social History Tobacco Use Types Packs/Day Years [...] on filedocumented in this encounter Care Teams Frame Opener Relationship Specialty Start Date End Date Shira Miramontes DO PCP - General Internal Medicine 07/13/17 documented as of this encounter
--- OUTSIDE RECORDS SUMMARY | 2025-05-11 14:01 | XMS_ITS | Encounter Summary ---
Author Organization [employer] Address [address] [facility] 7t [place] [address] Care Team Providers Care Animal Warden Name Role Phone Shira Miramontes DO Primary Care Provider [phone] Allison Johns PharmD Unavailable [phone] Reason for Visit * Reason Comments Med Refill Encounter Details Date Type Department Care Team ([facility] st Contact Info) Description 10/22/2024 Refill [facility] MEDICINE [address] [place] [address] Shira Miramontes DO [address] [place] [address] Chronic low back pain, unspecified back pain [...] 11:00 AM EDT Office Visit [facility] MEDICINE [address] [place] [address] documented as of this encounter Goals Goal [...] documented as of this encounter Care Teams Animal Warden Relationship Specialty Start Date End Date Shira Miramontes DO [address] [place] [address] PCP - General Family Medicine 01/30/12 Allison Johns PharmD [address] [place] [address] Pharmacist Internal Medicine 04/19/23 01/11/25 documented as of this encounter
--- OUTSIDE RECORDS SUMMARY | 2025-05-11 14:01 | XMS_ITS | Encounter Summary ---
Author Organization [facility] Address [address] [place] [address] Care Team Providers Care Oil Derrick Operator Name Role Phone Adeline Miramontesfer Primary Care Provider Unava ilable Reason for Visit * Reason Comments E-prescribe Rx Request Encounter Details Date Type Department Care Team Description 12/06/2021 Refill Pulmonology - [place] [address] [facility] [address] [place] [phone] Dougie Clark MD [address] [place] [address] E-prescribe Rx Request Social History [...] encounter Miscellaneous Notes * Telephone Encounter - Keshia Shah - 12/06/2021 3:37 PM EDT Patient would like script to be: E-PRESCRIBED/FAXED TO PHARMACY WHEN WAS THE PATIENT'S LAST APPOINTMENT IN ADULT MEDICINE?12/18/2019 WHEN WAS THE LAST TIME THE PATIENT SAW THEIR PCP? Same as above Does patient have an upcoming appointment? No-patient refused appointment, will call back to book appointment (THE MEDICATION REQUESTED IS ON THE MED [...] N/A Patients current insurance carrier is: Payor: [employer] / Plan: [facility] / Product Type: HMO [id number] documented in this encounter Plan of Treatment [...] adult documented in this encounter Care Teams Oil Derrick Operator Relationship Specialty Start Date End Date Shira Miramontes DO PCP - General Internal Medicine 07/13/17 documented as of this encounter
== END 2025-05-11 11:31 | disposition home or self-care (01) ==
LOC: HO.HHCX 11:30
PROVIDERS: PCP Family Medicine; Visit Provider Family Medicine
DX: M65.352 Trigger finger, left little finger (principal)
CPT/HCPCS: 73130

== ENCOUNTER → 2025-05-11 11:53 | Outpatient (BNV) | payer OTHER, SELFPAY | PROVIDERS: PCP Family Medicine; Visit Provider Radiology Diagnostic Radiology | DX: M79.642 Pain in left hand (principal); Z87.81 Personal history of (healed) traumatic fracture | CPT/HCPCS: 73130 ==

== ENCOUNTER 2025-08-16 08:16 | Outpatient (AMB) | payer OTHER, SELFPAY ==
--- NOTE | 2025-08-16 08:42 | MHC.OFFVIS ---
Intake Visit Reasons: New Prob-Left little finger triggered Intake Note: [place] 60 yr old left hand dominant male who is disabled, presents today for a new problem visit for his left little finger. States his finger is catching and locking for the last year and has not improved. States his finger locks randomly during the way, he has pain and discomfort at his palmar MCP of small finger. Denies numbness or tingling in finger. Patient is diabetic states his number are low and is taking a low dose of Trulicity 1x week. Patient would like to discuss surgical intervention. Physical Meteorologist Name: Nancy BRYAN/SHARATH Allergies No Known Allergies (No Known Allergies*) Allergy (Verified 08/16/25 08:49) HPI HPI New Prob-Left little finger triggered: Details: [place] 60 yr old left hand dominant male who is disabled, presents today for a new problem visit for his left little finger. States his finger is catching and locking for the last year and has not improved. States his finger locks in a flexed position over the course of the day, he has pain and discomfort at his palmar MCP of small finger. Denies numbness or tingling in finger. Patient is diabetic states his number are low and is taking a low dose of Trulicity 1x week. Patient would like to discuss surgical intervention. [facility] Medical History Exertional angina Diabetes mellitus Hyperlipidemia HTN (hypertension) Coronary artery arteriosclerosis Surgical History Hx of colonoscopy History of back surgery Hx of cardiac cath Family History Father No problems noted. Mother Breast cancer Social History (Updated 08/16/25 @ 08:50 by RANDI Williamson) Alcohol intake: current Alcohol intake frequency: holidays/special occasions only Patient Tobacco Use Status: Never used Tobacco Current occupational status: disabled Current occupation: left hand Review of Systems Const All systems reviewed & are unremarkable except as noted in HPI and below Physical Exam Extrem Other: Patient is alert, oriented, and in no acute distress. Neuro: Normal sensation of the tips of all digits of the left hand at this time Vascular: Cap refill brisk Pain: Tenderness to palpation of the A1 judi of the left small finger Pain associated with locking and catching of the left small finger ROM: Patient is able to make a closed fist and extend all digits of the left hand fully However, there is visible and palpable locking and catching of the left small finger in a flexed position Skin: No lacerations or abrasions. General: No ecchymosis, erythema, or evidence of infection. Psych: Appears grossly normal Affect normal Attitude cooperative Assessment & Plan Assessment & Plan (1) Trigger finger, left little finger: Code(s): M65.352 - Trigger finger, left little finger Category: Medical Plan 1. Left small finger trigger finger I educated the patient about the condition. I discussed both operative and nonoperative treatment options. The patient would like to proceed with surgery. The risks and benefits of operative treatment were discussed with the patient and the patient wishes to proceed with surgery. These risks include, but are not limited to, risk of damage to blood vessels, nerves, tendons, infection, recurrence, incomplete relief of preoperative symptoms, persistent pain, possible need for further surgery, and the risks associated with regional blocks and/or anesthesia. Plan is to take the patient to the operating room at some point in the next few weeks for the following procedures: 1. Left small finger trigger release under local All of the preoperative paperwork including the consent was discussed today. All of the patient's questions were answered in the clinic today. The patient understands that they will be in contact with our scoop machine operator to discuss scheduling their procedure. Patient reports diabetes, last A1c 6.2 Denies blood thinners, asthma, heart issues, lung issues, kidney issues, or current smoking. Coding Level of Care Code New Pt Level 4 (41161) Diagnoses Trigger finger, left little finger M65.352
--- OUTSIDE RECORDS SUMMARY | 2025-08-16 08:52 | XMS_ITS | Encounter Summary ---
Author Organization [employer] Address [address] [facility] [address] [place] [address] Care Team Providers Care Sulfur Burner Name Role Phone Shira Miramontes DO Primary Care Provider [phone] Allison Johns PharmD Unavailable [phone] Reason for Visit * Reason Comments Med Refill Encounter Details Date Type Department Care Team ([facility] st Contact Info) Description 03/02/2024 Refill [facility] MED [facility] PEDS [address] [place], [place] [phone] Shira Miramontes DO [address] [facility] [place] [address] Chronic bilateral low back pain, unspecified whether [...] on file documented as of this encounter Goals Goal [...] documented as of this encounter Care Teams Sulfur Burner Relationship Specialty Start Date End Date Shira Miramontes DO [address] [place] [address] PCP - General Family Medicine 01/30/12 Allison Johns PharmD [address] [place] [address] Pharmacist Internal Medicine 04/19/23 01/11/25 documented as of this encounter
--- OUTSIDE RECORDS SUMMARY | 2025-08-16 08:52 | XMS_ITS | Encounter Summary ---
Author Organization [employer] Address [address] [facility] [address] [place] [address] Care Team Providers Care Painter Ski Edge Name Role Phone Shira Miramontes DO Primary Care Provider + [phone] Reason for Visit * Reason Comments Med Refill Encounter Details Date Type Department Care Team ([facility] st Contact Info) Description 07/15/2025 Refill [facility] MEDICINE [address] [place], [place] [phone] Shira Miramontes DO [address] [place] [address] Chronic low back pain, unspecified back pain [...] the past 12 months, has t he [employer] gas, oil or water company threatened to [...] Author Hemoglobin A1c < 7 Result Component 6.3(05/11/20 25 10:07 AM EDT) No Jim May, PharmD Help patients manage their type 2 diabetes Care Plan Help patients manage their type 2 diabetes No Herb Nieves Weekly blood pressure task Care Plan Weekly blood pressure task No Herb Nieves Help patients manage their type 2 diabetes Care Plan Help patients manage their type 2 diabetes No Herb Nieves Patient has chronic kidney disease Care Plan Patient has chronic kidney disease No Ashleyzortshannon Providencia Weekly blood pressure task Care Plan Weekly blood pressure task No CeliartHerb ortega Patient has chronic kidney disease Care Plan Patient has chronic kidney disease No CeliartBry ortegancia documented as of this encounter Visit Diagnoses Diagnosis Chronic low back pain, unspecified back pain laterality, unspecified whether sciatica present documented in this encounter Additional Health Concerns Active Problems Noted Date Diagnosed Date Help patients manage their type 2 diabetes 07/15 Weekly blood pressure task 07/15/2025 Help patients manage their type 2 diabetes 07/15 Patient has chronic kidney disease 07/15/2025 Weekly blood pressure task 07/15/2025 Patient has chronic kidney disease 07/15/2025 Assessment Noted Time PHQ-9 Depression Total Score: 10 025 11:25 AM EDT documented as of this encounter Care Teams Painter Ski Edge Relationship Specialty Start Date End Date Shira Miramontes DO [address] [place] [id number] PCP - General Family Medicine 01/30/12 documented as of this encounter
--- OUTSIDE RECORDS SUMMARY | 2025-08-16 08:52 | XMS_ITS | Encounter Summary ---
Author Organization [employer] Address [address] [facility] [address] [place] [address] Care Team Providers Care Machine Mover Name Role Phone Shira Miramontes DO Primary Care Provider [phone] Allison Johns PharmD Unavailable [phone] Reason for Visit * Reason Comments Med Refill Encounter Details Date Type Department Care Team ([facility] st Contact Info) Description 02/24/2024 Refill [facility] MEDICINE [address] [place] [address] Shira Miramontes DO [address] [place] [address] Insomnia, unspecified type Social History Tobacco Use [...] documented as of this encounter Care Teams Machine Mover Relationship Specialty Start Date End Date Shira Miramontes DO [address] [place] [address] PCP - General Family Medicine 01/30/12 Allison Johns PharmD [address] [place] [address] Pharmacist Internal Medicine 04/19/23 01/11/25 documented as of this encounter
--- OUTSIDE RECORDS SUMMARY | 2025-08-16 08:53 | XMS_ITS | Encounter Summary ---
Author Organization [employer] Address [address] [facility] [address] [place] [address] Care Team Providers Care Director Intelligence Analysis Programs Name Role Phone Shira Miramontes DO Primary Care Provider [phone] Jim May PharmD Unavailable Unavail able Allison Johns PharmD Unavailable [phone] Reason for Visit * Reason Comments Med Refill Encounter Details Date Type Department Care Team (Late st Contact Info) Description 02/21/2023 Refill [facility] MEDICINE [address] [place] [address] Shira Miramontes DO [address] [place] [address] Social History Tobacco Use Types Packs/Day Years [...] Result Component 6.3(05/11/2025 10:07 AM EDT) No Dellogono, Jim, PharmD documented as of this encounter Visit Diagnoses Not on filedocumented in this encounter Additional Health Concerns Assessment Noted Time PHQ-9 Depression Total Score: 9 09/28/19 23 9:13 AM EST documented as of this encounter Care Teams Director Intelligence Analysis Programs Relationship Specialty Start Date End Date Shira Miramontes DO [address] [place] [address] PCP - General Family Medicine 01/30/12 Jim May, PharmD [address] [place] [address] Pharmacist Internal Medicine 09/12/22 04/18/23 Allison Johns PharmD [address] [place] [address] Pharmacist Internal Medicine 04/19/23 01/11/25 documented as of this encounter
--- OUTSIDE RECORDS SUMMARY | 2025-08-16 08:53 | XMS_ITS | Clinical Summary ---
Author Organization [employer] Address [address] [place] [address] [address] [place] [address] Care Team Providers Care Sebd Teacher Name Role Phone Fe Shira Primary Care Provider + [phone] Allergies No known active allergies Medications * [...] each dose 2 each 2 024 Active baclofen (Lioresal) 10 MG tablet Take 1 tablet (10 mg) by mouth if needed in the morning, at noon, and at bedtime for muscle spasms. 60 tablet 3 024 Active Diclofenac Sodium 1 % gel Apply 2 g topically if needed in the morning, at noon, in the evening, and at bedtime (pain). 150 g 3 024 Active atorvastatin (Lipitor) 80 MG tabletIndication s:Other hyperlipidemia TAKE 1 TABLET BY MOUTH AT BEDTIME 90 tablet 1 024 Active ranolazine (Ranexa) 1000 MG 12 hr tablet Take 1,000 mg by mouth 2 times daily. 025 Active nitroglycerin (Nitrostat) 0.[address] 1 tablet (0.4 mg) under the tongue every 5 (five) minutes if needed for chest pain. place 1 tablet by sublingual route at the 1st sign of attack 90 tablet 1 025 Active Aspirin EC Adult Low Dose 81 MG EC tablet TAKE 1 TABLET BY MOUTH EVERY MORNING 90 tablet 1 025 Active Trulicity 1.5 MG/0.5ML solution auto-injectorInd ications:Type 2 diabetes mellitus without complication, without long-term current use of insulin ([facility]) INJECT ONE PEN (=1.5MG) SUBCUTANEOUSLY ONCE A WEEK DIRECTED 2 mL 11 08/02/20 25 2:35 PM EST 025 Active capsaicin (Capzasin-HP) 0.1 % creamIndications [...] AT BEDTIME 90 tablet 3 025 Active rOPINIRole (Requip) 1 MG tablet TAKE 1 TABLET BY MOUTH AT BEDTIME 90 tablet 1 025 Active albuterol (Ventolin HFA) 108 (90 Base) MCG/ACT inhaler INHALE 2 PUFFS BY MOUTH EVERY 4 HOURS NEEDED FOR WHEEZING OR SHORTNESS OF BREATH 18 g 2 025 Active Alcohol Swabs (Alcohol Prep) 70 % padsIndications: Type 2 diabetes mellitus without complication, without long-term current use of insulin ([facility]) TEST BLOOD SUGAR TWICE DAILY 100 each 11 025 Active glucose blood (FREESTYLE LITE) test stripIndications :Type 2 diabetes mellitus without complication, without long-term current use of insulin ([facility]) TEST BLOOD SUGAR TWICE DAILY 100 strip 11 08/02/20 25 2:35 PM EST 025 Active TRUEplus Lancets 33G miscIndications: Type 2 diabetes mellitus without complication, without long-term current use of insulin ([facility]) TEST BLOOD SUGAR TWICE DAILY 100 each 11 08/02/20 25 2:35 PM EST 025 Active oxyCODONE-acetam inophen (Percocet) 5-325 MG tabletIndication s:Chronic low back pain, unspecified back pain laterality, unspecified whether sciatica present TAKE 1 TABLET BY MOUTH EVERY 6 HOURS NEEDED FOR SEVERE PAIN 112 tablet 08/02/20 25 2:35 PM EST 025 Active cetirizine (ZyrTEC) 10 MG tablet TAKE 1 TABLET BY MOUTH EVERY EVENING 90 tablet 1 025 Active sertraline (Zoloft) 100 MG tabletIndication s:Depression, unspecified depression type TAKE 2 TABLETS BY MOUTH ONCE DAILY IN THE MORNING 180 tablet 1 Active amitriptyline (Elavil) 10 MG tabletIndication s:Chronic bilateral low back pain, unspecified whether sciatica present TAKE 1 TABLET BY MOUTH AT BEDTIME 30 tablet 5 Active cetirizine (ZyrTEC) 10 MG tablet TAKE 1 TABLET BY MOUTH EVERY EVENING 90 tablet 1 025 2024 Discontinued sertraline (Zoloft) 100 MG tabletIndication s:Depression, unspecified depression type TAKE 2 TABLETS BY MOUTH ONCE DAILY IN THE MORNING 180 tablet 1 025 2024 Discontinued amitriptyline (Elavil) 10 MG tabletIndication s:Chronic bilateral low back pain, unspecified whether sciatica present TAKE 1 TABLET BY MOUTH AT BEDTIME 30 tablet 5 08/02/20 25 2:35 PM EST 025 2024 Discontinued(R eorder (will not trigger notification to Pharmacy)) oxyCODONE-acetam inophen (Percocet) 5-325 MG tabletIndication s:Chronic low back pain, unspecified back pain laterality, unspecified whether sciatica present TAKE 1 TABLET BY MOUTH EVERY 6 HOURS NEEDED FOR SEVERE PAIN 112 tablet 025 2024 Discontinued Active Problems Problem Noted Date Diagnosed Date Long-term current use of opiate analgesic 2024 Overview (05/25/2025): Medication: Percocet 5-325mg Q6H PRN Indication: chronic low back s/p L4-5 decompression/fusion, lumbar disc herniation Last [employer] Agreement: 02/09/25 Tier 2 ([employer] Q3mo) - last evaluated by PCP in January 2025 Assessment & Plan (05/25/2025 1:53 PM EDT): Timeline: - 11/24/24: Group - utox/pill count as expected - 02/09/25: Group - utox/pill count as expected - 04/27/25: Group - utox/pill count as expected - 05/25/25: Group - utox/pill count as expected Assessment & Plan (04/27/2025 2:15 PM EDT): [...] low back pain 09/28/2022 Assessment & Plan (05/25/2025 1:53 PM EDT): -Good engagement and participation with Group Medical Visit model -Encouraged multifactorial approach to pain control including pharm and non- pharm modalities -Pill count and utox as expected (approx 40 pills excess compared to expected. Consider discussion of decrease in frequency) Assessment & Plan (04/27/2025 2:15 PM EDT): [...] -UTOX as expected. Pill count abnormal. See hogshead mat inspector, message sent to PCP by RN. Obstructive [...] organization. Date Type Department Care Team Description 08/06/2025 Refill [facility] [address] [place] [address] Shira Miramontes, Chronic bilateral low back pain, unspecified whether sciatica present 08/05/2025 Refill [facility] [address] [place] [address] Shira Miramontes DO Depression, unspecified depression type; Chronic bilateral low back pain, unspecified whether sciatica present 07/28/2025 Refill [facility] [address] [place] [address] Shira Miramontes, Chronic low back pain, unspecified back pain laterality, unspecified whether sciatica present 07/19/2025 Orders Only [facility] [address] [place] [address] Shira Miramontes DO Chronic low back pain, unspecified back pain laterality, unspecified whether sciatica present (Primary Dx) 07/15/2025 Telephone [facility] [address] [place] [address] Shira Miramontes DO 07/15/2025 Refill [facility] [address] [place] [address] Shira Miramontes DO Chronic low back pain, unspecified back pain laterality, unspecified whether sciatica present 06/23/2025 Refill [facility] [address] [place] [address] Shira Miramontes, Type 2 diabetes mellitus without complication, without long-term current use of insulin (HCC); Chronic low back pain, unspecified back pain laterality, unspecified whether sciatica present 06/07/2025 Telephone [facility] [address] [place] [address] Shira Miramontes DO 06/04/2025 Refill [facility] [address] [place] [address] Shira Miramontes DO 05/25/2025 11:00 AM EDT Office Visit [facility] [address] [place] [address] Antoinette Gabriel, PAPER PATTERN INSPECTOR Chronic low back pain, unspecified back pain laterality, unspecified whether sciatica present (Primary Dx); Long-term current use of opiate analgesic 05/25/2025 Travel 05/18/2025 Travel from Last 3 Months Immunizations Immunization Administration [...] 05/11/2025 10:03 AM EDT Plan of Treatment Health Maintenance Due Date Last Done Comments CT Colonography 1963 FIT DNA/Cologuard 1963 FIT 1963 FOBT 1963 Sigmoidoscopy 1963 Diabetes: Foot Exam 1973 Eye Exam 1973 Colonoscopy 01/05/2024 01/04/2014 Colorectal Cancer Screening 01/05/2024 COVID-19 Vaccine ( season) 2025 06/29/2024, 09/12/2022, 01/30/2022, Additional history exists Influenza Vaccine (#1) 2025 , 07/18/2023, 07/10/2022, Additional history exists Diabetes: Urine Protein Screening 07/15/2025 07/15/2024, 04/29/2023, 07/10/2022, Additional history exists Lipid Panel 07/15/2025 07/15/2024, 04/03, 07/10/2022, Additional history exists Depression Monitoring 11/08/2025 05/11/2025, 025 Diabetes: Hemoglobin A1C 11/08/2025 025, 07/15/2024, 06/29/2024, Additional history exists SDOH Screening 04/30/2026 04/30/2025 Alcohol/Substance Use Screening 05/11/2026 05/11/2025 Tobacco Screening 05/11/2026 05/11/2025 Disability Screening 05/18/2026 05/18/2025 DTaP/Tdap/Td Vaccines (4 - Td or Tdap) 05/02/2032 05/02/2022, 01/30/2012, 01/01/2012 Hepatitis B Vaccines Completed 02/07/2016, 05/30/2015, 01/27/2015 Zoster Vaccines Completed 11/07/2020, 09/07/2020 Pneumococcal Vaccine: 50+ Years Completed 04/19/2023, 03/01/2015, 01/31/2015, Additional history exists RSV Patients and Patients Aged 60 years or older Completed 10/28/2023 HIV Screening Completed 07/15/2024, 04/03, 07/10/2022, Additional [...] Hemoglobin A1c < 7 Result Component 6.3(05/11/20 10:07 AM EDT) No Jim May, PharmD Help patients manage their type 2 diabetes Care Plan Help patients manage their type 2 diabetes No Vazquezortiz, Providencia Weekly blood pressure task Care Plan Weekly blood pressure task No Vazquezortiz, Providencia Help patients manage their type 2 diabetes Care Plan Help patients manage their type 2 diabetes No Vazquezortiz, Providencia Patient has chronic kidney disease Care Plan Patient has chronic kidney disease No Vazquezortiz, Providencia Weekly blood pressure task Care Plan Weekly blood pressure task No Vazquezortiz, Providencia Patient has chronic kidney disease Care Plan Patient has chronic kidney disease No Vazquezortiz, Providencia Weekly blood pressure task Care Plan Weekly blood pressure task No Shira Miramontes DO Weekly blood pressure task Care Plan Weekly blood pressure task No Shira Miramontes DO Patient has chronic kidney disease Care Plan Patient has chronic kidney disease No Shira Miramontes DO Patient has chronic kidney disease Care Plan Patient has chronic kidney disease No Shira Miramontes DO Weekly blood pressure task Care Plan Weekly blood pressure task No Bijal Nation RN Weekly blood pressure task Care Plan Weekly blood pressure task No Bijal Nation RN Patient has chronic kidney disease Care Plan Patient has chronic kidney disease No Bijal Nation RN Patient has chronic kidney disease Care Plan Patient has chronic kidney disease No Bijal Nation RN Weekly blood pressure task Care Plan Weekly blood pressure task No Rajni Sanders RN Weekly blood pressure task Care Plan Weekly blood pressure task No Rajni Sanders RN Patient has chronic kidney disease Care Plan Patient has chronic kidney disease No Rajni Sanders RN Patient has chronic kidney disease Care Plan Patient has chronic kidney disease No Rajni Sanders RN Weekly blood pressure task Care Plan Weekly blood pressure task No Shira Childs LPN Weekly blood pressure task Care Plan Weekly blood pressure task No Shira Childs LPN Patient has chronic kidney disease Care Plan Patient has chronic kidney disease No Shira Childs LPN Patient has chronic kidney disease Care Plan Patient has chronic kidney disease No Shira Childs LPN Procedures Procedure Name Priority Date/Time Associated Diagnosis Comments POCT DESTINEY-14 URINE DRUG SCREEN Routine 05/25/2025 11:24 AM EDT Chronic low back pain, unspecified back pain laterality, unspecified whether sciatica present Long-term current use of opiate analgesic POCT GLYCATED HEMOGLOBIN, TOTAL Routine 05/11/2025 10:07 AM EDT Type 2 diabetes mellitus without complication, without long-term current use of insulin ([facility]/HCC) HEPATITIS C AB W/REFL TO HCV RNA, [...] complication, without long-term current use of insulin ([facility]) HM COLONOSCOPY Routine 01/04/2014 11:42 AM EDT from Last 3 Months or Most Recently Relevant to Health Maintenance Results * POCT DESTINEY-14 Urine Drug Screen (05/25/2025 11:24 AM EDT) THC Negative Negative Cocaine Screen, Urine Negative Negative Opiate Screen, Urine Negative Negative Methamphetamine Screen Urine Negative Negative Amphetamine Screen, Urine Negative Negative Benzodiazepines Screen, Urine Negative Negative Barbiturate Screen, Urine Negative Negative Methadone Screen, Urine Negative Negative Buprenophine Screen, Urine Negative Negative TCA, Urine Positive Negative MDMA Urine Negative Negative ng/mL Oxycodone Screen, Urine Positive Negative Phencyclidine (PCP), Urine Negative Negative Propoxyphene, Urine Negative Negative Fentanyl, Urine Negative Negative Urine Urine specimen obtained by clean catch procedure / Unknown 05/25/2025 11:24 AM EDT Bijal Israel RN - 05/25/2025 11:24 AM EDT UTOX cup Lot#[id number] Exp. 06/08/26 Internal Pass Control Antoinette RHOADES POINT OF CARE TEST ENTER/EDIT ORDERABLES Final Result * (ABNORMAL) POCT Hgb A1c (05/11/2025 10:07 AM EDT) Hemoglobin A1C 6.3(A) 4.0 - 5.7 % QC Media Lot # [id number] Lot# Expiration Date [id number] Blood 05/11/2025 10:0 7 AM EDT Shira Miramontes DO POINT OF CARE TEST ENTER/ROSARIO T ORDERABLES Final Result * Albumin, Random Urine W/Creatinine (07/15/2024 8:33 AM EST) Creatinine, Urine 181.01 mg/dL [facility] Microalbumin Urine 8.0 mg/L [facility] Microalbum Creatinine Ratio Ur 4.4 <30 ug/mg cr [facility] Comment:Albumin/Creatinine R atio Reference Ranges: Normal: < 30 ug/mg creatinine Microalbuminuria: 30 - 300 ug/mg creatinineClinical Albuminuria: > 300 ug/mg creatinine Urine (Urine, Random) 07/15/2024 8:33 AM EST 07/15/2024 10:47 AM EST Shira Fe LAB URINE ORDERABLES Final R esult Performing Organization Address [facility] Co de Phone Number [facility] [address] [place] [phone] * Hepatitis C Antibody with Reflex to HCV, RNA, Quantitative, Real-Time PCR (07/15/2024 8:33 AM EST) Hepatitis C Antibody Nonreactive Nonreactive [facility] Comment:Antibodies to HCV no t detected; does not exclude early acuteHCV infection. Blood Venous blood specimen / Unknown 07/15/2024 8:33 AM EST 07/15/2024 10:51 AM EST Shira Fe MILAN LAB BLOOD ORDERABLES Final R esult Performing Organization Address [facility] de Phone Number [facility] [address] [place] [phone] * HIV-1/2 Antigen and Antibodies, Fourth Generation, with Reflexes (07/15/2024 8:33 AM EST) HIV AB/AG Nonreactive Nonreactive [facility] Comment:HIV-1 p24 Ag and/or HIV-1/HIV-2 Ab not detected.A test result that is nonreactive does not exclude thepossibility of exposure to or infection with HIV-1 and/orHIV-2. Nonreactive results in this assay for individualswith prior exposure to HIV-1 and/or HIV-2 may be due toantigen and antibody levels that are below the limit ofdetection of this assay.The [employer] HIV Ag/Ab Combo assay result andsupplemental assay results should be interpreted inconjunction with the patient's clinical presentation,history and other laboratory results. If the results areinconsistent with clinical evidence, additional testing issuggested to confirm the result. Blood Venous blood specimen / Unknown 07/15/2024 8:33 AM EST 07/15/2024 10:51 AM EST Shira Miramontes DO LAB BLOOD ORDERABLES Final R esult Performing Organization Address [facility] Co de Phone Number [facility] [address] [place] [phone] [phone] * (ABNORMAL) Lipid Panel, Standard (07/15/2024 8:33 AM EST) Triglycerides 159(H) <150 mg/dL [facility] Comment:Desirable Triglyceri de: less than 150 mg/dLBorderline High Triglyceride 150-199 mg/dLHigh Triglyceride: 200-499 mg/dLVery High Triglyceride: greater than or equal to 5OO mg/dL Cholesterol 110 <200 mg/dL [facility] Comment:Desirable Cholestero l: less than 200 mg/dLBorderline High Cholesterol: 200-239 mg/dLHigh Cholesterol: greater than 239 mg/dL LDL Cholesterol Calculated 48 <100 mg/dL [facility] Comment:Desirable LDL: less than 100 mg/dLNear Optimal/Above Optimal LDL: 110- 129 mg/dLBorderline High LDL: 130-159 mg/dLHigh LDL: 160-189 mg/dLVery High LDL: greater than or equal to 190 mg/dL HDL Cholesterol 31(L) >40 mg/dL [facility] Comment:Desirable HDL: great er than 40 mg/dL Note: This HDL assay may give artificially low results in patients with liver disease. Blood Venous blood specimen / Unknown 07/15/2024 8:33 AM EST 07/15/2024 10:51 AM EST Shira Miramontes DO LAB BLOOD ORDERABLES Final R esult Performing Organization Address City/[facility]/ZIP Co de Phone Number [facility] [address] [place] [phone] * Hm Colonoscopy (01/04/2014 11:42 AM EDT) us Historical Provider MD HEALTH MAINTENANCE Final Result from Last 3 Months or Most Recently Relevant to Health Maintenance Additional Health Concerns Active Problems Noted Date Diagnosed Date Help patients manage their type 2 diabetes 07/15 Weekly blood pressure task 07/15/2025 Help patients manage their type 2 diabetes 07/15 Patient has chronic kidney disease 07/15/2025 Weekly blood pressure task 07/15/2025 Patient has chronic kidney disease 07/15/2025 Weekly blood pressure task 07/19/2025 Weekly blood pressure task 07/19/2025 Patient has chronic kidney disease 07/19/2025 Patient has chronic kidney disease 07/19/2025 Weekly blood pressure task 07/20/2025 Weekly blood pressure task 07/20/2025 Patient has chronic kidney disease 07/20/2025 Patient has chronic kidney disease 07/20/2025 Weekly blood pressure task 07/28/2025 Weekly blood pressure task 07/28/2025 Patient has chronic kidney disease 07/28/2025 Patient has chronic kidney disease 07/28/2025 Weekly blood pressure task 08/06/2025 Weekly blood pressure task 08/06/2025 Patient has chronic kidney disease 08/06/2025 Patient has chronic kidney disease 08/06/2025 Insurance [facility] < 65 [place] [id number] Care Teams Sebd Teacher Relationship Specialty Start Date End Date Shira Miramontes DO [address] [place] [address] PCP - General Family Medicine 01/30/12
--- OUTSIDE RECORDS SUMMARY | 2025-08-16 08:53 | XMS_ITS | Encounter Summary ---
Author Organization [employer] Address [address] [facility] [address] [place] [address] Care Team Providers Care Distributor Operator Name Role Phone Shira Miramontes DO Primary Care Provider [phone] Allison Johns PharmD Unavailable [phone] Reason for Visit * Reason Comments Med Refill Encounter Details Date Type Department Care Team ([facility] st Contact Info) Description 10/22/2024 Refill [facility] [address] [place] [address] Shira Miramontes DO [address] [place] [address] Chronic low back pain, unspecified back pain [...] documented as of this encounter Care Teams Distributor Operator Relationship Specialty Start Date End Date Shira Miramontes DO [address] [place] [address] PCP - General Family Medicine 01/30/12 Allison Johns PharmD [address] [place] [address] Pharmacist Internal Medicine 04/19/23 01/11/25 documented as of this encounter
--- OUTSIDE RECORDS SUMMARY | 2025-08-16 08:53 | XMS_ITS | Clinical Summary ---
Author Organization [facility] Prior to 01/30/25 Address [address] [place] [address] Care Team Providers Care Tax Appraiser Name Role Phone Shira Miramontes DO Primary [...] age to complete this topic Care Teams Tax Appraiser Relationship Specialty Start Date End Date Shira Miramontes DO [address] [place] [phone] PCP - General Family Medicine 05/10/17
--- OUTSIDE RECORDS SUMMARY | 2025-08-16 08:53 | XMS_ITS | Encounter Summary ---
Author Organization [employer] Address [address] [facility] [address] [place] [address] Care Team Providers Care Service Girl Name Role Phone Shira Miramontes DO Primary Care Provider [phone] Allison Johns PharmD Unavailable [phone] Reason for Visit * Reason Comments Med Refill Encounter Details Date Type Department Care Team ([facility] st Contact Info) Description 02/22/2024 Refill [facility] [address] [place] [address] Shira Miramontes DO [address] [place] [address] Social History Tobacco Use Types Packs/Day Years [...] documented as of this encounter Care Teams Service Girl Relationship Specialty Start Date End Date Shira Miramontes DO [address] [place] [address] PCP - General Family Medicine 01/30/12 Allison Johns PharmD [address] [place] [address] Pharmacist Internal Medicine 04/19/23 01/11/25 documented as of this encounter
--- OUTSIDE RECORDS SUMMARY | 2025-08-16 08:53 | XMS_ITS | Encounter Summary ---
Author Organization [employer] Address [address] [facility] [address] [place] [address] Care Team Providers Care Clipper Operator Name Role Phone Shira Miramontes DO Primary Care Provider [phone] Allison Johns PharmD Unavailable [phone] Reason for Visit * Reason Comments Med Refill Encounter Details Date Type Department Care Team ([facility] st Contact Info) Description 12/21/2024 Refill [facility] MED[facility] [address] [place] [address] Shira Miramontes DO [address] [place] [address] Social History Tobacco Use Types Packs/Day Years [...] the past 12 months, has t he [employer], gas, oil or water company threatened to [...] documented as of this encounter Care Teams Clipper Operator Relationship Specialty Start Date End Date Shria Miramontes DO [address] [place] [address] PCP - General Family Medicine 01/30/12 Allison Johns PharmD [address] [place] [address] Pharmacist Internal Medicine 04/19/23 01/11/25 documented as of this encounter
--- OUTSIDE RECORDS SUMMARY | 2025-08-16 08:53 | XMS_ITS | Encounter Summary ---
Author Organization [employer] Address [address] [place] [address] [address] [place] [address] Care Team Providers Care Axle Inspector Name Role Phone FredericShira jones Primary Care Provider [phone] Allison Johns PharmD Unavailable [phone] Encounter Details Date Type Department Care Team (Late st Contact Info) Description 04/19/2023 Abstract [facility] MED[facility]INE [address] [place] [address] Allison Johns, PharmD [address] [place] [address] Social History Tobacco Use Types Packs/Day Years [...] documented as of this encounter Care Teams Axle Inspector Relationship Specialty Start Date End Date Shira Miramontes DO [address] [place] [address] PCP - General Family Medicine 01/30/12 Allison Johns PharmD [address] [place] [address] Pharmacist Internal Medicine 04/19/23 01/11/25 documented as of this encounter
--- OUTSIDE RECORDS SUMMARY | 2025-08-16 08:53 | XMS_ITS | Clinical Summary ---
Author Organization [facility] Address [address] [place] [address] Phone Care Team Providers Care Zoology Professor Name Role Phone Shira Miramontes DO Primary Care Provider [phone]- [phone] Medications Trelegy Ellipta 100-62.5-25 mcg inhalerIndicatio ns:Obstructive sleep apnea (adult) (pediatric),Security Officer Supervisor hudson obstructive pulmonary disease, unspecified ([facility] V24, [facility] V28) INHALE 1 PUFF EVERY DAY AT THE SAME TIME 60 each 08/12/2024 Active Surgical History Surgery Date Site/Laterality Comments COLONOSCOPY 12/2013 PROCEDURE: HISTORICAL COLONOSCOPY; COMMENT: Hyperplastic Polyp BACK SURGERY 2016 PROCEDURE: HISTORICAL BACK SURGERY Medical History Medical History Date Comments COPD (chronic obstructive pu lmonary disease) ([facility] V24, [facility] V28) 07/09/2017 DX:COPD (chronic o bstructive pulmonary disease) ([facility]) RENEE (obstructive sleep apnea) 07/09/2017 DX :RENEE (obstructive sleep apnea); COMMENT: CPAP Hyperlipidemia 07/09/2017 DX:Hyperlipidemi a Hypertension 07/09/2017 DX:Hypertension CAD (coronary artery disease) 07/09/2017 DX :CAD (coronary artery disease); COMMENT: 11/2015 Nuclr. Strss Tst- Inferior Ischemia Pulmonary asbestosis ([facility] V[facility], [facility] V28) 07/09/2017 DX:Pulmonary asbestosis ([facility] ) Depression 07/09/2017 DX:Depression Protrusion of lumbar interve rtebral disc 07/09/2017 DX:Protrusion of lumbar intervertebral disc; COMMENT: Scheduled for L4-5 discectomy & fusion April 2017 Diabetes mellitus type 2, uncomplicated ([facility] V24, [facility] V28) 07/09/2017 DX:Diabetes mellitus type 2, uncomplicated ([facility]) Hyperplastic colon polyp 07/09/2017 DX:Hype rplastic colon [...] on file Sexual Orientation Not on file Last Filed Vital Signs [...] Health Maintenance Due Date Last Done Comments Colorectal Cancer Screening: Colonoscopy 1963 Diabetes: Annual Foot Exam 1973 Diabetes: Annual Retina Eye Exam 1973 Medicare Annual Wellness Visit 08/05/2022 Social Influencers of Health Screening 08/05/2022 Diabetes: Annual Urine Albumin-Creatinine Ratio (uACR) 08/17/2022 Depression Screening 09/02/2024 Diabetes: Blood Sugar Control Test (HGBA1C) 01/12/2025 07/15/2024 COVID-19 Vaccine ( season) 2025 06/29/2024, 09/12/2022, [...] exists RSV Immunization Adult Patients Completed 10/28/2023 HIV Screening Completed 07/15/2024 Hepatitis C Screening [...] patient's age to complete this topic Insurance [facility] MEDICARE Member Subscriber Plan / Payer (Ef fective 2019-Present) Name:Chino Bo Relation to Subscriber:Self Name:Chino Bo Payer ID:[id number] Group ID:[id number] Type:Not on file Address: [place] [address] [address] [id number] Care Teams Zoology Professor Relationship Specialty Start Date End Date Shira Miramontes DO [address] [place], [place] PCP - General Internal Medicine 07/13/17
--- OUTSIDE RECORDS SUMMARY | 2025-08-16 08:53 | XMS_ITS | Encounter Summary ---
Author Organization [facility] Address [address] [place] [address] 7 [place] [address] Care Team Providers Care Educational Aid Name Role Phone Shira Miramontes DO Primary Care Provider [phone]- [phone] Jim May PharmD Unavailable Unavail able Allison Johns PharmD Unavailable [phone] Reason for Visit * Reason Comments Med Refill Encounter Details Date Type Department Care Team (Late st Contact Info) Description 08/10/2022 Refill [facility] [address] [place] [address] Shira Miramontes DO [address] [place], [place] [phone] Social History Tobacco Use Types Packs/Day Years [...] on filedocumented in this encounter Care Teams Educational Aid Relationship Specialty Start Date End Date Shira Miramontes DO [address] [place] [address] PCP - General Family Medicine 01/30/12 Jim May, PharmD [address] [place] [address] Pharmacist Internal Medicine 09/12/22 04/18/23 Allison Johns, PharmD [address] [place] [address] [place] Brannon [address] Pharmacist Internal Medicine 04/19/23 01/11/25 documented as of this encounter
--- OUTSIDE RECORDS SUMMARY | 2025-08-16 08:53 | XMS_ITS | Encounter Summary ---
Author Organization [employer] Address [address] [facility] 7t [place] [address] Care Team Providers Care Theatrical Trouper Name Role Phone Shira Miramontes DO Primary Care Provider [phone]- [phone] Allison Johns PharmD Unavailable [phone] Reason for Visit * Reason Comments Med Refill Encounter Details Date Type Department Care Team ([facility] st Contact Info) Description 07/10/2024 Refill [facility] [address] [place] [address] Shira Miramontes DO 230 [facility] [place] [address] Chronic low back pain, unspecified back pain [...] 6.3(05/11/2025 10:07 AM EDT) No Jim May, Juanito documented as of this encounter Visit Diagnoses Diagnosis Chronic low back pain, unspecified back pain laterality, unspecified whether sciatica present documented in this encounter Additional Health Concerns Assessment Noted Time PHQ-9 Depression Total Score: 1 02/12/20 24 9:59 AM EDT documented as of this encounter Care Teams Theatrical Trouper Relationship Specialty Start Date End Date Shira Miramontes DO [address] [place] [address] PCP - General Family Medicine 01/30/12 Allison Johns PharmD [address] [place] [address] Pharmacist Internal Medicine 04/19/23 01/11/25 documented as of this encounter
--- OUTSIDE RECORDS SUMMARY | 2025-08-16 08:53 | XMS_ITS | Encounter Summary ---
Author Organization [employer] Address [address] [facility] 7t [place] [address] Care Team Providers Care Field Artillery Cannoneer Name Role Phone FeShira Primary Care Provider [phone] Allison Johns PharmD Unavailable [phone] Reason for Visit * Reason Comments Med Refill Encounter Details Date Type Department Care Team ([facility] st Contact Info) Description 06/28/2023 Refill [facility] [address] [place] [address] Keren Carty MD [address] [place] [address] Chronic bilateral low back pain, unspecified whether [...] documented as of this encounter Care Teams Field Artillery Cannoneer Relationship Specialty Start Date End Date Shira Miramontes DO [address] [place] [address] PCP - General Family Medicine 01/30/12 Allison Johns PharmD [address] [place] [address] Pharmacist Internal Medicine 04/19/23 01/11/25 documented as of this encounter
--- OUTSIDE RECORDS SUMMARY | 2025-08-16 08:53 | XMS_ITS | Encounter Summary ---
Author Organization [employer] Address [address] [facility] 7t [place] [address] Care Team Providers Care Master Barber Name Role Phone Shira Miramontes DO Primary Care Provider + [phone] Allison Johns PharmD Unavailable [phone] Encounter Details Date Type Department Care Team (Late st Contact Info) Description 12/11/2023 Orders Only [facility] [address] [place] [address] ProviderLu MD Social History Tobacco Use Types [...] May PharmD documented as of this encounter Procedures Procedure Name Priority Date/Time Associated Diagnosis Comments HM COLONOSCOPY Routine 01/04/2014 11:42 AM EDT documented in this encounter Results * Hm Colonoscopy (01/04/2014 11:42 AM EDT) Historical Provider HEALTH MAINTENANCE Final Result documented in this encounter Visit Diagnoses Not on filedocumented in this encounter Additional Health Concerns Assessment Noted Time PHQ-9 Depression Total Score: 9 09/28/19 23 9:13 AM EST documented as of this encounter Care Teams Master Barber Relationship Specialty Start Date End Date Shira Miramontes DO [address] [place] [address] PCP - General Family Medicine 01/30/12 Allison Johns PharmD [address] [place] [address] Pharmacist Internal Medicine 04/19/23 01/11/25 documented as of this encounter
--- OUTSIDE RECORDS SUMMARY | 2025-08-16 08:53 | XMS_ITS | Encounter Summary ---
Author Organization [employer] Address [address] [facility] 7t [place] [address] Care Team Providers Care Food Cooking Machine Operator Name Role Phone Shira Miramontes DO Primary Care Provider [phone]- [phone] Jim May PharmD Unavailable Unavail able lAlison Johns PharmD Unavailable Reason for Visit * Reason Comments Med Refill Encounter Details Date Type Department Care Team (Late st Contact Info) Description 01/17/2023 Refill [facility] [address] [place] [address] Shira Miramontes DO [address] [place], [place] [phone] Chronic bilateral low back pain, unspecified whether [...] documented as of this encounter Care Teams Food Cooking Machine Operator Relationship Specialty Start Date End Date Shira Miramontes DO [address] [place] [address] PCP - General Family Medicine 01/30/12 Jim May, JanaD [address] [place] [address] Pharmacist Internal Medicine 09/12/22 04/18/23 Allison Johns PharmD [address] [place] [address] Pharmacist Internal Medicine 04/19/23 01/11/25 documented as of this encounter
--- OUTSIDE RECORDS SUMMARY | 2025-08-16 08:53 | XMS_ITS | Encounter Summary ---
Author Organization [employer] Address [address] [facility] 7t [place] [address] Care Team Providers Care Lithographic Plate Maker Name Role Phone Shira Miramontes DO Primary Care Provider [phone] Allison Johns PharmD Unavailable [phone] Encounter Details Date Type Department Care Team (Late st Contact Info) Description 10/06/2024 Orders Only [facility] [address] [place] [address] Provider, MD Lu Social History Tobacco Use [...] documented as of this encounter Care Teams Lithographic Plate Maker Relationship Specialty Start Date End Date Shira Miramontes DO [address] [place], [place] [id number] PCP - General Family Medicine 01/30/12 Allison Johns PharmD [address] [place] [address] Pharmacist Internal Medicine 04/19/23 01/11/25 documented as of this encounter
--- OUTSIDE RECORDS SUMMARY | 2025-08-16 08:53 | XMS_ITS | Encounter Summary ---
Author Organization [employer] Address [address] [facility] 7t [place] [address] Care Team Providers Care Food Service Worker Name Role Phone FeShira Primary Care Provider [phone] Allison Johns PharmD Unavailable [phone] Reason for Visit * Reason Comments Med Refill Encounter Details Date Type Department Care Team ([facility] st Contact Info) Description 07/03/2023 Refill [facility] [address] [place] [address] Keren Carty MD [address] [place] [address] Chronic bilateral low back pain, unspecified whether [...] as of this encounter Care Teams Food Service Worker Relationship Specialty Start Date End Date Shira Miramontes DO [address] [place] [address] PCP - General Family Medicine 01/30/12 Allison Johns PharmD [address] [place] [address] Pharmacist Internal Medicine 04/19/23 01/11/25 documented as of this encounter
== END 2025-08-16 09:17 | disposition home or self-care (01) ==
LOC: HO.HOS 08:17
PROVIDERS: PCP Family Medicine
DX: M65.352 Trigger finger, left little finger (principal)
CPT/HCPCS: 99204

== ENCOUNTER → 2025-08-16 08:16 | Outpatient (BNVA) | payer OTHER, SELFPAY | PROVIDERS: PCP Family Medicine | DX: M65.352 Trigger finger, left little finger (principal); E11.9 Type 2 diabetes mellitus without complications; Z79.85 Long-term (current) use of injectable non-insulin antidiabetic drugs | CPT/HCPCS: 99202 ==

== ENCOUNTER 2025-08-24 10:19 | Outpatient (REF) | payer OTHER, SELFPAY ==
--- NOTE | ~2025-08-24 | CT_ITS ---
CLINICAL HISTORY: s p L4-5 decompression fusion APR [address] lumbar spine without contrast Comparison: CT - CT LUMBAR SPINE WITHOUT IV CONTRAST - 10/20/20 12:51 EST Findings: Normal vertebral body alignment. There are bilateral transpedicular screws and posterior fusion at L4 and L5. Interbody fusion present at L4-5. No evidence of hardware fracture or loosening. Mild anterior wedging which appears chronic of T12 and L1. Degenerative changes are described level by level: T12-L1: Normal L1-L2: Normal L2-L3: There is a circumferential disc bulge with posterior calcification of the disc. Moderate facet arthrosis present. Ligamentum flavum hypertrophy present. This results in nzpa-jy-stbexzey canal stenosis with the AP diameter of 8 mm. There is moderate bilateral foraminal narrowing. L3-4: Mild circumferential disc bulge. Moderately severe facet arthrosis. There is szqj-xa-mjevzmil canal stenosis with an AP diameter of 8 mm. Eyej-ou-tlgnmvdk bilateral foraminal narrowing present. L4-5: In addition to posterior fusion there has been a posterior decompression at this level. There is a large disc osteophyte complex protruding posteriorly. No central canal narrowing. Bilateral moderately severe foraminal narrowing. L5-S1: Circumferential disc bulge and posterior disc osteophyte complex results in moderate canal stenosis with an AP diameter of 7 mm. Bilateral severe foraminal narrowing secondary to facet arthrosis and disc osteophyte complex. Visualized abdominal contents unremarkable. IMPRESSION: Multilevel degenerative change of the lumbar spine with previous L4-5 fusion and decompression. Canal stenosis is most severe at L2-3, L3-4 and L5-S1. Foraminal narrowing most severe at L2-3, L4-5 and L5-S1. This document has been electronically signed by: Saroj Giron MD on 08/25/2025 20:47:44
--- OUTSIDE RECORDS SUMMARY | 2025-08-24 11:35 | XMS_ITS | Encounter Summary ---
Author Organization [employer] Address [address] [facility] 7t [place] [address] Care Team Providers Care Patient Financial Counselor Name Role Phone Shira Miramontes DO Primary Care Provider [phone] Jim May PharmD Unavailable Unavail able Allison Johns PharmD Unavailable Reason for Visit * Reason Comments Med Refill Encounter Details Date Type Department Care Team (Late st Contact Info) Description 01/17/2023 Refill [facility] [address] [place] [address] Shira Miramontes DO [address] [place], [place] [phone] Chronic bilateral low back pain, unspecified whether [...] documented as of this encounter Care Teams Patient Financial Counselor Relationship Specialty Start Date End Date Shira Miramontes DO [address] [place] [address] PCP - General Family Medicine 01/30/12 Jim May, JanaD [address] [place] [address] Pharmacist Internal Medicine 09/12/22 04/18/23 Allison Johns PharmD [address] [place] [address] Pharmacist Internal Medicine 04/19/23 01/11/25 documented as of this encounter
--- OUTSIDE RECORDS SUMMARY | 2025-08-24 11:35 | XMS_ITS | Encounter Summary ---
Author Organization [employer] Address [address] [facility] 7t [place] [address] Care Team Providers Care Services Delivery Driver Name Role Phone Shira Miramontes DO Primary Care Provider [phone] Jim May PharmD Unavailable Unavail able Allison Johns PharmD Unavailable [phone] Reason for Visit * Reason Comments Med Refill Encounter Details Date Type Department Care Team (Late st Contact Info) Description 02/21/2023 Refill [facility] [address] [place] [address] Shira Miramontes DO [address] [place] [address] Social History Tobacco Use Types Packs/Day Years [...] documented as of this encounter Care Teams Services Delivery Driver Relationship Specialty Start Date End Date Shira Miramontes DO [address] [place] [address] PCP - General Family Medicine 01/30/12 Jim May, PharmD [address] [place] [address] Pharmacist Internal Medicine 09/12/22 04/18/23 Allison Johns PharmD [address] [place] [address] Pharmacist Internal Medicine 04/19/23 01/11/25 documented as of this encounter
--- OUTSIDE RECORDS SUMMARY | 2025-08-24 11:35 | XMS_ITS | Encounter Summary ---
Author Organization [employer] Address [address] [facility] 7t [place] [address] Care Team Providers Care Environmental Science Technician Name Role Phone FeShira Primary Care Provider [phone] Allison Johns PharmD Unavailable [phone] Reason for Visit * Reason Comments Med Refill Encounter Details Date Type Department Care Team ([facility] st Contact Info) Description 06/28/2023 Refill [facility] [address] [place] [address] Keren Carty MD [address] [place] [address] Chronic bilateral low back pain, unspecified whether [...] documented as of this encounter Care Teams Environmental Science Technician Relationship Specialty Start Date End Date Shira Miramontes DO [address] [place] [address] PCP - General Family Medicine 01/30/12 Allison Johns PharmD [address] [place] [address] Pharmacist Internal Medicine 04/19/23 01/11/25 documented as of this encounter
--- OUTSIDE RECORDS SUMMARY | 2025-08-24 11:35 | XMS_ITS | Encounter Summary ---
Author Organization [facility] Prior to 07/03/2024 Address [address] [place] [address] Care Team Providers Care Spinning Lathe Operator Automatic Name Role Phone Shira Miramontes DO Primary Care Provider Greyson craig Encounter Details Date Type Department Care Team Description 09/18/2023 Space Systems Operations Manager Report Medical Records [address] [place] [address] [facility] [address] [place] [address] Social History Tobacco Use Types Packs/Day Years [...] on filedocumented in this encounter Care Teams Spinning Lathe Operator Automatic Relationship Specialty Start Date End Date Shira Miramontes DO PCP - General Internal Medicine 07/13/17 documented as of this encounter
--- OUTSIDE RECORDS SUMMARY | 2025-08-24 11:35 | XMS_ITS | Encounter Summary ---
Author Organization [employer] Address [address] [facility] 7t [place] [address] Care Team Providers Care Logistics Planning Engineer Name Role Phone Shira Miramontes DO Primary Care Provider [phone] Allison Johns PharmD Unavailable [phone] Reason for Visit * Reason Comments Med Refill Encounter Details Date Type Department Care Team ([facility] st Contact Info) Description 02/24/2024 Refill [facility] [address] [place] [address] Shira Miramontes DO [address] [place] [address] Insomnia, unspecified type Social History Tobacco Use [...] documented as of this encounter Care Teams Logistics Planning Engineer Relationship Specialty Start Date End Date Shira Miramontes DO [address] [place] [address] PCP - General Family Medicine 01/30/12 Allison Johns PharmD [address] [place] [address] Pharmacist Internal Medicine 04/19/23 01/11/25 documented as of this encounter
--- OUTSIDE RECORDS SUMMARY | 2025-08-24 11:35 | XMS_ITS | Encounter Summary ---
Author Organization [employer] Address [address] [facility] 7t [place] [address] Care Team Providers Care Panel Machine Tender Name Role Phone Shira Miramontes DO Primary Care Provider [phone] Allison Johns PharmD Unavailable [phone] Reason for Visit * Reason Comments Med Refill Encounter Details Date Type Department Care Team ([facility] st Contact Info) Description 12/21/2024 Refill [facility] [address] [place] [address] Shira Miramontes DO [address] [place] [address] Social History Tobacco Use Types Packs/Day Years [...] the past 12 months, has t he Course[employer], gas, oil or water company threatened to [...] documented as of this encounter Care Teams Panel Machine Tender Relationship Specialty Start Date End Date Shira Miramontes DO [address] [place] [address] PCP - General Family Medicine 01/30/12 Allison Johns PharmD [address] [place] [address] Pharmacist Internal Medicine 04/19/23 01/11/25 documented as of this encounter
--- OUTSIDE RECORDS SUMMARY | 2025-08-24 11:35 | XMS_ITS | Encounter Summary ---
Author Organization [facility] Prior to 07/03/2024 Address [address] [place] [address] Care Team Providers Care Oil Field Technician Name Role Phone Shira Miramontes DO Primary Care Provider Unava ilable Reason for Visit * Reason Onset Date Comments TEST RESULTS 03/03/2024 Encounter Details Date Type Department Care Team Description 03/03/2024 Telephone Pulmonology - [place] [address] [facility] [address] [place] [phone] Dougie Clark MD [address] [place] [address] TEST RESULTS Social History Tobacco [...] 03/03/2024 10:15 AM EDT Fax received from [facility] with [facility] scan report . Placed in providers folder documented in this encounter Plan of Treatment Not on file documented as of this encounter Visit Diagnoses Not on filedocumented in this encounter Care Teams Oil Field Technician Relationship Specialty Start Date End Date Shira Miramontes DO PCP - General Internal Medicine 07/13/17 documented as of this encounter
--- OUTSIDE RECORDS SUMMARY | 2025-08-24 11:35 | XMS_ITS | Encounter Summary ---
Author Organization [facility] Prior to 07/03/2024 Address [address] [place] [address] Care Team Providers Care Brake Operator Name Role Phone Shira Miramontes DO Primary Care Provider Unava ilable Encounter Details Date Type Department Care Team Description 08/24/2021 Orders Only Medical Records [address] [place] [address] Shar Funez MD [address] [place] [address] Social History Tobacco Use Types Packs/Day Years [...] on file documented as of this encounter Procedures Procedure Name Priority Date/Time Associated Diagnosis Comments OUTSIDE LDCT LUNG SCAN Routine 08/22/2021 documented in this encounter Results * OUTSIDE LDCT LUNG SCAN (08/22/2021) Shar Funez MD RADIOLOGY documented in this encounter Visit Diagnoses Not on filedocumented in this encounter Care Teams Brake Operator Relationship Specialty Start Date End Date Shira Miramontes DO PCP - General Internal Medicine 07/13/17 documented as of this encounter
--- OUTSIDE RECORDS SUMMARY | 2025-08-24 11:35 | XMS_ITS | Encounter Summary ---
Author Organization [employer] Address [address] [facility] 7t [place] [address] Care Team Providers Care Emergency Nurse Name Role Phone Shira Miramontes DO Primary Care Provider [phone] Allison Johns PharmD Unavailable [phone] Reason for Visit * Reason Comments Med Refill Encounter Details Date Type Department Care Team ([facility] st Contact Info) Description 03/02/2024 Refill [facility] & PEDS [address] [place], [place] [phone] Shira Miramontes DO [address] [facility] [place] [address] Chronic bilateral low back pain, unspecified whether [...] documented as of this encounter Care Teams Emergency Nurse Relationship Specialty Start Date End Date Shira Miramontes DO [address] [place] [address] PCP - General Family Medicine 01/30/12 Allison Johns PharmD [address] [place] [address] Pharmacist Internal Medicine 04/19/23 01/11/25 documented as of this encounter
--- OUTSIDE RECORDS SUMMARY | 2025-08-24 11:35 | XMS_ITS | Encounter Summary ---
Author Organization [facility] Prior to 07/03/2024 Address [address] [place] [address] Care Team Providers Care Psychiatry Adult Physician Name Role Phone Shira Miramontes DO Primary Care Provider Greyson craig Encounter Details Date Type Department Care Team Description 01/05/2019 Air Reduction Equipment Operator Report Medical Records [address] [place] [address] [place] [address] Social History Tobacco Use Types Packs/Day Years [...] on filedocumented in this encounter Care Teams Psychiatry Adult Physician Relationship Specialty Start Date End Date Shira Miramontes DO PCP - General Internal Medicine 07/13/17 documented as of this encounter
--- OUTSIDE RECORDS SUMMARY | 2025-08-24 11:35 | XMS_ITS | Encounter Summary ---
Author Organization [employer] Address [address] [facility] 7t [place] [address] Care Team Providers Care Pattern Assembler Name Role Phone Shira Miramontes DO Primary Care Provider [phone] Allison Johns PharmD Unavailable [phone] Reason for Visit * Reason Comments Med Refill Encounter Details Date Type Department Care Team ([facility] st Contact Info) Description 07/10/2024 Refill [facility] & PEDS [address] [place] [address] Shira Miramontes DO [address] [place] [address] Chronic low back pain, unspecified back pain [...] documented as of this encounter Care Teams Pattern Assembler Relationship Specialty Start Date End Date Shira Miramontes DO [address] [place] [address] PCP - General Family Medicine 01/30/12 Allison Johns PharmD [address] [place] [address] Pharmacist Internal Medicine 04/19/23 01/11/25 documented as of this encounter
--- OUTSIDE RECORDS SUMMARY | 2025-08-24 11:35 | XMS_ITS | Encounter Summary ---
Author Organization [facility] Prior to 07/03/2024 Address [address] [place] [address] Care Team Providers Care Airframe And Powerplant Technician Name Role Phone Shira Miramontes DO Primary Care Provider Unava ilable Reason for Visit * Reason Comments E-prescribe Rx Request Encounter Details Date Type Department Care Team Description 12/06/2021 Refill Pulmonology - [place] 175 [facility] [address] [place] [phone] Dougie Clark MD [address] [place] [address] E-prescribe Rx Request Social History [...] Miscellaneous Notes * Telephone Encounter - Keshia Alyssa - 12/06/2021 3:37 PM EDT Patient would [...] N/A Patients current insurance carrier is: Payor: [id number] / Plan: [facility] / Product Type: HMO [id number] documented in this encounter Plan of Treatment [...] adult documented in this encounter Care Teams Airframe And Powerplant Technician Relationship Specialty Start Date End Date Shira Miramontes DO PCP - General Internal Medicine 07/13/17 documented as of this encounter
--- OUTSIDE RECORDS SUMMARY | 2025-08-24 11:35 | XMS_ITS | Encounter Summary ---
Author Organization [facility] Prior to 07/03/2024 Address [address] [place] [address] Care Team Providers Care Etcher Electrolytic Name Role Phone Shira Miramontes DO Primary Care Provider Greyson craig Encounter Details Date Type Department Care Team Description 09/04/2022 Scissors Sharpener Report Medical Records [address] [place] [address] Center, [facility] [address] [place] [address] Social History Tobacco Use Types Packs/Day Years [...] on filedocumented in this encounter Care Teams Etcher Electrolytic Relationship Specialty Start Date End Date Shira Miramontes DO PCP - General Internal Medicine 07/13/17 documented as of this encounter
--- OUTSIDE RECORDS SUMMARY | 2025-08-24 11:35 | XMS_ITS | Encounter Summary ---
Author Organization [employer] Address [address] [facility] 7t [place] [address] Care Team Providers Care Die Keeper Name Role Phone Shira Miramontes DO Primary Care Provider + [phone] Reason for Visit * Reason Comments Med Refill Encounter Details Date Type Department Care Team ([facility] st Contact Info) Description 07/15/2025 Refill [facility] MEDICINE [address] [place], [place] [id number] Shira Miramontes DO [address] [place] [address] Chronic low back pain, unspecified back pain [...] the past 12 months, has t he [employer] gas, oil or water company threatened to [...] documented as of this encounter Care Teams Die Keeper Relationship Specialty Start Date End Date Shira Miramontes DO [address] [place] [address] PCP - General Family Medicine 01/30/12 documented as of this encounter
--- OUTSIDE RECORDS SUMMARY | 2025-08-24 11:35 | XMS_ITS | Encounter Summary ---
Author Organization [employer] Address [address] [facility] 7t [place] [address] Care Team Providers Care Naphtha Washing System Operator Name Role Phone FeShira Primary Care Provider [phone] Allison Johns PharmD Unavailable [phone] Reason for Visit * Reason Comments Med Refill Encounter Details Date Type Department Care Team ([facility] st Contact Info) Description 07/03/2023 Refill [facility] MEDICINE [address] [place] [address] Keren Carty MD [address] [place] [address] Chronic bilateral low back pain, unspecified whether [...] documented as of this encounter Care Teams Naphtha Washing System Operator Relationship Specialty Start Date End Date Shira Miramontes DO [address] [place] [address] PCP - General Family Medicine 01/30/12 Allison Johns PharmD [address] [place] [address] Pharmacist Internal Medicine 04/19/23 01/11/25 documented as of this encounter
--- OUTSIDE RECORDS SUMMARY | 2025-08-24 11:35 | XMS_ITS | Encounter Summary ---
Author Organization [facility] Prior to 07/03/2024 Address [address] [place] [address] Care Team Providers Care Special Agent In Charge Name Role Phone Shira Miramontes DO Primary Care Provider Greyson craig Encounter Details Date Type Department Care Team Description 08/21/2019 Combat Systems Operator Report Medical Records [address] [place] [id number] [place] [address] Social History Tobacco Use Types Packs/Day Years [...] on filedocumented in this encounter Care Teams Special Agent In Charge Relationship Specialty Start Date End Date Shira Miramontes DO PCP - General Internal Medicine 07/13/17 documented as of this encounter
--- OUTSIDE RECORDS SUMMARY | 2025-08-24 11:35 | XMS_ITS | Encounter Summary ---
Author Organization [employer] Address 75 [facility] 7t [place] [address] Care Team Providers Care Model And Dye Person Name Role Phone Shira Miramontes DO Primary Care Provider [phone] Allison Johns PharmD Unavailable [phone] Reason for Visit * Reason Comments Med Refill Encounter Details Date Type Department Care Team ([facility] st Contact Info) Description 02/22/2024 Refill [facility] MEDICINE [address] [place] [address] Shira Miramontes DO [address] [place] [address] Social History Tobacco Use Types Packs/Day Years [...] documented as of this encounter Care Teams Model And Dye Person Relationship Specialty Start Date End Date Shira Miramontes DO [address] [place] [address] PCP - General Family Medicine 01/30/12 Allison Johns PharmD [address] [place] [address] Pharmacist Internal Medicine 04/19/23 01/11/25 documented as of this encounter
--- OUTSIDE RECORDS SUMMARY | 2025-08-24 11:35 | XMS_ITS | Clinical Summary ---
Author Organization [employer] Address [address] [facility] 7t [place] [address] Care Team Providers Care Diagnostic Technician Name Role Phone Fe Shira Primary Care Provider + [phone] Allergies No known active allergies Medications * [...] complication, without long-term current use of insulin ([facility]) INJECT ONE PEN (=1.5MG) SUBCUTANEOUSLY [...] complication, without long-term current use of insulin ([facility]) TEST BLOOD SUGAR TWICE DAILY 100 each 11 025 Active glucose blood (FREESTYLE LITE) test stripIndications :Type 2 diabetes mellitus without complication, without long-term current use of insulin ([facility]) TEST BLOOD SUGAR TWICE DAILY 100 strip 11 08/02/20 25 2:35 PM EST 025 Active TRUEplus Lancets 33G miscIndications: Type 2 diabetes mellitus without complication, without long-term current use of insulin ([facility]) TEST BLOOD SUGAR TWICE DAILY [...] s/p L4-5 decompression/fusion, lumbar disc herniation Last BEAD WORKER SEWING Agreement: 02/09/25 Tier 2 (BEAD WORKER SEWING Q3mo) - last evaluated by PCP in [...] -UTOX as expected. Pill count abnormal. See marine pilot, message sent to PCP by RN. Obstructive [...] Team Description 08/06/2025 Refill [facility] [address] [place] [address] Shira Miramontes, Chronic bilateral low back pain, unspecified whether sciatica present 08/05/2025 Refill [facility] MED & PEDS [address] [place] [address] Shira Miramontes DO Depression, unspecified depression type; Chronic bilateral low back pain, unspecified whether sciatica present 07/28/2025 Refill [facility] MEDICINE [address] [place] [address] Shira Miramontes, Chronic low back pain, unspecified back pain laterality, unspecified whether sciatica present 07/19/2025 Orders Only [facility] MEDICINE [address] [place] [address] Shira Miramontes DO Chronic low back pain, unspecified back pain laterality, unspecified whether sciatica present (Primary Dx) 07/15/2025 Telephone [facility] [address] [place] [address] Shira Miramontes DO 07/15/2025 Refill [facility] MEDICINE [address] [place] [address] Shira Miramontes DO Chronic low back pain, unspecified back pain laterality, unspecified whether sciatica present 06/23/2025 Refill [facility] MED[facility]INE [address] [place] [address] Shira Miramontes, Type 2 diabetes mellitus without complication, without long-term current use of insulin (HCC); Chronic low back pain, unspecified back pain laterality, unspecified whether sciatica present 06/07/2025 Telephone [facility] [address] [place] [address] Shira Miramontes DO 06/04/2025 Refill [facility] MED & PEDS [address] [place] [address] Shira Miramontes DO 05/25/2025 11:00 AM EDT Office Visit [facility] MEDICINE [address] [place] [address] Antoinette Gabriel, FIRE EXTINGUISHER SPRINKLER INSPECTOR Chronic low back pain, unspecified back pain laterality, unspecified whether sciatica present (Primary Dx); Long-term current use of opiate analgesic 05/25/2025 Travel from Last 3 Months Immunizations Immunization [...] patients manage their type 2 diabetes No Vazquezortiz Providencia Weekly blood pressure task Care Plan Weekly blood pressure task No Vazquezortiz, Providencia Help patients manage their type 2 diabetes Care Plan Help patients manage their type 2 diabetes No Vazquezortiz Providencia Patient has chronic kidney disease Care Plan Patient has chronic kidney disease No Vazquezortiz, Providencia Weekly blood pressure task Care Plan Weekly blood pressure task No Vazquezortiz, Providencia Patient has chronic kidney disease Care Plan Patient has chronic kidney disease No Vazquezortiz Providencia Weekly blood pressure task Care Plan [...] without long-term current use of insulin (CMS/HCC) HEPATITIS C AB W/REFL TO HCV RNA, [...] complication, without long-term current use of insulin ([facility]) HM COLONOSCOPY Routine 01/04/2014 11:42 [...] - 05/25/2025 11:24 AM EDT UTOX cup Lot#[id number] Exp. 06/08/26 Internal Pass Control Antoinette COSTAP POINT OF CARE TEST ENTER/EDIT ORDERABLES Final Result * (ABNORMAL) POCT Hgb A1c (05/11/2025 10:07 AM EDT) Hemoglobin A1C 6.3(A) 4.0 - 5.7 % QC Media Lot # [id number] Lot# Expiration Date ,791 Blood 05/11/2025 10:0 7 AM EDT Shira Miramontes DO POINT OF CARE TEST ENTER/ROSARIO T ORDERABLES Final Result * Albumin, Random Urine W/Creatinine (07/15/2024 8:33 AM EST) Creatinine, Urine 181.01 mg/dL [facility] Microalbumin Urine 8.0 mg/L H [facility] Microalbum Creatinine Ratio Ur 4.4 <30 ug/mg cr [facility] Comment:Albumin/Creatinine R atio Reference Ranges: Normal: < 30 ug/mg creatinine Microalbuminuria: 30 - 300 ug/mg creatinineClinical Albuminuria: > 300 ug/mg creatinine Urine (Urine, Random) 07/15/2024 8:33 AM EST 07/15/2024 10:47 AM EST Shira [place]pinkykaren LAB URINE ORDERABLES Final R esult Performing Organization Address [facility] Co de Phone Number [facility] [address] [place] [phone] * Hepatitis C Antibody with Reflex to HCV, RNA, Quantitative, Real-Time PCR (07/15/2024 8:33 AM EST) Hepatitis C Antibody Nonreactive Nonreactive [facility] Comment:Antibodies to HCV no t detected; does not exclude early acuteHCV infection. Blood Venous blood specimen / Unknown 07/15/2024 8:33 AM EST 07/15/2024 10:51 AM EST Shira Burtonpinkykaren [facility] LAB BLOOD ORDERABLES Final R esult Performing Organization Address [facility] de Phone Number [facility] [address] [place] [phone] * HIV-1/2 Antigen and Antibodies, Fourth Generation, with Reflexes (07/15/2024 8:33 AM EST) HIV AB/AG Nonreactive Nonreactive [facility] Comment:HIV-1 p24 Ag and/or HIV-1/HIV-2 Ab not detected.A test result that is nonreactive does not exclude thepossibility of exposure to or infection with HIV-1 and/orHIV-2. Nonreactive results in this assay for individualswith prior exposure to HIV-1 and/or HIV-2 may be due toantigen and antibody levels that are below the limit ofdetection of this assay.The ClearServe HIV Ag/Ab Combo assay result andsupplemental assay results should be interpreted inconjunction with the patient's clinical presentation,history and other laboratory results. If the results areinconsistent with clinical evidence, additional testing issuggested to confirm the result. Blood Venous blood specimen / Unknown 07/15/2024 8:33 AM EST 07/15/2024 10:51 AM EST Shira Miramontes DO LAB BLOOD ORDERABLES Final R esult Performing Organization Address [facility] Co de Phone Number [facility] [address] [place] [phone] * (ABNORMAL) Lipid Panel, Standard (07/15/2024 8:33 AM EST) Triglycerides 159(H) <150 mg/dL [facility] Comment:Desirable Triglyceri de: less than 150 mg/dLBorderline High Triglyceride 150-199 mg/dLHigh Triglyceride: 200-499 mg/dLVery High Triglyceride: greater than or equal to 5OO mg/dL Cholesterol 110 <200 mg/dL [facility] Comment:Desirable Cholestero l: less than 200 mg/dLBorderline High Cholesterol: 200-239 mg/dLHigh Cholesterol: greater than 239 mg/dL LDL Cholesterol Calculated 48 <100 mg/dL [facility] Comment:Desirable LDL: less than 100 mg/dLNear Optimal/Above Optimal LDL: 110- 129 mg/dLBorderline High LDL: 130-159 mg/dLHigh LDL: 160-189 mg/dLVery High LDL: greater than or equal to 190 mg/dL HDL Cholesterol 31(L) >40 mg/dL [facility] Comment:Desirable HDL: great er than 40 mg/dL Note: This HDL assay may give artificially low results in patients with liver disease. Blood Venous blood specimen / Unknown 07/15/2024 8:33 AM EST 07/15/2024 10:51 AM EST Shira Miramontes DO LAB BLOOD ORDERABLES Final R esult Performing Organization Address [facility] Co de Phone Number [facility] [address] [place] [phone] [phone] * Hm Colonoscopy (01/04/2014 11:42 AM [...] Patient has chronic kidney disease 08/06/2025 Insurance [facility] CARE < [address] [place] [id number] Care Teams Diagnostic Technician Relationship Specialty Start Date End Date Shira Miramontes DO [address] [place] [address] PCP - General Family Medicine 01/30/12
--- OUTSIDE RECORDS SUMMARY | 2025-08-24 11:35 | XMS_ITS | Encounter Summary ---
Author Organization [employer] Address [address] [place] [address] 7t [place] [address] Care Team Providers Care Metal Sprayer Protective Coating Name Role Phone FredericShira jones Primary Care Provider [phone] Allison Johns PharmD Unavailable [phone] Encounter Details Date Type Department Care Team (Late st Contact Info) Description 04/19/[address] [facility] MEDICINE [address] [place] [address] Allison Johns, PharmD [address] [place] [address] Social History Tobacco Use Types Packs/Day Years [...] documented as of this encounter Care Teams Metal Sprayer Protective Coating Relationship Specialty Start Date End Date Shira Miramontes DO [address] [place] [address] PCP - General Family Medicine 01/30/12 Allison Johns PharmD [address] [place] [address] Pharmacist Internal Medicine 04/19/23 01/11/25 documented as of this encounter
--- OUTSIDE RECORDS SUMMARY | 2025-08-24 11:35 | XMS_ITS | Clinical Summary ---
Author Organization [facility] Prior to 01/30/25 Address [address] [place] [address] Care Team Providers Care Switch Box Installer Name Role Phone Shira Miramontes DO [...] age to complete this topic Care Teams Switch Box Installer Relationship Specialty Start Date End Date Shira Miramontes DO [address] [place] [address] PCP - General Family Medicine 05/10/17
--- OUTSIDE RECORDS SUMMARY | 2025-08-24 11:35 | XMS_ITS | Encounter Summary ---
Author Organization [employer] [facility] Address [address] [place] [address] 7 [place] [address] Care Team Providers Care Woodworking Bench Carpenter Name Role Phone Shira Miramontes DO Primary Care Provider [phone] Jim May PharmD Unavailable Unavail able Allison Johns PharmD Unavailable Reason for Visit * Reason Comments Med Refill Encounter Details Date Type Department Care Team (Late st Contact Info) Description 08/10/2022 Refill [facility] MEDICINE [address] [place] [address] Shira Miramontes DO [address] [place] [address] Social History Tobacco Use Types Packs/Day Years [...] on filedocumented in this encounter Care Teams Woodworking Bench Carpenter Relationship Specialty Start Date End Date Shira Miramontes DO [address] [place] [address] PCP - General Family Medicine 01/30/12 Jim May, PharmD [address] [place] [address] Pharmacist Internal Medicine 09/12/22 04/18/23 Allison Johns, PharmD [address] [place] [address] FL[place]ES[place] Brannon [address] Pharmacist Internal Medicine 04/19/23 01/11/25 documented as of this encounter
--- OUTSIDE RECORDS SUMMARY | 2025-08-24 11:36 | XMS_ITS | Encounter Summary ---
Author Organization [employer] Address [address] [facility] 7t [place] [address] Care Team Providers Care Fund Development Manager Name Role Phone Shira Miramontes DO Primary Care Provider [phone] Allison Johns PharmD Unavailable [phone] Encounter Details Date Type Department Care Team (Late st Contact Info) Description 10/06/2024 Orders Only [facility] [address] [place] [address] Provider, MD Lu Social History Tobacco Use [...] documented as of this encounter Care Teams Fund Development Manager Relationship Specialty Start Date End Date Shira Miramontes DO [address] [place], [place] [phone] PCP - General Family Medicine 01/30/12 Allison Johns PharmD [address] [place] [address] Pharmacist Internal Medicine 04/19/23 01/11/25 documented as of this encounter
--- OUTSIDE RECORDS SUMMARY | 2025-08-24 11:36 | XMS_ITS | Encounter Summary ---
Author Organization [employer] Address [address] [facility] 7t [place] [address] Care Team Providers Care Granite Setter Name Role Phone Shira Miramontes DO Primary Care Provider + [phone] Allison Johns PharmD Unavailable [phone] Encounter Details Date Type Department Care Team (Late st Contact Info) Description 12/11/2023 Orders Only [facility] MEDICINE [address] [place] [address] ProviderLu MD Social History Tobacco Use Types [...] documented as of this encounter Care Teams Granite Setter Relationship Specialty Start Date End Date Shira Miramontes DO [address] [place] [address] PCP - General Family Medicine 01/30/12 Allison Johns PharmD [address] [place] [address] Pharmacist Internal Medicine 04/19/23 01/11/25 documented as of this encounter
--- OUTSIDE RECORDS SUMMARY | 2025-08-24 11:36 | XMS_ITS | Encounter Summary ---
Author Organization [employer] Address [address] [facility] 7t [place] [address] Care Team Providers Care Energy Audit Advisor Name Role Phone Shira Miramontes DO Primary Care Provider [phone] Allison Johns PharmD Unavailable [phone] Reason for Visit * Reason Comments Med Refill Encounter Details Date Type Department Care Team ([facility] st Contact Info) Description 10/22/2024 Refill [facility] MEDICINE [address] [place] [address] Shira Miramontes DO [address] [place] [address] Chronic low back pain, unspecified back pain [...] documented as of this encounter Care Teams Energy Audit Advisor Relationship Specialty Start Date End Date Shira Miramontes DO [address] [place] [address] PCP - General Family Medicine 01/30/12 Allison Johns PharmD [address] [place] [address] Pharmacist Internal Medicine 04/19/23 01/11/25 documented as of this encounter
--- OUTSIDE RECORDS SUMMARY | 2025-08-24 11:36 | XMS_ITS | Clinical Summary ---
Author Organization [facility] Address [address] [place] [address] Phone Care Team Providers Care Layout Operator Name Role Phone Shira Miramontes DO Primary Care Provider +1- [phone] Medications Trelegy Ellipta 100-62.5-25 mcg inhalerIndicatio ns:Obstructive sleep apnea (adult) (pediatric),Activities Leader hudson obstructive pulmonary disease, unspecified ([facility]) INHALE 1 PUFF EVERY DAY AT THE SAME TIME 60 each 08/12/2024 Active Surgical History Surgery Date Site/Laterality Comments COLONOSCOPY 12/2013 PROCEDURE: HISTORICAL COLONOSCOPY; COMMENT: Hyperplastic Polyp BACK SURGERY 2016 PROCEDURE: HISTORICAL BACK SURGERY Medical History Medical History Date Comments COPD (chronic obstructive pu lmonary disease) ([facility]) 07/09/2017 DX:COPD (chronic o bstructive pulmonary disease) ([facility]) RENEE (obstructive sleep apnea) 07/09/2017 DX :RENEE (obstructive sleep apnea); COMMENT: CPAP Hyperlipidemia 07/09/2017 DX:Hyperlipidemi a Hypertension 07/09/2017 DX:Hypertension CAD (coronary artery disease) 07/09/2017 DX :CAD (coronary artery disease); COMMENT: 11/[address] Strss Tst- Inferior Ischemia Pulmonary asbestosis ([facility] V24, [facility]) 07/09/2017 DX:Pulmonary asbestosis ([facility] ) Depression 07/09/2017 DX:Depression Protrusion of lumbar interve rtebral disc 07/09/2017 DX:Protrusion of lumbar intervertebral disc; COMMENT: Scheduled for L4-5 discectomy & fusion April 2017 Diabetes mellitus type 2, uncomplicated ([facility] [place], [facility]) 07/09/2017 DX:Diabetes mellitus type 2, uncomplicated ([facility]) Hyperplastic colon polyp 07/09/2017 DX:Hype rplastic colon [...] patient's age to complete this topic Insurance [facility] Member Subscriber Plan / Payer (Ef fective 2019-Present) Name:[place] Bo Relation to Subscriber:Self Name:[place] Bo Payer ID:[id number] Group ID:[id number] Type:Not on file Address: [place] [address] [place] [id number] Care Teams Layout Operator Relationship Specialty Start Date End Date Shira Miramontes DO [address] [place], [place] PCP - General Internal Medicine 07/13/17
== END 2025-08-24 10:20 | disposition home or self-care (01) ==
LOC: HO.CT 10:19
PROVIDERS: PCP Family Medicine; Visit Provider Family Medicine
DX: M54.50 Low back pain, unspecified (principal); G89.29 Other chronic pain
CPT/HCPCS: 72131

== ENCOUNTER → 2025-08-24 10:21 | Outpatient (BNV) | payer OTHER, SELFPAY | PROVIDERS: PCP Family Medicine; Visit Provider Radiology Diagnostic Radiology | DX: M51.360 Other intervertebral disc degeneration, lumbar region with discogenic back pain only (principal); M48.061 Spinal stenosis, lumbar region without neurogenic claudication | CPT/HCPCS: 72131 ==